=== PATIENT | female | born 1955 | race Caucasian/White ===

== ENCOUNTER 2019-10-22 07:49 | Outpatient (CLI) | payer SELFPAY ==
[2019-10-22 08:54] LABS: Alanine Aminotransferase 18 U/L (14-59); Albumin Level 3.5 g/dL (3.4-5.0); Alkaline Phosphatase 75 U/L (46-116); Anion Gap 10.9 mmol/L (7-16); Aspartate Amino Transferase 17 U/L (15-37); Bilirubin,Total 0.5 mg/dL (0.00-1.00); Blood Urea Nitrogen 7 mg/dL (7-18); Calcium 9.3 mg/dL (8.5-10.1); Carbon Dioxide 32 mmol/L (21-32); Chloride 103 mmol/L (98-108); Cholesterol 211 mg/dL (0-200); Estimated Glomerular Filt Rate > 60; Glucose 124 mg/dL (70-99); HDL Direct 29 mg/dL (40-60); LDL Cholesterol Calculated 142 mg/dL (<130); Osmolality Calculated 293 mOsm/kg (285-295); Potassium 3.9 mmol/L (3.5-5.1); Sodium 142 mmol/L (136-145); Total Protein 7.2 g/dL (6.4-8.2); Triglycerides 201 mg/dL (0-150)
== END 2019-10-22 07:50 | disposition home or self-care (01) ==
LOC: CHSLAB 07:53
PROVIDERS: PCP Internal Medicine; Visit Provider Internal Medicine
DX: E78.5 Hyperlipidemia, unspecified (principal); I10 Essential (primary) hypertension
CPT/HCPCS: 36415; 80053; 80061

== ENCOUNTER 2023-02-16 15:20 | Emergency (ER) | payer MEDICARE, SELFPAY ==
--- NOTE | ~2023-02-16 | XR_ITS ---
EXAM: XR shoulder LT min 2V, XR forearm LT 2V, XR elbow LT min 3V DATE: 02/16/2023 16:33 (accession [id number]), 02/16/2023 16:34 (accession [id number]), 02/16 16:33 (accession [id number]) HISTORY: fall 1 wk ago, pain to posterior shoulder-mid humerus . COMPARISON: None available. FINDINGS: Decreased mineralization. Soft tissue anchors over the glenoid labrum. Mildly angulated mi ldly overlapping fracture of the surgical neck of the left proximal humerus. No lytic or blastic lesi on. Moderate degenerative change at the AC joint and glenohumeral joint. Mild degenerative change at the left elbow joint and intercarpal joint. No erosion or periosteal change. Soft tissues within norm al limits. IMPRESSION: Mildly angulated, mildly overlapping fracture of the left proximal humerus. Reviewed, dictated and finalized at location K. [employer] IMPRESSION: Mildly angulated, mildly overlapping fracture of the left proximal humerus. IMPRESSION: Mildly angulated, mildly overlapping fracture of the left proximal humerus.
[2023-02-16 15:28] VITALS: BP 134/86; PULSE 106; RESP 18; TEMP 36.7; O2SAT 94
--- NOTE | 2023-02-16 15:52 | ED.UPPEXIN ---
HPI - Extremity Injury (Upper) General Chief Complaint: Extremity Injury, Upper Stated Complaint: L shoulder pain/fall Source: patient Mode of arrival: ambulatory History of Present Illness HPI narrative: Pt fell on the left side and hit her LUE a week ago. Pain is the same, a/w limited ROM, inability to move her arm. Pain at the shoulder and elbow. Bruised in the arm. Did not hit her head. Pt is not on blood thinner. Denied any altered mental status. MD complaint: injury to: left, shoulder, arm, elbow and forearm Onset (ago): day(s) Related Data Home Medications Medication Instructions Recorded Confirmed amlodipine 5 mg-benazepril 10 mg 1 cap PO DAILY 02/16/23 02/16/23 capsule cetirizine 10 mg tablet (Zyrtec) 10 mg PO DAILY 02/16/23 02/16/23 metoprolol succinate 50 mg 50 mg PO DAILY 02/16/23 02/16/23 tablet,extended release 24 hr montelukast 10 mg tablet 10 mg PO DAILY 02/16/23 02/16/23 pantoprazole 40 mg tablet,delayed 40 mg PO DAILY 02/16/23 02/16/23 release potassium chloride 10 mEq 10 meq PO DAILY 02/16/23 02/16/23 tablet,extended release triamterene 37.5 1 tablet PO DAILY 02/16/23 02/16/23 mg-hydrochlorothiazide 25 mg tablet Allergies Allergy/AdvReac Type Severity Reaction Status Date / Time acetaminophen [From Percocet] Allergy Hives Verified 02/16/23 15:30 amoxicillin [From Augmentin] Allergy Hives Verified 02/16/23 15:30 clavulanic acid Allergy Hives Verified 02/16/23 15:30 [From Augmentin] codeine Allergy Hives Verified 02/16/23 15:30 oxycodone [From Percocet] Allergy Hives Verified 02/16/23 15:30 Review of Systems Constitutional: Constitutional: Reports as per HPI and Reports no additional constitutional complaints Eyes: Eyes: Reports as per HPI and Reports no additional eye complaints ENT: Reports system reviewed and no additional complaints, except as documented and Reports as per HPI Cardiovascular: Cardiovascular: Reports as per HPI and Reports no additional cardiovascular complaints Respiratory: Respiratory: Reports as per HPI and Reports no additional respiratory complaints Gastrointestinal: Gastrointestinal: Reports as per HPI and Reports no additional gastrointestinal complaints Genitourinary: Genitourinary: Reports as per HPI Musculoskeletal: Musculoskeletal: Reports no additional musculoskeletal complaints and Reports as per HPI Integumentary/Breasts: Skin/Breast: Reports system reviewed and no additional complaints, except as docu and Reports as per HPI Neurologic: Reports system reviewed and no additional complaints, except as documented and Reports as per HPI Psychiatric: Psychiatric: Reports no additional psychiatric complaints and Reports as per HPI Endocrine: Endocrine: Reports no additional endocrine complaints and Reports as per HPI Hematologic/Lymphatic: Hematologic/Lymphatic: Reports no additional hematologic/lymphatic complaints and Reports as per HPI Allergic/Immunologic: Allergic/Immunologic: Reports no additional allergic/immunologic complaints and Reports as per HPI Exam Const: General: cooperative, healthy appearing, comfortable, no acute distress, well developed, alert, awake, average body habitus and well nourished Nutritional Appearance: average body habitus and well nourished Orientation/consciousness: oriented to person, oriented to place and oriented to time Limitations: no limitations HENMT: Head: normal to inspection Ears: hearing grossly normal bilaterally, external ears normal and TM's normal bilaterally Face/Nose/Sinus: Normal external nose present, Normal nares present, No nasal polyps present, Normal nasal mucous membranes and turbinates present, Normal septum present, No nasal discharge present, normal facial exam, sinuses nontender and face symmetric Face and sinus: normal facial exam, sinuses nontender and face symmetric Mouth: Yes Normal oral and palatal mucosa present, Yes lip normal, Yes tongue normal, Yes Normal salivary glands an
--- NOTE | 2023-02-16 16:28 | PC.NURSE ---
On 02/16/23, the student, [johnathan alaniz ], provided care and completed [facility] documentation on this patient. I have reviewed the student's documentation and agree with the findings.
[2023-02-16 17:45] VITALS: BP 146/76; PULSE 81; RESP 18; TEMP 36.6; O2SAT 98
== END 2023-02-16 17:49 | disposition home or self-care (01) ==
PROVIDERS: Emergency Provider Emergency Medicine
DX: S42.292A Other displaced fracture of upper end of left humerus, initial encounter for closed fracture (principal); Z79.899 Other long term (current) drug therapy; W19.XXXA Unspecified fall, initial encounter; Z91.81 History of falling
CPT/HCPCS: 73030; 73080; 73090; 99284; A4565

== ENCOUNTER 2023-09-30 12:59 | Outpatient (CLI) | payer MEDICARE, SELFPAY ==
--- NOTE | ~2023-09-30 | DEXA_ITS ---
? Bone Density Report? Name:? JENA JYOTHI Carmelita Patient ID:??? [id number] Age:? 68 Sex:? Female Ethnicity:? White Date of : 1955 Indication: postmenopausal; screening for osteoporosis; height loss; prior fracture; asthma or emphysema; hysterectomy; Referring Provider: ANTONIA, DAFNE Shaw Study: Bone densitometry was performed. Exam Date: September 30, 2023 Accession number: [id number] Bone Density: Region?BMD??? T-score? Z-score?? Classification AP Spine(L1-L4)? 0.706?? -3.1? -1.3? Osteoporosis Femoral Neck (Left)? 0.602?? -2.2? -0.7? Osteopenia Total Hip (Left)? 0.612?? -2.7? -1.4? Osteoporosis Femoral Neck (Right)? 0.583?? -2.4? -0.8? Osteopenia Total Hip (Right)? 0.672?? -2.2? -0.9? Osteopenia Femoral Neck Mean? 0.593?? -2.3? -0.7? Osteopenia Total Hip Mean? 0.642?? -2.5? -1.2? Osteoporosis World Health Organization criteria for BMD impression classify patients as: Normal (T-score at or above -1.0), Osteopenia (T-score between -1.0 and -2.5), or Osteoporosis (T-score at or below -2.5). 10-year Fracture Risk: FRAX not reported because: ? Some T-score for Spine Total or Hip Total or Femoral Neck at or below -2.5 Clinical Information Provided by Patient: Has had a low trauma fracture Smokes Has the following medical conditions: Asthma or Emphysema, Hysterectomy Patient maximum height was 65 Menopause Age: 40 No regular weight bearing exercise Does not regularly consume dairy products Drinks caffeinated beverages Onset of menses at age 14 Number of children 2 Missed period for more than 6 months in a row Impression: The patient has established osteoporosis, based on the Total Spine T-score and the existence of a prior fracture. The patient has risk factors, including: smoking, previous fracture. Discussion: HIGH RISK OF FRACTURE. BONE DENSITY IS UNDESIRABLY LOW AT ONE OR MORE SKELETAL SITES, CONSISTENT WITH POSTMENOPAUSAL OSTEOPOROSIS. This patient's lowest T-score, in a patient who has previously fractured, meets the World Health Organization's (WHO) criteria for severe osteoporosis. In untreated patients, the risk of osteoporotic fracture increases approximately two-fold for each 1.0 SD decrease in T-score.? Low bone density is not the only risk factor for fracture; also consider factors such as patient's age, frailty or poor health, risk of falling, risk of injury, previous osteoporotic fracture, family history of osteoporosis, cigarette smoking, low body weight, etc.? Not everyone with low bone mineral density has osteoporosis; osteomalacia and other metabolic bone disorders should also be considered. Patients who have osteoporosis should be e
--- NOTE | ~2023-09-30 | CT_ITS ---
EXAMINATION: CT lung screening DATE: 09/30/2023 13:14 INDICATION: History of nicotine dependence TECHNIQUE: Computed tomography (CT) of the chest was performed without intravenous contrast. Addition al 3D reconstructions utilizing coronal maximum intensity projection (MIP) were performed. Automated exposure control and iterative reconstruction technique were employed. The dose-length product was 64 .52 mGy-cm. COMPARISON: None FINDINGS: There are a few scattered <4 mm pulmonary nodules in both lungs. These include a few lenticular nodul es along the fissures consistent with intrafissural lymph nodes. No other larger pulmonary nodules, p neumonia, pulmonary edema or pleural effusion. Heart size is normal. Atherosclerotic coronary artery calcification. No pericardial effusion. Thoracic aorta is normal in caliber. No pathologically enlarg ed thoracic lymphadenopathy. Mild S-shaped curvature of the thoracic spine with moderate spondylosis. IMPRESSION: 1. Lung-RADS category 2: Benign appearance or behavior. Continue annual screening with noncontrast lo w-dose chest CT in 12 months. Reviewed, dictated and finalized at location B. IMPRESSION: 1. Lung-RADS category 2: Benign appearance or behavior. Continue annual screeni ng with noncontrast low-dose chest CT in 12 months.
== END 2023-09-30 13:00 | disposition home or self-care (01) ==
LOC: CHSIMG 13:01
PROVIDERS: PCP Internal Medicine; Visit Provider Internal Medicine
DX: Z12.2 Encounter for screening for malignant neoplasm of respiratory organs (principal); Z87.891 Personal history of nicotine dependence; Z78.0 Asymptomatic menopausal state; M81.0 Age-related osteoporosis without current pathological fracture; M85.89 Other specified disorders of bone density and structure, multiple sites
CPT/HCPCS: 71271; 77080

== ENCOUNTER 2024-05-08 18:34 | Emergency (ER) | payer MEDICARE, SELFPAY ==
[2024-05-08] VITALS (7 sets, daily range): BP systolic 147–154; BP diastolic 82–88; PULSE 80–85; RESP 17–21; TEMP 37.1; O2SAT 94–97
--- NOTE | ~2024-05-08 | XR_ITS ---
EXAMINATION: XR chest 1V portable Exam Date/Time: 05/08/2024 19:07 ALL AROUND PRESSER HISTORY: COPD exacerbation Comparison: None. RESULT: Lines, tubes, and devices: None. Lungs and pleura: Clear. Cardiomediastinal silhouette: Stable. Other: No acute osseous or upper abdominal finding. IMPRESSION: No acute cardiopulmonary process. Reviewed, dictated and finalized at location K. AROUND PRESSER
--- OUTSIDE RECORDS SUMMARY | 2024-05-08 18:37 | XMS_ITS | Patient Health Summary ---
Author Organization [facility] Address [address] [place] [address] Care Team Providers Care Pilot Boat Operator Name Role Phone Bhaskar Henry MD Primary Care Provider [phone] Note from [facility],non-owned Affiliates and Associated Physician Practices is amultiple site organization consisting of ambulatory clinics and hospital sitesin [place], [place], [place] and [place]. This disclosure is being madepursuant to the Care Everywhere program and may not contain all information available regarding this patient. Last updated 17.[facility] Allergies * Chicken-Derived Products(Other) * Codeine(Urticaria,Other) -Medium Criticality * Albumin(Anaphylaxis) -High Criticality * Fish(Anaphylaxis) -High Criticality * Latex(Anaphylaxis,Other) -High Criticality * Shellfish Allergy(Anaphylaxis,Other) -High Criticality * Sulfa Drugs(Nausea and/or Vomiting,Rash,Vomiting) -Medium Criticality Medications * Be aware that medications may not be up to date on this document. Alwaysverify current medications with the patient. * metoprolol succinate XL 24hr (TOPROL XL) 50 MG tablet Take 50 mg by mouth once daily * cetirizine (ZYRTEC) 10 MG tablet Take 10 mg by mouth once daily * pantoprazole EC (PROTONIX) 40 MG tablet Take 40 mg by mouth once daily * ascorbic acid (VITAMIN C) 500 MG tablet Take 500 mg by mouth once daily * simethicone (GAS-X) 80 MG tablet Take 1 tablet by mouth once daily * montelukast (SINGULAIR) 10 MG tablet Take 10 mg by mouth once daily * vitamin E (TOCOPHERYL) 400 UNIT capsule Take 400 Units by mouth once daily * albuterol HFA (PROVENTIL;VENTOLIN;PROAIR) 108 (90 Base) MCG/ACT inhaler (Started 07/30/2019) Inhale 2 puffs by mouth 2 times daily * Multiple Vitamins-Minerals (MULTIVITAMIN ADULT PO) Take 1 tablet by mouth once daily * aspirin (ASPIRIN) 325 MG tablet Take 325 mg by mouth once daily * Wbheuni-Jvsjuhdoj-Telcuqd D 500-250-200 MG-MG-UNIT TABS Take 1 tablet by mouth once daily * nystatin (MYCOSTATIN) 585463 UNIT/ML suspension(Started 08/04/2019) Swish and swallow 5 mL 3 times daily as needed with food * pravastatin (PRAVACHOL) 40 MG tablet(Started 01/29/2020) Take 1 tablet by mouth at bedtime 11 refills by 01/28/2021 * dexamethasone (DECADRON) 1 MG tablet(Started 02/22/2020) Take 2 tablets by mouth 3 times daily Active Problems Problem Noted Date Diagnosed Date Cerebrovascular accident (CVA) 01/28/2020 Social History Tobacco Use Types Packs/Day Years Used Date Smoking Tobacco: Some Days Cigarettes Smokeless Tobacco: Never Tobacco Cessation:Ready to Q uit: No; Counseling Given: Yes Alcohol Use Standard Drinks/Week Comments Never 0 (1 standard drink = 0.6 oz pur e alcohol) AUDIT-C Answer Date Recorded Q1: How often do you have a drink containing alc ohol? Never 02/22/2020 Average Number of Drinks Not on file 020 Frequency of Binge Drinking Not on file 02/05 Sex and Gender Information Value Date Recorded Sex Assigned at Not on file Gender Identity Not on file Sexual Orientation Not on file Last Filed Vital Signs Vital Sign Reading Time Taken Comments Blood Pressure 130/46 01/29/2020 11:46 AM CDT Pulse 73 01/29/2020 11:46 AM CDT Temperature 37.2 ??C (98.9 ??F) 01/29/2020 11:46 AM C DT Respiratory Rate 18 01/29/2020 11:46 AM CDT Oxygen Saturation 92% 01/29/2020 11:46 AM CDT Inhaled Oxygen Concentration - - Weight 81.6 kg (180 lb) 02/22/2020 2:47 PM 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 ENGINEER Height 165.1 cm (5' 5 ) 02/22/2020 2:47 PM QUALITY ENGINEER Body Mass Index 29.95 02/22/2020 2:47 PM QUALITY ENGINEER Procedures * CARDIAC RHYTHM STRIP ORDER(Performed 02/01/2020) * GLUCOSE - POINT OF CARE(Performed 01/29/2020) * GLUCOSE - POINT OF CARE(Performed 01/29/2020) * TROPONIN I(Performed 01/29/2020) * CBC W AUTO DIFFERENTIAL(Performed 01/29/2020) * LIPID PROFILE(Performed 01/29/2020) * TROPONIN I(Performed 01/28/2020) * MRI BRAIN WWO CONTRAST(Performed 01/28/2020) Performed for Cerebrovascular accident (CVA), unspecified mechanism (HCC) * CREATININE - POCT INTERFACED(Performed 01/28/2020) * URINE MICROSCOPIC ONLY REFLEX TO CULTURE(Performed 01/28/2020) * HEMOGLOBIN A1C(Performed 01/28/2020) * URINALYSIS REFLEX MICROSCOPIC REFLEX CULTURE(Performed 01/28/2020) * TROPONIN I(Performed 01/28/2020) * PT EVAL AND TREAT(Performed 01/28/2020) * CT ANGIO BRAIN NECK STROKE(Performed 01/28/2020) Performed for Cerebrovascular accident (CVA), unspecified mechanism (HCC) Results * CARDIAC RHYTHM STRIP ORDER (02/01/2020 7:59 PM CDT) Narrative 02/01/2020 7:59 PM CDT Ordered by an unspecified provider. Scanned Document CARDIAC SERVICES ORD ERABLES * (ABNORMAL) GLUCOSE - POINT OF CARE (01/29/2020 11:45 AM CDT) Only the most recent of2 resultswithin the time period is included. Glucose WB/POC 129(H) 70 - 106 mg/dL 01/29/2020 12:32 PM CDT [facility] Specimen Type Arterial/C apillary 01/29/2020 12:32 PM CDT [facility] Blood BLOOD SPECIMEN / Unknown 01/29/2020 11:45 AM CDT 01/29/2020 12:32 PM CDT Nishant Taylor MD LAB - POINT OF CARE ORDERABLES [facility] [address] [place] [address] * TROPONIN I (01/29/2020 4:34 AM CDT) Only the most recent of3 resultswithin the time period is included. Pathologist [facility] Troponin I <0.010 <0.038 ng/mL 01/29/2020 5:39 AM CDT [facility] Blood BLOOD SPECIMEN / Unknown Venipuncture / Unknown 01/29/2020 4:34 AM CDT 01/29/2020 4:51 AM CDT Dora Mcwilliams ICE CREAM SERVER-RESPOOLER LAB - CHEMISTRY ORDERABLES [facility] [address] [place] [address] * (ABNORMAL) CBC W AUTO DIFFERENTIAL (01/29/2020 4:33 AM CDT) [facility] WBC 9.9 4.4 - 10.7 x10E9/L 01/29/2020 5:05 AM CDT [facility] WBC Corrected 01/29/2020 5:05 AM CDT [facility] RBC 4.27 3.80 - 5.20 x10E12/L 01/29/2020 5:05 AM CDT [facility] Hemoglobin 13.7 12.0 - 15.6 gm/dL 01/29/2020 5:05 AM CDT [facility] Hematocrit 39.5 35.9 - 45.5 % 01/29/2020 5:05 AM CDT [facility] MCV 92.5 80.7 - 98.3 fl 01/29/2020 5:05 AM CDT [facility] MCH 32.1 26.7 - 34.0 pg 01/29/2020 5:05 AM CDT [facility] MCHC 34.7 30.8 - 35.9 gm/dL 01/29/2020 5:05 AM CDT [facility] Platelet Count 417(H) 153 - 416 x10E9/L 01/29/2020 5:05 AM CDT [facility] RDW-CV 12.8 12.1 - 14.9 % 01/29/2020 5:05 AM CDT [facility] MPV 8.8(L) 9.4 - 12.9 fl 01/29/2020 5:05 AM CDT [facility] Neutrophils % 58.3 44.0 - 73.0 % 01/29/2020 5:05 AM CDT [facility] Lymphocytes % 30.1 20.0 - 43.0 % 01/29/2020 5:05 AM CDT [facility] Monocytes % 7.8 5.0 - 13.0 % 01/29/2020 5:05 AM CDT [facility] Eosinophils % 2.1 0.0 - 6.0 % 01/29/2020 5:05 AM CDT [facility] Basophils % 1.2 0.0 - 2.0 % 01/29/2020 5:05 AM CDT [facility] Immature Granulocytes 0.5 0 - 1 % 01/29/2020 5:05 AM CDT [facility] Neutrophil Absolute 5.78 2.01 - 7.14 x10E9/L 01/29/2020 5:05 AM CDT [facility] Lymphocytes Absolute 2.98 1.07 - 3.94 x10E9/L 01/29/2020 5:05 AM CDT [facility] Monocytes Absolute 0.77 0.26 - 1.07 x10E9/L 01/29/2020 5:05 AM CDT [facility] Eosinophils Absolute 0.21 0 - 0.47 x10E9/L 01/29/2020 5:05 AM CDT [facility] Basophils Absolute 0.12(H) 0 - 0.08 x10E9/L 01/29/2020 5:05 AM CDT [facility] Immature Granulocytes Absolute 0.05 0.00 - 0.06 x10E9/L 01/29/2020 5:05 AM CDT [facility] nRBC Auto 0 /100 WBC 01/29/2020 5:05 AM CDT [facility] Blood BLOOD SPECIMEN / Unknown Venipuncture / Unknown 01/29/2020 4:33 AM CDT 01/29/2020 4:51 AM CDT Dora Mcwilliams APRN-RESPOOLER LAB - HEMATOLOG Y ORDERABLES [facility] [address] [place] [address] * (ABNORMAL) LIPID PROFILE (01/29/2020 4:33 AM CDT) [facility] Signature Cholesterol 201(H) <200 mg/dL 01/29/2020 5:40 AM CDT [facility] Triglycerides 232(H) <150 mg/dL 01/29/2020 5:40 AM CDT [facility] HDL Cholesterol 28(L) >40 mg/dL 0 5:40 AM CDT [facility] LDL Calculated 127 <130 mg/dL 01/29/2020 5:40 AM CDT [facility] VLDL Calculated 46(H) <=30 mg/dL 0 5:40 AM CDT [facility] Chol HDL Ratio 7.2(H) <4.5 01/29/2020 5:40 AM CDT [facility] LDL/HDL Ratio 4.5 <5.0 01/29/2020 5:40 AM CDT [facility] Blood BLOOD SPECIMEN / Unknown Venipuncture / Unknown 01/29/2020 4:33 AM CDT 01/29/2020 4:51 AM CDT Dora Poppy ICE CREAM SERVER-RESPOOLER LAB - CHEMISTRY ORDERABLES [facility] [address] [place] [id number] * MRI BRAIN WWO CONTRAST (01/28/2020 6:44 PM CDT) Anatomical Region Laterality Modality Head Magnetic Resonan ce 01/28/2020 6:58 PM CDT Impressions 01/28/2020 7:07 PM CDT No evidence of acute infarct. 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 The leading differential for this lesion is a vestibular schwannoma and less likely meningioma. *Reading Radiologist: Ar Sarmiento on 01/28/2020 at 7:07 PM Narrative 01/28/2020 7:07 PM CDT MRI Brain With and Without Contrast Indication: Stroke Technique: Multisequence, multiplanar sequences of the brain with and without contrast, ??16 mL of Dotarem was administered. Findings: There is a 1.5 x 1.5 x 2.2 cm enhancing mass at the right cerebellopontine angle which extends into the internal auditory canal. There is associated adjacent dural thickening. No additional masses are seen. No diffusion restriction is seen to indicate ischemia. ??No hemorrhage or midline shift is seen. Scattered periventricular white matter intensities are most consistent with chronic small vessel ischemic disease. The ventricular size is normal. There are no extra-axial fluid collections. Flow void is seen in the major intracranial vessels. Bilateral, right greater than left mastoid air cell effusions. Procedure Note Ar Sarmiento MD - 01/28/2020 MRI Brain With and Without Contrast Indication: Stroke Technique: Multisequence, multiplanar sequences of the brain with and without contrast, 16 mL of Dotarem was administered. Findings: There is a 1.5 x 1.5 x 2.2 cm enhancing mass at the right cerebellopontine angle which extends into the internal auditory canal. There is associated adjacent dural thickening. No additional masses are seen. No diffusion restriction is seen to indicate ischemia. No hemorrhage or midline shift is seen. Scattered periventricular white matter intensities are most consistent with chronic small vessel ischemic disease. The ventricular size is normal. There are no extra-axial fluid collections. Flow void is seen in the major intracranial vessels. Bilateral, right greater than left mastoid air cell effusions. IMPRESSION No evidence of acute infarct. 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 The leading differential for this lesion is a vestibular schwannoma and less likely meningioma. *Reading Radiologist: Ar Sarmiento on 01/28/2020 at 7:07 PM Nishant Taylor MD MR ORDERABLES * (ABNORMAL) CREATININE - POCT INTERFACED (01/28/2020 6:24 PM CDT) Creatinine POCT 0.36(L) 0.70 - 1.20 mg/dL 01/28/2020 6:36 PM CDT [facility] Blood BLOOD SPECIMEN / Unknown 01/28/2020 6:24 PM CDT 01/28/2020 6:36 PM CDT Nishant Taylor MD LAB - POINT OF CARE ORDERABLES [facility] [address] [place] [address] * URINE MICROSCOPIC ONLY REFLEX TO CULTURE (01/28/2020 2:44 PM CDT) Reflex Status Culture not indicated 01/28/2020 3:08 PM CDT [facility] RBC UA 0-2 None Seen, 0-2, 3-5 # /hpf 01/28/2020 3:08 PM CDT [facility] WBC UA 0-5 None Seen, 0-5 # /hpf 01/28/2020 3:08 PM CDT [facility] Bacteria UA None Seen None Seen 01/28/2020 3:08 PM CDT [facility] Squamous Epithelial Cells None Seen None Seen, 0-2, 3-5 /hpf 01/28/2020 3:08 PM CDT [facility] Urine URINE SPECIMEN OBTAINED BY CLEAN CATCH PROCEDURE / Unknown Collection / Unknown 01/28/2020 2:44 PM CDT 01/28/2020 3:00 PM CDT Narrative [facility] - 01/28/2020 3:08 PM CDT Dora Mcwilliams ICE CREAM SERVER-RESPOOLER LAB - URINALYSI S ORDERABLES [facility] [address] [place] [address] * (ABNORMAL) URINALYSIS REFLEX MICROSCOPIC REFLEX CULTURE (01/28/2020 2:44 PM CDT) Color UA Straw Straw, Yellow 01/28/2020 3:07 PM CDT [facility] Clarity UA Clear Clear 01/28/2020 3:07 PM CDT [facility] Glucose UA Negative Negative 01/28/2020 3:07 PM CDT [facility] Bilirubin UA Negative Negative 01/28/2020 3:07 PM CDT [facility] Ketone UA Negative Negative 01/28/2020 3:07 PM CDT [facility] Specific [place] UA 1.008 1.005 - 1.030 01/28/2020 3:07 PM CDT [facility] Blood UA 1+(A) Negative 01/28/2020 3:07 PM CDT [facility] pH UA 7.0 5.0 - 8.0 pH 01/28/2020 3:07 PM CDT [facility] Protein UA Negative Negative 01/28/2020 3:07 PM CDT [facility] Urobilinogen UA Negative Negative mg/dL 01/28/2020 3:07 PM CDT [facility] Nitrite UA Negative Negative 01/28/2020 3:07 PM CDT [facility] Leukocyte UA Negative Negative 01/28/2020 3:07 PM CDT [facility] Urine Microscopy Urine microscopy to follow 01/28/2020 3:07 PM CDT [facility] Reflex Status Culture not indicated 01/28/2020 3:07 PM CDT [facility] Urine URINE SPECIMEN OBTAINED BY CLEAN CATCH PROCEDURE / Unknown Collection / Unknown 01/28/2020 2:44 PM CDT 01/28/2020 3:00 PM CDT Narrative [facility] - 01/28/2020 3:07 PM CDT Dora Mcwilliams ICE CREAM SERVER-RESPOOLER LAB - URINALYSI S ORDERABLES [facility] [address] [place] [address] * HEMOGLOBIN A1C (01/28/2020 2:44 PM CDT) Hemoglobin A1c 5.4 4.2 - 5.6 % 01/28/2020 3:10 PM CDT [facility] Estimated Average Glucose 108 mg/dL 01/28/2020 3:10 PM CDT [facility] Blood BLOOD SPECIMEN / Unknown Venipuncture / Unknown 01/28/2020 2:44 PM CDT 01/28/2020 2:58 PM CDT Narrative [facility] - 01/28/2020 3:10 PM CDT The following cutoff levels are recommended by [place] [employer]. ?? A1c ??> 6.5% : considered as diabetes if two separate tests >6.5% or in an appropriate clinical setting. A1c ??5.7% - 6.4% : considered as prediabetes (suggest increased risk for diabetes and cardiovascular disease) Control target level: ??Should be individualized. ??< 7 ??for general (non- ) , ??< 8% less stringent goal, ??< 6.5 ??more stringent goal. Hemoglobin A1c measurements are used as an aid in the diagnosis of diabetic mellitus, as an aid to identify patients who may be at the risk for developing diabetic mellitus, and for the monitoring long-term blood glucose control in individuals with diabetes mellitus. ??This test should not replace glucose testing for patients with Type 1 diabetes, pediatric patients, or women. ??Falsely low HbA1c results may be observed in patients with clinical conditions that shorten erythrocyte life span or decrease mean erythrocyte age such as the presence of unstable hemoglobin variants, elevated hemoglobin F level ??or other causes of hemolytic anemia . ??HbA1c may not accurately reflect glycemic control when clinical conditions that affect erythrocyte survival are present. ??Severe Iron deficiency anemia may yield falsely high results. ??Hemoglobin A1c assay should not be used to diagnose or monitor diabetes in patients with malignancy, recent blood transfusion, chronic kidney or liver disease. ?? This method may yield falsely low results when hemoglobin (HbF) exceeds 5% in the specimen. Nishant Taylor MD LAB - CHEMISTRY TAHIRA PALMA [facility] Organization Address City/State/ZIP Co de Phone Number [facility] [address] [place] [address] * CT ANGIO BRAIN NECK STROKE (01/28/2020 12:59 PM CDT) Anatomical Region Laterality Modality Head Computed Tomogra phy 01/28/2020 1:40 PM CDT Impressions 01/28/2020 1:47 PM CDT NO HEMODYNAMICALLY SIGNIFICANT STENOSIS. EMPHYSEMA. CTA Brain: Moderate grade stenosis right P1 segment. Left posterior cerebral artery widely patent. Normal caliber and wide patency basilar artery and its remaining branch vessels. Normal caliber and wide patency bilateral middle and anterior cerebral arterial systems. IMPRESSION: MODERATE GRADE STENOSIS RIGHT P1 SEGMENT. *Reading Radiologist: Mary Jo Ortiz on 01/28/2020 at 1:47 PM Narrative 01/28/2020 1:[address] angiography neck with contrast CT angiography head with contrast CT 3D Reconstruction Clinical Indication: Acute onset of right-sided extremity weakness. Acute stroke, CVA. Technique: Axial CT images from the transverse aortic arch through the cranial vertex were obtained following the administration of 80 cc Isovue-370 intravenous contrast. Multiplanar reformatted, maximum intensity projection, and 3D volume rendered reconstructions of the arterial vasculature of the neck and brain was performed on an independent workstation. Findings: CTA Neck: Indirect assessment of the distal portions of the bilateral internal carotid arteries relative to the proximal portions reveals no hemodynamically significant stenosis. There is wide patency of the common carotid, internal carotid, external carotid, and vertebral arteries. There is no evidence of vessel stenosis or vessel occlusion. Advanced emphysema noted. Procedure Note Mary Jo Ortiz MD - 01/28/2020 CT angiography neck with contrast CT angiography head with contrast CT 3D Reconstruction Clinical Indication: Acute onset of right-sided extremity weakness. Acute stroke, CVA. Technique: Axial CT images from the transverse aortic arch through the cranial vertex were obtained following the administration of 80 cc Isovue-370 intravenous contrast. Multiplanar reformatted, maximum intensity projection, and 3D volume rendered reconstructions of the arterial vasculature of the neck and brain was performed on an independent workstation. Findings: CTA Neck: Indirect assessment of the distal portions of the bilateral internal carotid arteries relative to the proximal portions reveals no hemodynamically significant stenosis. There is wide patency of the common carotid, internal carotid, external carotid, and vertebral arteries. There is no evidence of vessel stenosis or vessel occlusion. Advanced emphysema noted. IMPRESSION NO HEMODYNAMICALLY SIGNIFICANT STENOSIS. EMPHYSEMA. CTA Brain: Moderate grade stenosis right P1 segment. Left posterior cerebral artery widely patent. Normal caliber and wide patency basilar artery and its remaining branch vessels. Normal caliber and wide patency bilateral middle and anterior cerebral arterial systems. IMPRESSION: MODERATE GRADE STENOSIS RIGHT P1 SEGMENT. *Reading Radiologist: Mary Jo Ortiz on 01/28/2020 at 1:47 PM Nishant Taylor MD CT ORDERABLES Care Teams Pilot Boat Operator Relationship Specialty Start Date End Date Bhaskar Henry MD [address] [place] [address] PCP - General Internal Medicine 01/28/20
--- OUTSIDE RECORDS SUMMARY | 2024-05-08 18:37 | XMS_ITS | Encounter Summary ---
Author Organization [facility] Address [address] [place] [address] Phone Care Team Providers Care Substance Abuse Counselor Name Role Phone Bhaskar Henry MD Primary Care Provider [phone] Juan R Milton MD Unavailable [phone] Reason for Visit * Reason Comments Medication Refill Encounter Details Date Type Department Care Team (Late Contact Info) Description 04/06/2023 Refill [facility] - Internal Medicine - [place] [address] [place] [address] Bhaskar Henry MD [address] [place] [address] Medication Refill Social History Tobacco Use Types Packs/Day Years Used Date Smoking Tobacco: Every Day Cigarettes 1.5 40 Passive Smoke Exposure: Current Smokeless Tobacco: Never Alcohol Use Standard Drinks/Week Comments No 0 (1 standard drink = 0.6 oz pur e alcohol) PHQ-2 Answer Date Recorded Total Score - Questions 1-9 3 10/05 Sexually Active Control Partners Comments Not Currently Comments No Sex and Gender Information Value Date Recorded Sex Assigned at Not on file Legal Sex Female 8:37 PM CDT Gender Identity Not on file Sexual Orientation Not on file documented as of this encounter Plan of Treatment Upcoming Encounters Date Type Department Care Team (Late Contact Info) Description 05/18/2024 2:45 PM HAT FINISHING MATERIALS PREPARER Office Visit [facility] - Internal Medicine [facility] [address] [place] [phone] Bhaskar Henry MD [address] [place] [address] 05/21/2024 2:45 PM HAT FINISHING MATERIALS PREPARER Office Visit [facility] - Neurology [facility] [address] [place] [phone] Juan R Milton MD [address] [place] [phone] documented as of this encounter Visit Diagnoses Not on filedocumented in this encounter Additional Health Concerns Assessment Noted Time PHQ-9 Depression Total Score: 3 10/16/19 23 3:00 PM CDT documented as of this encounter Care Teams Substance Abuse Counselor Relationship Specialty Start Date End Date Bhaskar Henry MD [address] [place] [address] PCP - General Internal Medicine 09/01/15 Juan R Milton MD [address] [place] [address] Consulting Physician Neurology 01/20/23 documented as of this encounter
--- OUTSIDE RECORDS SUMMARY | 2024-05-08 18:37 | XMS_ITS | Clinical Summary ---
Author Organization [facility] Address [address] [place] [address]. 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 Gender Identity Not on file Sexual Orientation Not on file Plan of Treatment Health Maintenance Due Date Last Done Comments Colorectal Cancer Screening Colonoscopy (10 Years) 1957 Hepatitis C 08/24/1975 DTaP, Tdap and Td Vaccines ( 1 - Tdap) 1976 Mammogram Screening 1997 Zoster Vaccines (1 of 2) 08/24/2007 Dexa Scan (General) 2022 Pneumococcal Vaccine: 65+ Ye ars (1 of 1 - PCV) 2022 COVID-19 Vaccine ( - 2023-2 5 season) 2023 Influenza Adult (#1) 2024 RSV Immunization or 60+ Years (1 - 1-dose 75+ series) 2032 Meningococcal B Vaccine Aged Out No l onger eligible based on patient's age to complete this topic Meningococcal Vaccine Aged Out No leland ashlee eligible based on patient's age to complete this topic RSV Immunizations Under 20 Months Aged Out No longer eligible based on patient's age to complete this topic
--- OUTSIDE RECORDS SUMMARY | 2024-05-08 18:37 | XMS_ITS | Encounter Summary ---
Author Organization [facility] Address [address] [place] [address] Phone Care Team Providers Care Cloth Booker Name Role Phone Bhaskar Henry MD Primary Care Provider Juan R Milton MD Unavailable [phone] Encounter Details Date Type Department Care Team (Late st Contact Info) Description 10/18/2022 Telephone [facility] Referral Management Services [address] [place], [place] [id number] Bhaskar Henry MD [address] [facility] [address] Social History Tobacco Use Types Packs/Day Years [...] on file Sexual Orientation Not on file COVID-19 Exposure Response Date Recorded In the last 10 days, have yo u been in contact with someone who was confirmed or suspected to have Coronavirus/COVID-19? No / Unsure 10/15/2022 2:46 PM CDT documented as of this encounter Miscellaneous Notes * Telephone Encounter - Viraj River Odonnell - 10/18/2022 10:08 AM CDT SITUATION: Patient requesting provider review Dermatology Referral. BACKGROUND: Referral unable to be processed. ASSESSMENT: Request for provider review due to the following reason(s): Patient refusal or unable to contact patient. RECOMMENDATION: Based on the above information the provider has the following option(s): Referral has been placed to the referred to location/provider as requested by Centralized Referral Management. [facility] [place] On[facility] - Centralized Referral Management 10/18/2022, 10:08 AM CDT documented in this encounter Plan of Treatment Upcoming Encounters Date Type Department Care Team (Late st Contact Info) Description 05/18/2024 2:[address] MAINTENANCE SUPERVIS[address] Office Visit [facility] - Internal Medicine - [place] [address] [place] [id number] Bhaskar Henry MD [address] [place] [address] 05/21/2024 2:[address] MAINTENANCE SUPERVIS[address] Office Visit [facility] - Neurology - [place] [address] [place] [address] Juan R Milton MD [address] [place] [phone] documented as of this encounter Visit Diagnoses Not on filedocumented in this encounter Additional Health Concerns Assessment Noted Time PHQ-9 Depression Total Score: 3 10/16/19 23 3:00 PM CDT documented as of this encounter Care Teams Cloth Booker Relationship Specialty Start Date End Date Bhaskar Henry MD [address] [place] [address] PCP - General Internal Medicine 09/01/15 Juan R Milton MD [address] [place] [address] Consulting Physician Neurology 01/20/23 documented as of this encounter
--- OUTSIDE RECORDS SUMMARY | 2024-05-08 18:37 | XMS_ITS | Encounter Summary ---
Author Organization [facility] Address [address] [place] [address] Phone Care Team Providers Care Postdoctoral Scholar Name Role Phone Bhaskar Henry MD Primary Care Provider Juan R Milton MD Unavailable [phone] Reason for Visit * Reason Comments Medication Refill Encounter Details Date Type Department Care Team (Late st Contact Info) Description 01/14/2023 Refill [facility] - Neurology - [place] [address] [place] [address] Juan R Milton MD [address] [place] [phone] Medication Refill Social History Tobacco Use Types [...] on file documented as of this encounter Miscellaneous Notes * Telephone Encounter - Lisbeth Trinh RN - 01/14/2023 9:13 AM CDT Medication failed the protocol, provider to review and approve the medication order if appropriate. Requested Prescriptions Pending Prescriptions Disp Refills DULoxetine (CYMBALTA) [address] Rizo [Pharmacy Med Name: DULoxetine HCl 60 MG Oral Capsule Delayed Release Particles] 30 Capsule 0 Sig: Take 1 capsule by mouth once daily SNRI (6 Month Refill Only) Protocol Failed - 01/14/2023 9:12 AM Failed - Has an encounter in the past 6 months with a depression or anxiety visit diagnosis Failed - Patient has established therapy with Serotonin-Norepinephrine Reuptake Inhibitors for at least 6 months Passed - Visit with relevant provider in past 6 months or upcoming 90 days Recent Visits Date Type Provider Dept 10/15/22 Office Visit Bhaskar Henry MD [facility] 10/01/22 Office Visit Juan R Milton MD [facility] Neurology [facility] [place] Joyner Showing recent visits within past 182 days and meeting all other requirements Future Appointments Date Type Provider Dept 01/21/23 Appointment Bhaskar Henry MD [facility] [place] 03/06/23 Appointment Juan R Milton MD [facility] Neurology [facility] [place] Joyner Showing future appointments within next 90 days and meeting all other requirements documented in this encounter Plan of Treatment Upcoming Encounters Date Type Department Care Team (Late st Contact Info) Description 05/18/2024 2:45 PM WEATHERIZATION DIRECTOR Office Visit [facility] Medical [facility] - Internal Medicine - [place] [address] [place] [phone] Bhaskar Henry MD [address] [place] [address] 05/21/2024 2:45 PM WEATHERIZATION DIRECTOR Office Visit [facility] - Neurology - [place] [address] [facility] [place] [phone] Juan R Milton MD [address] [place] [address] documented as of this encounter Visit Diagnoses Not on filedocumented in this encounter Additional Health Concerns Assessment Noted Time PHQ-9 Depression Total Score: 3 10/16/19 23 3:00 PM CDT documented as of this encounter Care Teams Postdoctoral Scholar Relationship Specialty Start Date End Date Bhaskar Henry MD [address] [place] [address] PCP - General Internal Medicine 09/01/15 Juan R Milton MD [address] [place] [address] Consulting Physician Neurology 01/20/23 documented as of this encounter
--- OUTSIDE RECORDS SUMMARY | 2024-05-08 18:37 | XMS_ITS | Referral Summary ---
Author Organization [facility] Address [address] [place] [address] Care Team Providers Care Core Assembly Supervisor Name Role Phone Bhaskar Henry MD Primary Care Provider [phone] Source Comments [facility],non-owned Affiliates and Associated Physician Practices is amultiple site organization consisting of ambulatory clinics and hospital sitesin [place], [place], [place] and [place]. This disclosure is being madepursuant to the Care Everywhere program and may not contain all information available regarding this patient. Last updated 17.[facility] Applied Minerals Allergies Active Allergy Reactions Criticality Noted Date Comments Chicken-Derived Products Other 08/31/2015 WELTS Codeine Urticaria,Other Medium 09/05/2015 Reaction: Unknown, Albumin Anaphylaxis High 01/29/2020 Fish Anaphylaxis High 01/28/2020 Latex Anaphylaxis,Other High 08/31/2015 HUGE WELTS Shellfish Allergy Anaphylaxis,Other High 08/31/2015 HUGE WELTS Sulfa Drugs Nausea and/or Vomiting,Rash,Vomiting Medium 08/31/2015 Medications * Be aware that medications may not be up to date on this document. Alwaysverify current medications with the patient. Medication Sig Dispensed Refills Start Date End Date Status metoprolol succinate XL 24hr (TOPROL XL) 50 MG tablet Take 50 mg by mouth once daily Active cetirizine (ZYRTEC) 10 MG tablet Take 10 mg by mouth once daily Active pantoprazole EC (PROTONIX) 40 MG tablet Take 40 mg by mouth once daily Active ascorbic acid (VITAMIN C) 500 MG tablet Take 500 mg by mouth once daily Active simethicone (GAS-X) 80 MG tablet Take 1 tablet by mouth once daily Active montelukast (SINGULAIR) 10 MG tablet Take 10 mg by mouth once daily Active vitamin E (TOCOPHERYL) 400 UNIT capsule Take 400 Units by mouth once daily Active albuterol HFA (PROVENTIL;VENTOLIN; PROAIR) 108 (90 Base) MCG/ACT inhaler Inhale 2 puffs by mouth 2 times daily 07/30/2019 Active Multiple Vitamins-Minerals (MULTIVITAMIN ADULT PO) Take 1 tablet by mouth once daily Active aspirin (ASPIRIN) 325 MG tablet Take 325 mg by mouth once daily Active Lpbqfwl-Aykhqxqdu-Xo tamin D 500-250-200 MG-MG-UNIT TABS Take 1 tablet by mouth once daily Active nystatin (MYCOSTATIN) 257465 UNIT/ML suspension Swish and swallow 5 mL 3 times daily as needed with food 08/04/2019 Active pravastatin (PRAVACHOL) 40 MG tablet Take 1 tablet by mouth at bedtime 30 tablet 11 01/29/2020 Active dexamethasone (DECADRON) 1 MG tablet Take 2 tablets by mouth 3 times daily 180 tablet 02/22/2020 Active Active Problems Problem Noted Date Diagnosed Date [...] 81.6 kg (180 lb) 02/22/2020 2:47 PM RESEARCH LEADER Height 165.1 cm (5' 5 ) 02/22/2020 2:47 PM RESEARCH LEADER Body Mass Index 29.95 02/22/2020 2:47 PM RESEARCH LEADER Functional Status Functional Status Response Date of Assess ment Is person deaf or have serious hearing difficult y? No 01/28/2020 Is person blind or have serious difficulty seein g? No 01/28/2020 Does person have serious dif ficulty walking/climbing stairs? No 01/28/2020 Does person have difficulty dressing/bathing? No 01/28/2020 Does person have difficulty doing errands alone? No 01/28/2020 Cognitive Status Response Date of Assessm ent Does person have difficulty concentrating/remembering/making decisions? No 01/28/2020 Plan of Treatment Not on file Procedures Procedure Name Priority Date/Time Associated Diagnosis Comments GLUCOSE - POINT OF CARE Routine 01/29/2020 8:05 AM CDT from Last 3 Months or Most Recently Relevant to Health Maintenance Results * (ABNORMAL) GLUCOSE - POINT OF CARE (01/29/2020 8:05 AM CDT) [facility] Glucose WB/POC 107(H) 70 - 106 mg/dL 01/29/2020 12:32 PM CDT [facility] Specimen Type Arterial/C apillary 01/29/2020 12:32 PM CDT [facility] Blood BLOOD SPECIMEN / Unknown 01/29/2020 8:05 AM CDT 01/29/2020 12:32 PM CDT Nishant Taylor MD LAB - POINT OF CARE ORDERABLES Performing Organization Address City/State/[facility] Co de Phone Number [facility] [address] [place] [address] from Last 3 Months or Most Recently Relevant to Health Maintenance Advance Directives * Full Code (Latest Code Status on File) Date Activated Date Inactivated Comments 01/28/2020 2:23 PM 01/29/2020 1:46 PM Care Teams Core Assembly Supervisor Relationship Specialty Start Date End Date Bhaskar Henry MD [address] [place] [address] PCP - General Internal Medicine 01/28/20
--- OUTSIDE RECORDS SUMMARY | 2024-05-08 18:37 | XMS_ITS | Clinical Summary ---
Author Organization [facility] Address [address] [place] [address] Care Team Providers Care Truck Body Repairer Name Role Phone Bhaskar Henry MD Primary Care Provider [phone] Source Comments [facility],non-owned Affiliates and Associated Physician Practices is amultiple site organization consisting of ambulatory clinics and hospital sitesin [place], [place], [place] and [place]. This disclosure is being madepursuant to the Care Everywhere program and may not contain all information available regarding this patient. Last updated 17.[facility] [employer] Allergies Active Allergy Reactions Criticality Noted Date [...] 325 mg by mouth once daily Active Raglsws-Xmufhtctz-Rc tamin D 500-250-200 MG-MG-UNIT TABS Take 1 tablet by mouth once daily Active nystatin (MYCOSTATIN) 179942 UNIT/ML suspension Swish and swallow 5 mL 3 times daily as needed with food 08/04/2019 Active pravastatin (PRAVACHOL) 40 MG tablet Take 1 tablet by mouth at bedtime 30 tablet 11 01/29/2020 Active dexamethasone (DECADRON) 1 MG tablet Take 2 tablets by mouth 3 times daily 180 tablet 02/22/2020 Active Active Problems Problem Noted Date Diagnosed Date Cerebrovascular accident (CVA) 01/28/2020 Family History Medical History Relation Name Comments Cancer - Lung Father Diabetes - Type 2 Mother Heart Failure Mother Hyperlipidemia Mother Migraine Mother CVA Sister Cataract Sister Diabetes - Type 2 Sister Renal Disease Sister Relation Name Status Comments Father Mother Sister Social History Tobacco Use Types Packs/Day Years [...] 81.6 kg (180 lb) 02/22/2020 2:47 PM MILK DELIVERER Height 165.1 cm (5' 5 ) 02/22/2020 2:47 PM MILK DELIVERER Body Mass Index 29.95 02/22/2020 2:47 PM MILK DELIVERER Plan of Treatment Health Maintenance Due Date Last Done Comments BONE DENSITY TESTING 1955 COLOGUARD (AGES 45-75) - COL ON CA SCREENING 1957 COLON MONITORING 1957 COLONOSCOPY - COLON CA SCREENING 1957 CT COLONOGRAPHY - COLON CA SCREENING 1957 Colorectal Cancer Screening 1957 FIT - COLON CA SCREENING 1957 FLEX SIG - COLON CA SCREENING 1957 MAMMOGRAM 1957 HEPATITIS C SCREENING 08/19/1975 DTAP/TDAP/TD VACCINES (1 - Tdap) 1976 PNEUMOCOCCAL VACCINE 50+ (1 of 2 - PCV) 1976 ZOSTER VACCINE (1 of 2) 08/24/2007 SCREENING FOR DIABETES 01/28/2023 0, 01/29/2020, 01/28/2020 COVID-19 VACCINE (1 - 2023-2 5 season) 2023 INFLUENZA VACCINE (#1) 2023 DEPRESSION SCREENING 04/07/2024 Respiratory Syncytial Virus (RSV) Vaccine Pt: or over 60 yrs (1 - 1-dose 75+ series) 2032 HEPATITIS B VACCINE Aged Out No longe r eligible based on patient's age to complete this topic HIB VACCINE Aged Out No longer eligi ble based on patient's age to complete this topic HPV VACCINE Aged Out No longer eligi ble based on patient's age to complete this topic MENINGOCOCCAL (Group B) VACCINE Aged Out No longer eligible b ased on patient's age to complete this topic MENINGOCOCCAL VACCINE Aged Out No [place] ashlee eligible based on patient's age to complete this topic Procedures Procedure Name Priority Date/Time Associated Diagnosis Comments GLUCOSE - POINT OF CARE Routine 01/29/2020 8:05 AM CDT from Last 3 Months or Most Recently Relevant to Health Maintenance Results * (ABNORMAL) GLUCOSE - POINT OF CARE (01/29/2020 8:05 AM CDT) Glucose WB/POC 107(H) 70 - 106 mg/dL 01/29/2020 12:32 PM CDT [facility] Specimen Type Arterial/C apillary 01/29/2020 12:32 PM CDT [facility] Blood BLOOD SPECIMEN / Unknown 01/29/2020 8:05 AM CDT 01/29/2020 12:32 PM CDT Nishant Taylor MD LAB - POINT OF CARE ORDERABLES [facility] [address] [place] [address] from Last 3 Months or Most Recently Relevant to Health Maintenance Advance Directives * Full Code (Latest Code Status on File) Date Activated Date Inactivated Comments 01/28/2020 2:23 PM 01/29/2020 1:46 PM Care Teams Truck Body Repairer Relationship Specialty Start Date End Date Bhaskar Henry MD [address] [place] [address] PCP - General Internal Medicine 01/28/20
--- OUTSIDE RECORDS SUMMARY | 2024-05-08 18:37 | XMS_ITS | Clinical Summary ---
Author Organization [facility] Address [address] [facility] [address] [place] [address] Phone Care Team Providers Care Cleaner And Trimmer Name Role Phone Bhaskar Henry MD Primary Care Provider Juan R Milton MD Unavailable [phone] Allergies Active Allergy Reactions Criticality Noted Date Comments Amoxicillin-Pot Clavulanate Rash 03/22/2021 Codeine Hives 09/05/2015 Egg-Derived Products Other (see Comments) 08/30 WELTS Gabapentin Other (see Comments) 02/10/2024 Edema Latex Anaphylaxis,Other (see Comments) 08/31/2015 HUGE WELTS Other Other (see Comments) 08/31/2015 NUMEROUS PAIN MEDICINE CAUSE STOMACH BLEEDS'' Shellfish Allergy Anaphylaxis,Other (see Comments) 08/31/2015 HUGE WELTS Statins Rash 02/10/2024 Sulfa Antibiotics Rash,Nausea,Vomiting 08/31/19 16 Tacrolimus Other (see Comments) 10/30/2023 Severe burning Medications Simethicone (GAS-X PO) Take 1 Tab by mouth daily. Active Multiple Vitamins-Minerals (MULTIVITAMIN PO) Take 1 Tab by mouth daily. Active vitamin E (TOCOPHEROL) 400 UNIT Capsule Take 1 Capsule by mouth daily. 90 Capsule 1 Active albuterol 108 (90 Base) MCG/ACT Aerosol Solution take 2 Puffs by inhalation every 6 hours as needed for Wheezing. 18 g 2 4 Active triamcinolone (KENALOG) 0.1 % Cream Apply to rash areas bid for 2 weeks 80 g 1 4 Active Cholecalciferol (Vitamin D3) 2000 UNIT Capsule Take 2,000 Units by mouth daily. Active fluticasone (FLONASE) 50 MCG/ACT Suspension 1 [place] by Nasal route in the morning and at bedtime. Use in each nostril as directed. 16 g 4 Active alendronate (FOSAMAX) 70 MG TabletIndications :Age-related osteoporosis without current pathological fracture Take 1 Tablet by mouth every 7 days. 12 Tablet 3 4 Active amLODIPine-benaze pril (LOTREL) 5-10 MG Capsule Take 1 Capsule by mouth daily. 90 Capsule 1 4 Active cetirizine (ZyrTEC) 10 MG Tablet Take 1 Tablet by mouth daily. 4 Active DULoxetine (CYMBALTA) [address] Particles Take 1 Capsule by mouth daily. 90 Capsule 4 Active eszopiclone (LUNESTA) 2 MG TabletIndications :Primary insomnia Take 1 Tablet by mouth nightly as needed for Sleep. 30 Tablet 1 4 Active metoprolol Succinate (TOPROL-XL) 50 MG TABLET SR 24 HR Take 1 Tablet by mouth daily. 90 Tablet 1 4 Active montelukast (SINGULAIR) 10 MG Tablet Take 1 Tablet by mouth daily. 90 Tablet 1 4 Active pantoprazole (PROTONIX) 40 MG Tablet Delayed Response Take 1 Tablet by mouth daily. 90 Tablet 1 4 Active aspirin EC 81 MG Tablet Delayed Response Take 81 mg by mouth daily. Active Active Problems Problem Noted Date Diagnosed Date Polyneuropathy 02/10/2024 Age-related osteoporosis wit hout current pathological fracture 10/08/2023 Centrilobular emphysema 01/21/2023 Right-sided acoustic neuroma 03/22/2021 Mixed hyperlipidemia 04/18/2020 Primary insomnia 04/18/2020 GERD without esophagitis 12/09/2010 Allergic rhinitis, unspecified 12/09/2010 Essential hypertension, benign 06/08/2010 Non-rheumatic mitral valve disease 06/08/2010 Resolved Problems Problem Noted Date Diagnosed Date Resolved Date Mild intermittent asthma without complication 04/18/19 21 01/21/2023 Encounters Date Type Department Care Team Description 02/10/2024 2:45 PM ORTHOTIST [facility] [address] [place] [address] Bhaskar Henry MD Essential hypertension, benign (Primary Dx); Primary insomnia; Mixed hyperlipidemia; Centrilobular emphysema (HCC); GERD without esophagitis; Polyneuropathy; Age-related osteoporosis without current pathological fracture; Acute non-recurrent sinusitis, unspecified location Discharge Disposition: Discharged to home or Selfcare 02/10/2024 Travel 02/09/2024 [facility] [address] [place] [address] Bhaskar Henry MD from Last 3 Months Immunizations Immunization Administration Dates Next Due Pneumococcal Vaccine - 13 Valent 01/18/2011 Pneumococcal Vaccine Adult - 23 Valent TDAP Vaccine 09/11/2018 Family History Medical History Relation Name Comments Hypertension Father Lung Cancer Father Heart Attack Mother Hypertension Mother Cancer Paternal Grandmother brain Skin Cancer Sister 1 Kidney Disease Sister 2 Diabetes Sister 3 Relation Name Status Comments Father Mother Paternal Grandmother Sister 1 Sister 2 Sister 3 Social History Tobacco Use Types Packs/Day Years Used Date Smoking Tobacco: Every Day Cigarettes 1.5 40 Passive Smoke Exposure: Current Smokeless Tobacco: Never Tobacco Cessation:Ready to Q uit: No; Counseling Given: No Alcohol Use Standard Drinks/Week Comments No 0 (1 standard drink = 0.6 oz pur e alcohol) [facility] Utilities Answer Date Recorded In the past 12 months has [employer], gas, oil, or water [employer] threatened to shut off services in your home? No 07/31/2023 Social Connection and Isolat ion Panel [NHANES] Answer Date Recorded In a typical week, how many times do you talk on the phone with family, friends, or neighbors? More than three times a week 07/31/2023 How often do you get togethe r with friends or relatives? More than three times a week 07/31/2023 How often do you attend [facility] or zoroastrian services? Never 07/31/2023 Do you belong to any clubs o r organizations such as synagogue groups, unions, fraternal or athletic groups, or school groups? No 07/31/2023 How often do you attend meet ings of the clubs or organizations you belong to? Never 07/31/2023 Are you , , di vorced, , never , or living with a partner? 07/31/2023 AUDIT-C Answer Date Recorded Q1: How often do you have a drink containing alcohol? Never 07/31/2023 Q2: How many drinks containi ng alcohol do you have on a typical day when you are drinking? Patient does not drink Q3: How often do you have si x or more drinks on one occasion? Never 07/31/2023 Overall Financial Resource Strain (CARDIA) Answe r Date Recorded How hard is it for you to pa y for the very basics like food, housing, medical care, and heating? Not hard at all 07/31/2023 PHQ-2 Answer Date Recorded Total Score - Questions 1-9 0 08/2023 [facility] Occupational Stress Questionnaire Answer Date Recorded Do you feel stress - tense, restless, nervous, or anxious, or unable to sleep at night because your mind is troubled all the time - these days? Not at all 07/31/2023 Exercise Vital Sign Answer Date Recorde d On average, how many days pe r week do you engage in moderate to strenuous exercise (like a brisk walk)? 0 days 07/31/2023 On average, how many minutes do you engage in exercise at this level? 0 min 07/31/2023 Hunger Vital Sign Answer Date Recorded Within the past 12 months, y ou worried that your food would run out before you got the money to buy more. Never true 07/31/19 24 Within the past 12 months, t he food you bought just didn't last and you didn't have money to get more. Never true 07/31/2023 PRAPARE - Transportation Answer Date Re corded In the past 12 months, has l ack of transportation kept you from medical appointments or from getting medications? No 07/07 In the past 12 months, has l ack of transportation kept you from meetings, work, or from getting things needed for daily living? No 07/31/2023 Housing Stability Vital Sign Answer David e Recorded In the last 12 months, was t here a time when you were not able to pay the mortgage or rent on time? No 07/31/2023 In the last 12 months, how many places have you lived? 2 07/31/2023 In the last 12 months, was t here a time when you did not have a steady place to sleep or slept in a fpc (including now)? No 07/31/2023 Sexually Active Control Partners Comments Not Currently Comments No Sex and Gender Information Value Date Recorded Sex Assigned at Not on file Legal Sex Female 8:37 PM CDT Gender Identity Not on file Sexual Orientation Not on file Last Filed Vital Signs Vital Sign Reading Time Taken Comments Blood Pressure 126/70 02/10/2024 2:42 PM ORTHOTIST Pulse 78 02/10/2024 2:42 PM ORTHOTIST Temperature 37.1 ??C (98.7 ??F) 02/10/2024 2:42 PM CS T Respiratory Rate 12 10/30/2023 3:46 PM CDT Oxygen Saturation 97% 02/10/2024 2:42 PM ORTHOTIST Inhaled Oxygen Concentration - - Weight 70.3 kg (155 lb) 02/10/2024 2:42 PM ORTHOTIST Height 160 cm (5' 3 ) 02/10/2024 2:42 PM ORTHOTIST Body Mass Index 27.46 02/10/2024 2:42 PM ORTHOTIST Plan of Treatment Upcoming Encounters Date Type Department Care Team (Late st Contact Info) Description 05/18/2024 2:45 PM ORTHOTIST Office Visit [facility] - [place] [address] [place] [address] Bhaskar Henry MD [address] [place] [address] 05/21/2024 2:45 PM ORTHOTIST Office Visit [facility] - Neurology [facility] [address] [place] [address] Juan R Milton MD [address] [place] [address] Health Maintenance Due Date Last Done Comments Hepatitis C Virus (HCV) Screening 1955 Cologuard 08/24/2007 Immunochemical Fecal Occult Blood 08/24/2007 Zoster Immunization (1 of 2) 08/24/2007 SARS-COV-2 Immunization ( season) 2023 03/21/2021, 07/14/2020, 06/14/2020 Mammogram 06/18/2024 06/18/2022, 05/16/2017, 09/21/2015 Lung Cancer Screening 09/29/2024 09/30/2023 , 06/18/2022 Colonoscopy 09/04/2025 09/05/2015 Colorectal Cancer Screening 09/04/2025 DEXA Bone Density 09/29/2025 09/30/2023, 09/30/2023 Pneumococcal Immunization (5 0+ years) (3 of 3 - PCV20 or PCV21) 03/29/2026 03/29/2021, 01/18/2011 Td Immunization Every 10 Yea rs (Adults With 1 Tdap) 09/11/2028 09/11/2018 09/05/2015 DTaP/Tdap/Td Immunization Discontinued 09/11/2018 Pneumococcal Immunization Combined Discontinued 03/29/2021, 01/18/2011 Respiratory Syncytial Virus (RSV) Immunization (Adult) Completed 04/29/2023 Cervical Cancer Screening (CCS) Discontinued Pap Smear Discontinued 06/25/2023 HPV/Cotest Discontinued Hepatitis B Immunization Aged Out No longer eligible based on patient's age to complete this topic Influenza Immunization Discontinued Meningococcal Immunization (ACWY) Aged Out No longer eligible based on patient's age to complete this topic Rotavirus Immunization Aged Out No lo nger eligible based on patient's age to complete this topic Procedures Procedure Name Priority Date/Time Associated Diagnosis Comments CT CHEST SCREENING WO Routine 09/30/2023 12:00 AM CDT Smoking greater than 20 pack years ALCIDES BONE DENSITOMETRY AXIAL SKELETON Routine 09/30/2023 12:00 AM CDT Asymptomatic menopausal state ALCIDES SCREENING BILATERAL DIGITAL W CAD W KIESHA Routine 06/18/2022 1:57 PM CDT Breast cancer screening by mammogram from Last 3 Months or Most Recently Relevant to Health Maintenance Results * CT CHEST SCREENING WO (09/30/2023 12:00 AM CDT) Anatomical Region Laterality Modality Chest N/A Other 09/30/2023 us Bhaskar Henry MD IMG CT ORDERABLES Final Res ult * ALCIDES BONE DENSITOMETRY AXIAL SKELETON (09/30/2023 12:00 AM CDT) Anatomical Region Laterality Modality BODY N/A Other 09/30/2023 us Bhaskar Henry MD IMG DEXA ORDERABLES Final R esult * ALCIDES SCREENING BILATERAL DIGITAL W CAD W KIESHA (06/18/2022 1:57 PM CDT) Anatomical Region Laterality Modality breast Bilateral Mammography 06/18/2022 1:25 PM CDT Narrative 06/18/2022 3:50 PM CDT - ALCIDES SCREENING BILATERAL DIGITAL W CAD W KIESHA BILATERAL DIGITAL SCREENING MAMMOGRAM 3D/2D WITH CAD WITH MEDIOLATERAL OBLIQUE CRANIOCAUDAL: 06/18/2022 The study was acquired using digital technology and interpreted from soft copy. Current study was also evaluated with ICAD version 7.2. 2D digital mammographic views, as well as 3D digital tomosynthesis were performed in the CC and MLO projections. ?? CLINICAL: Routine screening. Patient has no complaints. No personal history of cancer. No family history of breast cancer. Due to patient habitus, additional images were taken in an effort to obtain adequate breast tissue. Possible 50 pound weight increase since last mammogram. ?? COMPARISONS: Comparison is made to exams dated: ??05/16/2017, 09/21/2015, and 01/06/2014 [facility]. ?? BREAST TISSUE:The tissue of both breasts is heterogeneously dense. This may lower the sensitivity of mammography. ?? FINDINGS: No significant masses, calcifications, or other findings are seen in either breast. ?? There has been no significant interval change. IMPRESSION: BI-RAD 1 NEGATIVE There is no mammographic evidence of malignancy. A 1 year screening mammogram is recommended. ?? A letter will be sent to the patient with these results. The patient will be entered into a reminder system with a target due date of 1 year for her next screening exam. Electronically signed by: Leatha De La Fuente M.D. ? ab/penrad:06/18/2022 14:27:49 ?? Director Of Hotel(s): Katya ?? RT Mina(R)(M), [facility] letter sent: Normal Exam ?? Reading location: [facility] BI-RADS: 1 Negative Procedure Note Leatha De La Fuente MD - 06/18/2022 - ALCIDES SCREENING BILATERAL DIGITAL W CAD W KIESHA BILATERAL DIGITAL SCREENING MAMMOGRAM 3D/2D WITH CAD WITH MEDIOLATERAL OBLIQUE CRANIOCAUDAL: 06/18/2022 The study was acquired using digital technology and interpreted from soft copy. Current study was also evaluated with ICAD version 7.2. 2D digital mammographic views, as well as 3D digital tomosynthesis were performed in the CC and MLO projections. CLINICAL: Routine screening. Patient has no complaints. No personal history of cancer. No family history of breast cancer. Due to patient habitus, additional images were taken in an effort to obtain adequate breast tissue. Possible 50 pound weight increase since last mammogram. COMPARISONS: Comparison is made to exams dated: 05/16/2017, 09/21/2015, and 01/06/2014 [facility]. BREAST TISSUE:The tissue of both breasts is heterogeneously dense. This may lower the sensitivity of mammography. FINDINGS: No significant masses, calcifications, or other findings are seen in either breast. There has been no significant interval change. IMPRESSION: BI-RAD 1 NEGATIVE There is no mammographic evidence of malignancy. A 1 year screening mammogram is recommended. A letter will be sent to the patient with these results. The patient will be entered into a reminder system with a target due date of 1 year for her next screening exam. Electronically signed by: Leatha funes/penrad:06/18/2022 14:27:49 Director Of Hotel(s): RT Moreno(R)(M), [facility] letter sent: Normal Exam Reading location: [facility] BI-RADS: 1 Negative Bhaskar Henry MD IMG MAMMO ORDERABLES Final Result from Last 3 Months or Most Recently Relevant to Health Maintenance [facility] Care Teams Cleaner And Trimmer Relationship Specialty Start Date End Date Bhaskar Henry MD [address] [place] [address] PCP - General Internal Medicine 09/01/15 Juan R Milton MD [address] [place] [address] Consulting Physician Neurology 01/20/23
--- NOTE | 2024-05-08 18:49 | ED_ITS ---
HPI - URI/Sore Throat General Chief Complaint: Upper Respiratory Infection Stated Complaint: congestion, cough, fever Time Seen by Provider: 05/08/24 18:48 Source: patient Mode of arrival: ambulatory Limitations: no limitations History of Present Illness HPI Narrative: 68-year-old female, smoker with a history of hypertension, atrial fibrillation, COPD presents to the ED with a 1 week history of -- fever -- cough with mucoid /mucopurulent sputum -- shortness of breath -- right lateral chest wall pain which started yesterday which started after a coughing spell MD elicited complaint: fever and cough Pertinent past history: COPD Onset (ago): week(s) ( 1 week) Consistency: constant Severity: moderate Description of mucous: yellow Able to tolerate fluids by mouth: Yes Exacerbating factors: nothing Relieving factors: nothing Associated symptoms: fever, chills, nasal congestion, cough and shortness of breath Treatments prior to arrival: none Related Data Home Medications ?Medication ?Instructions ?Recorded ?Confirmed ?Last Taken ?Type amlodipine 5 mg-benazepril 10 mg 1 cap PO DAILY 02/16/23 07/03/23 Unknown History capsule cetirizine 10 mg tablet (Zyrtec) 10 mg PO DAILY 02/16/23 07/03/23 Unknown History metoprolol succinate 50 mg 50 mg PO DAILY 02/16/23 07/03/23 Unknown History tablet,extended release 24 hr montelukast 10 mg tablet 10 mg PO DAILY 02/16/23 07/03/23 Unknown History pantoprazole 40 mg tablet,delayed 40 mg PO DAILY 02/16/23 07/03/23 Unknown History release triamterene 37.5 1 tablet PO DAILY 02/16/23 07/03/23 Unknown History mg-hydrochlorothiazide 25 mg tablet acetaminophen 650 mg 650 mg PO Q12H 02/18/23 07/03/23 Unknown History tablet,extended release (Tylenol Arthritis Pain) aspirin 325 mg tablet 325 mg PO DAILY 02/18/23 07/03/23 Unknown History cholecalciferol (vitamin D3) 25 25 mcg PO DAILY 02/18/23 07/03/23 Unknown History mcg (1,000 unit) capsule eszopiclone 2 mg tablet (Lunesta) 2 mg PO QHS 02/18/23 07/03/23 Unknown History multivitamin 1 tablet PO DAILY 02/18/23 07/03/23 Unknown History simethicone 125 mg capsule (Gas-X 125 mg PO DAILY PRN 02/18/23 07/03/23 Unknown History Extra Strength) vitamin E (dl, acetate) 180 mg 180 mg PO DAILY 02/18/23 07/03/23 Unknown History (400 unit) capsule Allergies Allergy/AdvReac Type Severity Reaction Status Date / Time Sulfa (Sulfonamide Allergy Severe Vomiting Verified 05/08/24 19:05 Antibiotics) egg Allergy Unknown Hives Verified 05/08/24 19:05 shellfish derived Allergy Unknown Anaphylactic Verified 05/08/24 19:05 Shock amoxicillin (From Augmentin) Allergy Hives Verified 05/08/24 19:05 clavulanic acid (From Allergy Hives Verified 05/08/24 19:05 Augmentin) codeine Allergy Hives Verified 05/08/24 19:05 oxycodone (From Percocet) Allergy Hives Verified 05/08/24 19:05 Review of Systems 2 Review of Systems: All systems reviewed & are unremarkable except as noted in HPI and below Constitutional: Constitutional: Reports as per HPI and Reports no additional constitutional complaints Eyes: Eyes: Reports as per HPI and Reports no additional eye complaints ENT: Reports system reviewed and no additional complaints, except as documented, Reports as per HPI and Reports nasal congestion Cardiovascular: Cardiovascular: Reports as per HPI, Reports no additional cardiovascular complaints and Reports chest pain ( right lateral chest wall pain which hurts with 3) Respiratory: Respiratory: Reports as per HPI, Reports no additional respiratory complaints, Reports chest congestion, Reports cough and Reports dyspnea Gastrointestinal: Gastrointestinal: Reports as per HPI and Reports no additional gastrointestinal complaints Genitourinary: Genitourinary: Reports no additional female genitourinary complaints and Reports as per HPI Musculoskeletal: Musculoskeletal: Reports no additional musculoskeletal complaints, Reports as per HPI and Reports myalgias Integumentary/Breasts: Skin/Breast: Reports system reviewed and no additional complaints, except as docu and Reports as per HPI Neurologic: Reports system reviewed and no additional complaints, except as documented and Reports as per HPI Psychiatric: Psychiatric: Reports no additional psychiatric complaints and Reports as per HPI Endocrine: Endocrine: Reports no additional endocrine complaints and Reports as per HPI Hematologic/Lymphatic: Hematologic/Lymphatic: Reports no additional hematologic/lymphatic complaints and Reports as per HPI Allergic/Immunologic: Allergic/Immunologic: Reports no additional allergic/immunologic complaints and Reports as per HPI [facility] Past Medical History Medical History Lung nodules Mitral valve prolapse Atrial fibrillation Hypertension Neuropathy Vestibular schwannoma Surgical History Surgical History History of History of hysterectomy History of carpal tunnel surgery of right wrist History of elbow surgery right History of shoulder surgery left- labral tear right- rtc, bicep tendon repair Family History Family History Other Cancer Diabetes mellitus Heart disease Social History Social History Smoking packs per day: 1.25 Smoking cigarettes per day: 25.0 Smoking status: Current every day smoker Alcohol intake: never Substance use type: does not use Do You Feel Safe in your Home?: Yes Lack of Transportation: No Lack of Food: Sometimes True Current Housing: I Have Housing Concerned About Future Housing: No Difficulty Paying Gas/Electric Bills: No Difficulty Paying for Meds: No Currently Unemployed: No Education: High School Diploma/GED Difficulty w/ Childcare or Family Care: No Living arrangements: with family Occupation/Education: retired Exam 2 Narrative: oxygen saturation 96% on room air with a respiratory rate of 20. Const: General: ill appearing Orientation/consciousness: patient oriented x3 Limitations: no limitations HENMT: Head: normal to inspection Ears: external ears normal F tasia/Nose/Sinus: Normal external nose present Face and sinus: normal facial exam Mouth: Yes Normal oral and palatal mucosa present Throat: posterior oropharynx normal Eyes: Conjunctivae: conjunctivae normal Pupils: Equal, round and reactive pupils present Direct Ophthalmoscopy: no photophobia Neck: Neck: normal visual inspection, no lymphadenopathy and no meningeal signs Chest: Chest palpation & inspection: normal inspection of the chest Resp: Effort & Inspection: normal respiratory effort Auscultation: rhonchi and diminished lung sounds Other: Right lateral chest wall pain. Tenderness on palpation. Cardio: Rate: regular rate Rhythm: regular rhythm GI: GI Palp: Yes Soft to palpation Other: no tenderness/rigidity /rebound. : General: Yes no CVA tenderness Back/Spine/Pelvis: Back: no CVA tenderness Skin: General skin exam: normal color Rashes: no rashes Wounds: no wounds Neuro: General: patient oriented x3, moves all extremities, no meningeal signs and no focal motor deficits Cranial nerves: Yes Nystagmus not present S peech: normal speech Gait exam (Neuro): Normal gait present Extrem: General: normal to inspection and no clubbing, cyanosis or edema Psych: Mental Status: mental status grossly normal Affect: normal affect Attitude: cooperative Course Course Emergency Course: COPD exacerbation-- the clinical history of cough with worsening shortness of breath and mucopurulent sputum along with bilateral wheezing is suggestive of COPD exacerbation. Chest x-ray did not show any infiltrates evidence of CHF. The patient had a normal troponin and a proBNP of 429. Patient had a normal lactate. Will treat with steroids, Zithromax and bronchodilators. tested negative for influenza / RSV / COVID right chest wall pain-- cannot rule out a rib fracture. Chest x-ray did not show any acute findings. Vital Signs Vital signs: Vital Signs Temperature 37.1 C 05/08/24 18:36 Pulse Rate 83 05/08/24 18:36 Respiratory Rate 20 05/08/24 18:36 Blood Pressure 154/88 H 05/08/24 18:36 Pulse Oximetry 96 05/08/24 18:36 Oxygen Delivery Room Air 05/08/24 18:36 Temperature 37.1 C 05/08/24 18:36 Pulse Rate 82 05/08/24 19:41 Respiratory Rate 19 05/08/24 19:41 Blood Pressure 154/88 H 05/08/24 18:36 Pulse Oximetry 96 05/08/24 19:41 Oxygen Delivery Room Air 05/08/24 19:02 MDM - URI/Sore Throat MDM Narrative Medical decision making narrative: COPD exacerbation Differential Diagnosis Differential diagnosis: Likely viral infection, influenza and other ( pneumonia) Medical Records Attestation: I reviewed the patient's medical records. Lab Data Attestation: I reviewed the patient's lab results. 05/08/24 19:36 05/08/24 19:36 Labs: Lab Results 05/08/24 05/08/24 Range/Units 19:05 19:36 WBC 14.3 H (4.8-10.8) K/mm3 RBC 5.11 (4.20-5.40) M/mm3 Hgb 15.8 H (11.7-13.8) g/dL Hct 46.5 H (35.0-42.0) % MCV 91.0 (78.0-102.0) fL MCH 30.9 (27.0-31.0) pg MCHC 34.0 (32-36) g/dL RDW 12.2 (11.6-14.4) % Plt Count 720 H (150-420) K/mm3 MPV 8.2 L (9.2-11.8) fl Immature Gran % (Auto) 0.6 H (0.0-0.0) % Neut % (Auto) 63.8 (50.0-70.0) % Lymph % (Auto) 26.8 (18.0-42.0) % [place]ois % (Auto) 5.9 (2.0-11.0) % Eos % (Auto) 1.8 (1.0-6.0) % Baso % (Auto) 1.1 H (0.0-1.0) % Lymph # (Auto) 3.82 (1.10-4.50) K/mm3 [place] # (Auto) 0.84 (0.10-0.90) K/mm3 Eos # (Auto) 0.26 (0.02-0.50) K/mm3 Baso # (Auto) 0.15 H (0.00-0.10) K/mm3 Abs Immat Gran (auto) 0.09 H (0.00-0.00) K/mm3 Absolute Neuts (auto) 9.12 H (1.70-7.20) K/mm3 Absolute Nucleated RBC 0.00 (0.00-0.00) K/mm3 Nucleated RBC % 0.0 (0-0.0) % % Immature Plt Fraction 0.8 L (1.0-7.0) % Sodium 141 (136-145) mmol/L Potassium 3.1 L (3.5-5.1) mmol/L Chloride 98 (98-108) mmol/L Carbon Dioxide 31 (21-32) mmol/L Anion Gap 12 (4-12) mmol/L BUN 7 (7-18) mg/dL Creatinine 0.79 (0.55-1.02) mg/dL Estim Creat Clear Calc 56 ml/min Estimated GFR > 60 (59 - ) Glucose 123 H (70-99) mg/dL Calculated Osmolality 291 (285-295) mOsm/kg Lactic Acid 1.6 (0.4-2.0) mmol/L Calcium 9.7 (8.5-10.1) mg/dL Total Bilirubin 0.3 (0.00-1.00) mg/dL AST < 10 L (15-37) U/L ALT 18 (14-59) U/L Alkaline Phosphatase 74 (46-116) U/L Troponin I 30.6 (0.00-60.4) ng/L NT-Pro-B Natriuret Pep 429 H (0-125) pg/mL Total Protein 7.8 (6.4-8.2) g/dL Albumin 3.2 L (3.4-5.0) g/dL Influenza A (RT-PCR) Negative (Negative) Influenza B (RT-PCR) Negative (Negative) RSV (RT-PCR) Negative (Negative) SARS-CoV-2 RNA (RT-PCR) Negative (Negative) Discharge Plan Discharge Clinical Impression: COPD exacerbation, Acute chest wall pain Patient Disposition: Home, Self-Care Condition: Stable Instructions: Antibiotic Form, COPD (Chronic Obstructive Pulmonary Disease) (ED) Patient Language: Romanian Prescriptions: New azithromycin [Zithromax] 250 mg tablet 250 mg PO DAILY 4 Days Qty: 4 0RF Rx Instructions: start on day 2 of therapy prednisone 20 mg tablet 20 mg PO BID Qty: 10 0RF ipratropium-albuterol 0.5 mg-3 mg(2.5 mg base)/3 mL solution for nebulization 3 ml inhalation Q8H PRN (Reason: shortness of breath) Qty: 180 0RF No Action cetirizine [Zyrtec] 10 mg Tablet 10 mg PO DAILY metoprolol succinate 50 mg tablet extended release 24 hr 50 mg PO DAILY amlodipine-benazepril 5-10 mg capsule 1 cap PO DAILY pantoprazole 40 mg tablet,delayed release (DR/EC) 40 mg PO DAILY triamterene-hydrochlorothiazid 37.5-25 mg tablet 1 tablet PO DAILY montelukast 10 mg tablet 10 mg PO DAILY aspirin 325 mg tablet 325 mg PO DAILY eszopiclone [Lunesta] 2 mg tablet 2 mg PO QHS multivitamin Tablet 1 tablet PO DAILY simethicone [Gas-X Extra Strength] 125 mg capsule 125 mg PO DAILY PRN cholecalciferol (vitamin D3) 25 mcg (1,000 unit) capsule 25 mcg PO DAILY acetaminophen [Tylenol Arthritis Pain] 650 mg tablet extended release 650 mg PO Q12H vitamin E (dl, acetate) 180 mg (400 unit) capsule 180 mg PO DAILY Follow-up/Referrals: Carl,Bhaskar Shaw MD [Primary Care Provider] - Time of Disposition: 20:38
--- NOTE | 2024-05-08 19:05 | ECG_ITS ---
Test Date: 2024-05-08 19:20:12 Measurements Intervals [place] Rate: 77 P: 84 VA: 144 QRS: 82 QRSD: 120 T: 81 QT: 465 QTc: 526 Interpretive Statements SINUS RHYTHM WITH FREQUENT VENTRICULAR PREMATURE COMPLEXES INTRAVENTRICULAR CONDUCTION DELAY CANNOT R/O SEPTAL INFARCT, AGE INDETERMINATE BORDERLINE ST ABNORMALITY- INFERIOR LEADS BASELINE ARTIFACT- I, III, AVR, AVL, AVF, V1-V6 ABNORMAL ECG No previous ECG available for comparison Electronically Signed On 05-09-2024 08:26:21 MOBILE MECHANIC by Lam Fountain D.O.
[2024-05-08] MEDS: IPRATROPIUM 0.5 MG/ALBUTEROL SULFATE 2.5 MG AMPUL.NEB 3 ML INHALATION ×2 (19:41→20:51)
[2024-05-08] MEDS: methylPREDNISolone SOD SUCC 125 MG VIAL IM (19:42)
[2024-05-08 19:43] LABS: Basophils Absolute Auto 0.15 K/mm3 (0.00-0.10); Basophils Percent Auto 1.1 % (0.0-1.0); Eosinophils Absolute Auto 0.26 K/mm3 (0.02-0.50); Eosinophils Percent Auto 1.8 % (1.0-6.0); Hematocrit 46.5 % (35.0-42.0); Hemoglobin 15.8 g/dL (11.7-13.8); Immature Granulocyte Absolute 0.09 K/mm3 (0.00-0.00); Immature Granulocyte Percent A 0.6 % (0.0-0.0); Immature Platelet Fraction Pct 0.8 % (1.0-7.0); Lymphocytes Absolute Auto 3.82 K/mm3 (1.10-4.50); Lymphocytes Percent Auto 26.8 % (18.0-42.0); Mean Corpuscular Hemoglobin 30.9 pg (27.0-31.0); Mean Platelet Volume 8.2 fl (9.2-11.8); Monocytes Absolute Auto 0.84 K/mm3 (0.10-0.90); Monocytes Percent Auto 5.9 % (2.0-11.0); Neutrophils Absolute Auto 9.12 K/mm3 (1.70-7.20); Neutrophils Percent Auto 63.8 % (50.0-70.0); Platelet Count Result 720 K/mm3 (150-420); Red Blood Count 5.11 M/mm3 (4.20-5.40); Red Cell Distribution Width 12.2 % (11.6-14.4); White Blood Count 14.3 K/mm3 (4.8-10.8)
--- NOTE | 2024-05-08 19:58 | PC.NURSE ---
ERP aware of BP. No new orders.
[2024-05-08 20:00] LABS: Lactic Acid Reflex 1.6 mmol/L (0.4-2.0)
[2024-05-08 20:00] LABS: SARS-CoV-2 RNA PCR Negative (Negative)
[2024-05-08 20:03] LABS: Influenza A QL RT-PCR Negative (Negative); Influenza B QL RT-PCR Negative (Negative); RSV RNA, RT-PCR Negative (Negative)
[2024-05-08 20:10] LABS: Alanine Aminotransferase 18 U/L (14-59); Albumin Level 3.2 g/dL (3.4-5.0); Alkaline Phosphatase 74 U/L (46-116); Anion Gap 12 mmol/L (4-12); Aspartate Amino Transferase < 10 U/L (15-37); Bilirubin,Total 0.3 mg/dL (0.00-1.00); Blood Urea Nitrogen 7 mg/dL (7-18); Calcium 9.7 mg/dL (8.5-10.1); Carbon Dioxide 31 mmol/L (21-32); Chloride 98 mmol/L (98-108); Estimated CRCL calculation 56 ml/min; Estimated Glomerular Filt Rate > 60; Glucose 123 mg/dL (70-99); NT Pro B Type Natriuretic Pept 429 pg/mL (0-125); Osmolality Calculated 291 mOsm/kg (285-295); Potassium 3.1 mmol/L (3.5-5.1); Sodium 141 mmol/L (136-145); Total Protein 7.8 g/dL (6.4-8.2); Troponin I 30.6 ng/L (0.00-60.4)
[2024-05-08] MEDS: AZITHROMYCIN 250 MG TABLET 500 MG PO (21:09)
--- NOTE | 2024-05-08 21:20 | PC.NURSE ---
ERP aware of pt's vitals. No new orders.
== END 2024-05-08 21:32 | disposition home or self-care (01) ==
PROVIDERS: Emergency Provider Internal Medicine Critical Care Medicine; PCP Internal Medicine
DX: J44.1 Chronic obstructive pulmonary disease with (acute) exacerbation (principal); I48.91 Unspecified atrial fibrillation; I10 Essential (primary) hypertension; F17.210 Nicotine dependence, cigarettes, uncomplicated; Z20.822 Contact with and (suspected) exposure to COVID-19
CPT/HCPCS: 36415; 71045; 80053; 83605; 83880; 84484; 85025; 85055; 87637; 93005; 96372; 99284; A9270; J2919

== ENCOUNTER 2024-05-13 07:49 | Outpatient (CLI) | payer MEDICARE, SELFPAY ==
--- OUTSIDE RECORDS SUMMARY | 2024-05-13 07:57 | XMS_ITS | Encounter Summary ---
Author Organization [facility] Address [address] [place] [address] Phone Care Team Providers Care Radio News Writer Name Role Phone Bhaskar Henry MD Primary Care Provider [phone] Juan R Milton MD Unavailable [phone] Encounter Details Date Type Department Care Team (Late st Contact Info) Description 10/18/2022 Telephone [facility] Referral Management Services [address] [place], [place] [id number] Bhaskar Henry MD [address] [address] Social History Tobacco Use Types [...] requested by Centralized Referral Management. [place] [facility] OnCall - Centralized Referral Management 10/18/2022, 10:08 AM CDT documented in this encounter Plan of Treatment Upcoming Encounters Date Type Department Care Team (Late st Contact Info) Description 05/18/2024 2:45 PM CASH CONTROLLER Office Visit [facility] Medical [facility] - Internal Medicine - [place] [address] [place] [address] Bhaskar Henry MD [address] [place] [address] 05/21/2024 2:45 PM CASH CONTROLLER Office Visit [facility] - Neurology - [place] [address] [place] [phone] Juan R Milton MD [address] [place] [address] documented as of this encounter Visit Diagnoses Not on filedocumented in this encounter Additional Health Concerns Infection Onset Date Last Indicated Resolved Time Respiratory Rule-Out 05/08/2024 05/08/2024 025 7:48 AM CASH CONTROLLER Assessment Noted Time PHQ-9 Depression Total Score: 3 10/16/19 23 3:00 PM CDT documented as of this encounter Care Teams Radio News Writer Relationship Specialty Start Date End Date Bhaskar Henry MD [address] [place] [address] PCP - General Internal Medicine 09/01/15 Juan R Milton MD [address] [place] [address] Consulting Physician Neurology 01/20/23 documented as of this encounter
--- OUTSIDE RECORDS SUMMARY | 2024-05-13 07:57 | XMS_ITS | Encounter Summary ---
Author Organization [facility] Address [address] [place] [address] Phone Care Team Providers Care Cupola Worker Name Role Phone Bhaskar Henry MD Primary Care Provider Juan R Milton MD Unavailable [phone] Reason for Visit * Reason Comments Medication Refill Encounter Details Date Type Department Care Team (Late st Contact Info) Description 01/14/[address] [facility] - Neurology - [place] [address] [place] [address] Juan R Milton MD [address] [place] [phone] Medication Refill Social History Tobacco Use Types [...] Dept 10/15/22 Office Visit Bhaskar Henry MD [facility] 10/01/22 Office Visit Juan R Milton MD [facility] Neurology [facility] Hayley Joyner Showing recent visits within past 182 days and meeting all other requirements Future Appointments Date Type Provider Dept 01/21/23 Appointment Bhaskar Henry MD [facility] 03/06/23 Appointment Juan R Milton MD [facility] Neurology [facility] Hayley Joyner Showing future appointments within next 90 days and meeting all other requirements documented in this encounter Plan of Treatment Upcoming Encounters Date Type Department Care Team (Late st Contact Info) Description 05/18/2024 2:45 PM ROBOT DESIGNER Office Visit [facility] Medical [facility] - Internal Medicine - [place] [address] [place] [phone] Bhaskar Henry MD [address] [place] [address] 05/21/2024 2:45 PM ROBOT DESIGNER Office Visit [facility] - Neurology - [place] [address] [facility] [place] [phone] Juan R Milton MD [address] [place] [address] documented as of this encounter Visit Diagnoses Not on filedocumented in this encounter Additional Health Concerns Infection Onset Date Last Indicated Resolved Time Respiratory Rule-Out 05/08/2024 05/08/2024 025 7:48 AM ROBOT DESIGNER Assessment Noted Time PHQ-9 Depression Total Score: 3 10/16/19 23 3:00 PM CDT documented as of this encounter Care Teams Cupola Worker Relationship Specialty Start Date End Date Bhaskar Henry MD [address] [place] [address] PCP - General Internal Medicine 09/01/15 Juan R Milton MD [address] [facility] [place] [address] Consulting Physician Neurology 01/20/23 documented as of this encounter
--- OUTSIDE RECORDS SUMMARY | 2024-05-13 07:57 | XMS_ITS | Clinical Summary ---
Author Organization [facility] Address [facility] [place] [address] Care Team Providers Care In Flight Crew Member Name Role Phone Unavailable Primary Care Provider Unavailabl e Social History Tobacco Use Types Packs/Day Years Used Date Smoking Tobacco: Never Assessed Comments Unknown Sex and Gender Information Value Date Recorded Sex Assigned at Not on file Legal Sex Female 5:46 PM CEMENT SPRAYER HELPER Gender Identity Not on file Sexual Orientation [...]
--- OUTSIDE RECORDS SUMMARY | 2024-05-13 07:57 | XMS_ITS | Encounter Summary ---
Author Organization [facility] Address [address] [place] [address] Phone Care Team Providers Care Visual Coordinator Name Role Phone Bhaskar Henry MD Primary Care Provider [phone] Juan R Milton MD Unavailable [phone] Reason for Visit * Reason Comments Medication Refill Encounter Details Date Type Department Care Team (Late Contact Info) Description 04/06/2023 Refill [facility] - Internal Medicine - [place] [address] [place] [address] Bhaskar Henry MD [address] [place] [address] Medication Refill Social History Tobacco [...] (Late Contact Info) Description 05/18/2024 2:45 PM COLLAR SEWER Office Visit [facility] Medical Group - Internal Medicine [facility] [address] [place] [phone] Bhaskar Henry MD [address] [place] [address] 05/21/2024 2:45 PM COLLAR SEWER Office Visit [facility] - Neurology [facility] [address] [place] [phone] Juan R Milton MD [address] [place] [phone] documented as of this encounter Visit Diagnoses Not on filedocumented in this encounter Additional Health Concerns Infection Onset Date Last Indicated Resolved Time Respiratory Rule-Out 05/08/2024 05/08/2024 025 7:48 AM COLLAR SEWER Assessment Noted Time PHQ-9 Depression Total Score: 3 10/16/19 23 3:00 PM CDT documented as of this encounter Care Teams Visual Coordinator Relationship Specialty Start Date End Date Bhaskar Henry MD [address] [place] [address] PCP - General Internal Medicine 09/01/15 Juan R Milton MD [address] [place] [address] Consulting Physician Neurology 01/20/23 documented as of this encounter
--- OUTSIDE RECORDS SUMMARY | 2024-05-13 07:57 | XMS_ITS | Clinical Summary ---
Author Organization [facility] Address [address] [facility] [address] [place] [address] Phone Care Team Providers Care Concrete Pouring Supervisor Name Role Phone Bhaskar Henry MD Primary Care Provider Juan R Milton MD Unavailable Allergies Active Allergy Reactions Criticality Noted Date [...] Active fluticasone (FLONASE) 50 MCG/ACT Suspension 1 [place] by Nasal route in the morning and [...] intermittent asthma without complication 04/18/19 21 01/21/2023 Immunizations Immunization Administration Dates Next Due Pneumococcal [...] drink = 0.6 oz pur e alcohol) [facility] Utilities Answer Date Recorded In the past 12 months has e electric, gas, oil, or water company threatened to shut off services in your [...] week 07/31/2023 How often do you attend chur ch or advent services? Never 07/31/2023 Do you belong to any clubs o r organizations such as buddhism groups, unions, fraternal or athletic groups, or [...] Total Score - Questions 1-9 0 08/2023 [facility] - Occupational Stress Questionnaire Answer Date [...] place to sleep or slept in a care home (including now)? No 07/31/2023 Sexually Active Control Partners Comments Not Currently Comments No Sex and Gender Information Value Date Recorded Sex Assigned at Not on file Legal Sex Female 8:37 PM CDT Gender Identity Not on file Sexual Orientation Not on file Last Filed Vital Signs Vital Sign Reading Time Taken Comments Blood Pressure 126/70 02/10/2024 2:42 PM PARKING CONTROL OFFICER Pulse 78 02/10/2024 2:42 PM PARKING CONTROL OFFICER Temperature 37.1 C (98.7 F) 02/10/2024 2:42 PM PARKING CONTROL OFFICER Respiratory Rate 12 10/30/2023 3:46 PM CDT Oxygen Saturation 97% 02/10/2024 2:42 PM PARKING CONTROL OFFICER Inhaled Oxygen Concentration - - Weight 70.3 kg (155 lb) 02/10/2024 2:42 PM PARKING CONTROL OFFICER Height 160 cm (5' 3 ) 02/10/2024 2:42 PM PARKING CONTROL OFFICER Body Mass Index 27.46 02/10/2024 2:42 PM PARKING CONTROL OFFICER Plan of Treatment Upcoming Encounters Date Type Department Care Team (Late st Contact Info) Description 05/18/2024 2:45 PM PARKING CONTROL OFFICER Office Visit [facility] - Internal Medicine - [place] [address] [place] [id number] Bhaskar Henry MD [address] [place] [address] 05/21/2024 2:45 PM PARKING CONTROL OFFICER [facility] - Neurology - [place] [address] [place] [phone] Juan R Milton MD [address] [place] [phone] Health Maintenance Due Date Last Done Comments [...] Procedure Name Priority Date/Time Associated Diagnosis Comments COMPLETE BLOOD COUNT (CBC) WITH DIFF 05/08/2024 12:00 AM PARKING CONTROL OFFICER LACTIC ACID (LACTATE) 05/08/2024 12:00 AM PARKING CONTROL OFFICER B-TYPE NATRIURETIC PEPTIDE (BNP) 05/08/2024 12:00 AM PARKING CONTROL OFFICER TROPONIN I (TRP I) 05/08/2024 12 :00 AM PARKING CONTROL OFFICER CMP (COMPREHENSIVE METABOLIC PANEL) 05/08/2024 12:00 AM PARKING CONTROL OFFICER XR - CHEST 05/08/2024 12:00 AM PARKING CONTROL OFFICER RESPIRATORY SYNCYTIAL VIRUS BY MOLECULAR 05/08/2024 12:00 AM PARKING CONTROL OFFICER INFLUENZA TEST 05/08/2024 12:00 AM PARKING CONTROL OFFICER SARS-COV-2 BY MOLECULAR 05/08/2024 12:00 AM PARKING CONTROL OFFICER CT CHEST SCREENING WO Routine 09/30/2023 12:00 AM CDT Smoking greater than 20 pack years ALCIDES BONE DENSITOMETRY AXIAL SKELETON Routine 09/30/2023 12:00 AM CDT Asymptomatic menopausal state ALCIDES SCREENING BILATERAL DIGITAL W CAD W KIESHA Routine 06/18/2022 1:57 PM CDT Breast cancer screening by mammogram from Last 3 Months or Most Recently Relevant to Health Maintenance Results * RESPIRATORY SYNCYTIAL VIRUS BY MOLECULAR (05/08/2024 12:00 AM PARKING CONTROL OFFICER) 05/08/2024 us Provider Scan MICROBIOLOGY - GENERAL ORDERABLE S Final Result Performing Organization Address [facility] de Phone Number SCAN * INFLUENZA TEST (05/08/2024 12:00 AM PARKING CONTROL OFFICER) 05/08/2024 us Provider Scan MICROBIOLOGY - GENERAL ORDERABLE S Final Result Performing Organization Address [facility] de Phone Number SCAN * XR - CHEST (05/08/2024 12:00 AM PARKING CONTROL OFFICER) 05/08/2024 us Provider Scan IMG DIAGNOSTIC ORDERABLES Final Result Performing Organization Address [facility] de Phone Number SCAN * SARS-COV-2 BY MOLECULAR (05/08/2024 12:00 AM PARKING CONTROL OFFICER) 05/08/2024 us Provider Scan MICROBIOLOGY - GENERAL ORDERABLE S Final Result Performing Organization Address [facility] de Phone Number SCAN * TROPONIN I (TRP I) (05/08/2024 12:00 AM PARKING CONTROL OFFICER) 05/08/2024 us Provider Scan CHEMISTRY ORDERABLES Final Resul t Performing Organization Address City/[facility] de Phone Number SCAN * LACTIC ACID (LACTATE) (05/08/2024 12:00 AM PARKING CONTROL OFFICER) 05/08/2024 us Provider Scan CHEMISTRY ORDERABLES Final Resul t Performing Organization Address [facility] de Phone Number SCAN * CMP (COMPREHENSIVE METABOLIC PANEL) (05/08/2024 12:00 AM PARKING CONTROL OFFICER) 05/08/2024 us Provider Scan CHEMISTRY ORDERABLES Final Resul t Performing Organization Address [facility] de Phone Number SCAN * COMPLETE BLOOD COUNT (CBC) WITH DIFF (05/08/2024 12:00 AM PARKING CONTROL OFFICER) 05/08/2024 us Provider Scan HEMATOLOGY ORDERABLES Final Resu lt Performing Organization Address [facility] de Phone Number SCAN * B-TYPE NATRIURETIC PEPTIDE (BNP) (05/08/2024 12:00 AM PARKING CONTROL OFFICER) 05/08/2024 Provider Scan CHEMISTRY ORDERABLES Final Resul t Performing Organization Address [facility] de Phone Number SCAN * CT CHEST SCREENING WO (09/30/2023 12:00 AM CDT) Anatomical Region Laterality Modality Chest N/A Other 09/30/2023 Result [facility] Bhaskar Henry MD IMG CT ORDERABLES Final Res ult * LACIDES BONE DENSITOMETRY AXIAL SKELETON (09/30/2023 12:00 AM CDT) Anatomical Region Laterality Modality BODY N/A Other 09/30/2023 Result [facility] Bhaskar Henry MD IMG DEXA ORDERABLES Final [...] to exams dated: 05/16/2017, 09/21/2015, and 01/06/2014 [facility]. BREAST TISSUE:The tissue of both breasts is [...] next screening exam. Electronically signed by: Leatha funes/fabiola:06/18/2022 14:27:49 Rental Sales Associate(s): RT Moreno(Damon)(M), [facility] letter sent: Normal Exam Reading location: [facility] BI-RADS: 1 Negative Procedure Note Leatha De [...] to exams dated: 05/16/2017, 09/21/2015, and 01/06/2014 [facility]. BREAST TISSUE:The tissue of both breasts is [...] signed by: Leatha De La Fuente M.D. ab/penrad:06/18/2022 14:27:49 Rental Sales Associate(s): RT Moreno(R)(M), [facility] letter sent: Normal Exam Reading location: [facility] BI-RADS: 1 Negative Bhaskar Henry MD IMG MAMMO ORDERABLES Final Result from Last 3 Months or Most Recently Relevant to Health Maintenance [facility] Care Teams Concrete Pouring Supervisor Relationship Specialty Start Date End Date Bhaskar Henry MD [address] [facility] [place] [address] PCP - General Internal Medicine 09/01/15 Juan R Milton MD [address] [place] [address] Consulting Physician Neurology 01/20/23
--- OUTSIDE RECORDS SUMMARY | 2024-05-13 07:58 | XMS_ITS | Patient Health Summary ---
Author Organization [facility] Address [address] [place] [address] Care Team Providers Care Roll Reclaimer Name Role Phone Bhaskar Henry MD Primary Care Provider [phone] Note from [facility],non-owned Affiliates and Associated Physician Practices is amultiple site organization consisting of ambulatory clinics and hospital sitesin [place], [place], [place] and [place]. This disclosure is being madepursuant to the Care Everywhere program and may not contain all information available regarding this patient. Last updated 17.[facility] Allergies * Chicken-Derived Products(Other) * Codeine(Urticaria,Other) -Medium [...] 325 mg by mouth once daily * Xwntamq-Svummbbvf-Rlkwkrc D 500-250-200 MG-MG-UNIT TABS Take 1 tablet by mouth once daily * nystatin (MYCOSTATIN) 824977 UNIT/ML suspension(Started 08/04/2019) Swish and swallow 5 [...] 73 01/29/2020 11:46 AM CDT Temperature 37.2 C (98.9 F) 01/29/2020 11:46 AM CDT Respiratory Rate 18 01/29/2020 11:46 AM CDT Oxygen Saturation 92% 01/29/2020 11:46 AM CDT Inhaled Oxygen Concentration - - Weight 81.6 kg (180 lb) 02/22/2020 2:47 PM TAIL WORKER Height 165.1 cm (5' 5 ) 02/22/2020 2:47 PM TAIL WORKER Body Mass Index 29.95 02/22/2020 2:47 PM TAIL WORKER Procedures * CARDIAC RHYTHM STRIP ORDER(Performed 02/01/2020) [...] - 106 mg/dL 01/29/2020 12:32 PM CDT [facility] Specimen Type Arterial/C apillary 01/29/2020 12:32 PM CDT [facility] Blood BLOOD SPECIMEN / Unknown 01/29/2020 11:45 AM CDT 01/29/2020 12:32 PM CDT Nishant Taylor MD LAB - POINT OF CARE ORDERABLES [facility] [address] [place] [address] * TROPONIN I (01/29/2020 4:34 AM CDT) Only the most recent of3 resultswithin the time period is included. Pathologist [facility] Troponin I <0.010 <0.038 ng/mL 01/29/2020 5:39 AM CDT [facility] Blood BLOOD SPECIMEN / Unknown Venipuncture / Unknown 01/29/2020 4:34 AM CDT 01/29/2020 4:51 AM CDT Dora Mcwilliams CRAYON SORTING MACHINE FEEDER-REIMBURSEMENT MANAGER LAB - CHEMISTRY ORDERABLES [facility] [address] [place] [address] * (ABNORMAL) CBC W AUTO DIFFERENTIAL (01/29/2020 4:33 AM CDT) [facility] WBC 9.9 4.4 - 10.7 x10E9/L 01/29/2020 5:05 AM CDT [facility] WBC Corrected 01/29/2020 5:05 AM CDT [facility] RBC 4.27 3.80 - 5.20 x10E12/L 01/29/2020 5:05 AM CDT [facility] Hemoglobin 13.7 12.0 - 15.6 gm/dL 01/29/2020 5:05 AM CDT [facility] Hematocrit 39.5 35.9 - 45.5 % 01/29/2020 5:05 AM CDT [facility] MCV 92.5 80.7 - 98.3 fl 01/29/2020 5:05 AM CDT [facility] MCH 32.1 26.7 - 34.0 pg 01/29/2020 5:05 AM CDT [facility] MCHC 34.7 30.8 - 35.9 gm/dL 01/29/2020 5:05 AM CDT [facility] Platelet Count 417(H) 153 - 416 x10E9/L 01/29/2020 5:05 AM CDT [facility] RDW-CV 12.8 12.1 - 14.9 % 01/29/2020 5:05 AM CDT [facility] MPV 8.8(L) 9.4 - 12.9 fl 01/29/2020 5:05 AM CDT [facility] Neutrophils % 58.3 44.0 - 73.0 % 01/29/2020 5:05 AM CDT [facility] Lymphocytes % 30.1 20.0 - 43.0 % 01/29/2020 5:05 AM CDT [facility] Monocytes % 7.8 5.0 - 13.0 % 01/29/2020 5:05 AM CDT [facility] Eosinophils % 2.1 0.0 - 6.0 % 01/29/2020 5:05 AM CDT [facility] Basophils % 1.2 0.0 - 2.0 % 01/29/2020 5:05 AM CDT [facility] Immature Granulocytes 0.5 0 - 1 % 01/29/2020 5:05 AM CDT [facility] Neutrophil Absolute 5.78 2.01 - 7.14 x10E9/L 01/29/2020 5:05 AM CDT [facility] Lymphocytes Absolute 2.98 1.07 - 3.94 x10E9/L 01/29/2020 5:05 AM CDT [facility] Monocytes Absolute 0.77 0.26 - 1.07 x10E9/L 01/29/2020 5:05 AM CDT [facility] Eosinophils Absolute 0.21 0 - 0.47 x10E9/L 01/29/2020 5:05 AM CDT [facility] Basophils Absolute 0.12(H) 0 - 0.08 x10E9/L 01/29/2020 5:05 AM CDT [facility] Immature Granulocytes Absolute 0.05 0.00 - 0.06 x10E9/L 01/29/2020 5:05 AM CDT [facility] nRBC Auto 0 /100 WBC 01/29/2020 5:05 AM T [facility] Blood BLOOD SPECIMEN / Unknown Venipuncture / Unknown 01/29/2020 4:33 AM CDT 01/29/2020 4:51 AM CDT Dora Mcwilliams CRAYON SORTING MACHINE FEEDER-REIMBURSEMENT MANAGER LAB - HEMATOLOG Y ORDERABLES [facility] [address] [place] [address] * (ABNORMAL) LIPID PROFILE (01/29/2020 4:33 AM CDT) [facility] Cholesterol 201(H) <200 mg/dL 01/29/2020 5:40 AM CDT [facility] Triglycerides 232(H) <150 mg/dL 01/29/2020 5:40 AM CDT [facility] HDL Cholesterol 28(L) >40 mg/dL 0 5:40 AM CDT [facility] LDL Calculated 127 <130 mg/dL 01/29/2020 5:40 AM CDT [facility] VLDL Calculated 46(H) <=30 mg/dL 0 5:40 AM CDT [facility] Chol HDL Ratio 7.2(H) <4.5 01/29/2020 5:40 AM CDT [facility] LDL/HDL Ratio 4.5 <5.0 01/29/2020 5:40 AM CDT [facility] Blood BLOOD SPECIMEN / Unknown Venipuncture / Unknown 01/29/2020 4:33 AM CDT 01/29/2020 4:51 AM CDT Dora Mcwilliams CRAYON SORTING MACHINE FEEDER-REIMBURSEMENT MANAGER LAB - CHEMISTRY ORDERABLES [facility] [address] [place] [id number] * MRI BRAIN WWO CONTRAST (01/28/2020 6:44 [...] - POCT INTERFACED (01/28/2020 6:24 PM CDT) Pathologist [facility] Creatinine POCT 0.36(L) 0.70 - 1.20 mg/dL 01/28/2020 6:36 PM CDT [facility] Blood BLOOD SPECIMEN / Unknown 01/28/2020 6:24 PM CDT 01/28/2020 6:36 PM CDT Nishant Taylor MD LAB - POINT OF CARE ORDERABLES [facility] [address] [place] [address] * URINE MICROSCOPIC ONLY REFLEX TO CULTURE (01/28/2020 2:44 PM CDT) Reflex Status Culture not indicated 01/28/2020 3:08 PM CDT [facility] RBC UA 0-2 None Seen, 0-2, 3-5 # /hpf 01/28/2020 3:08 PM CDT [facility] WBC UA 0-5 None Seen, 0-5 # /hpf 01/28/2020 3:08 PM CDT [facility] Bacteria UA None Seen None Seen 01/28/2020 3:08 PM CDT [facility] Squamous Epithelial Cells None Seen None Seen, 0-2, 3-5 /hpf 01/28/2020 3:08 PM CDT [facility] Urine URINE SPECIMEN OBTAINED BY CLEAN CATCH PROCEDURE / Unknown Collection / Unknown 01/28/2020 2:44 PM CDT 01/28/2020 3:00 PM CDT Narrative [facility] - 01/28/2020 3:08 PM CDT Dora Mcwilliams CRAYON SORTING MACHINE FEEDER-REIMBURSEMENT MANAGER LAB - URINALYSI S ORDERABLES [facility] [address] [place] [address] * (ABNORMAL) URINALYSIS REFLEX MICROSCOPIC REFLEX CULTURE (01/28/2020 2:44 PM CDT) Color UA Straw Straw, Yellow 01/28/2020 3:07 PM CDT [facility] Clarity UA Clear Clear 01/28/2020 3:07 PM CDT [facility] Glucose UA Negative Negative 01/28/2020 3:07 PM CDT [facility] Bilirubin UA Negative Negative 01/28/2020 3:07 PM CDT [facility] Ketone UA Negative Negative 01/28/2020 3:07 PM CDT [facility] Specific [place] UA 1.008 1.005 - 1.030 01/28/2020 3:07 PM CDT [facility] Blood UA 1+(A) Negative 01/28/2020 3:07 PM CDT [facility] pH UA 7.0 5.0 - 8.0 pH 01/28/2020 3:07 PM CDT [facility] Protein UA Negative Negative 01/28/2020 3:07 PM CDT [facility] Urobilinogen UA Negative Negative mg/dL 01/28/2020 3:07 PM CDT [facility] Nitrite UA Negative Negative 01/28/2020 3:07 PM CDT [facility] Leukocyte UA Negative Negative 01/28/2020 3:07 PM CDT [facility] Urine Microscopy Urine microscopy to follow 01/28/2020 3:07 PM CDT [facility] Reflex Status Culture not indicated 01/28/2020 3:07 PM CDT [facility] Urine URINE SPECIMEN OBTAINED BY CLEAN CATCH PROCEDURE / Unknown Collection / Unknown 01/28/2020 2:44 PM CDT 01/28/2020 3:00 PM CDT Narrative [facility] - 01/28/2020 3:07 PM CDT Dora Mcwilliams APRN-REIMBURSEMENT MANAGER LAB - URINALYSI S ORDERABLES [facility] [address] [place] [address] * HEMOGLOBIN A1C (01/28/2020 2:44 PM CDT) Hemoglobin A1c 5.4 4.2 - 5.6 % 01/28/2020 3:10 PM CDT [facility] Estimated Average Glucose 108 mg/dL 01/28/2020 3:10 PM CDT [facility] Blood BLOOD SPECIMEN / Unknown Venipuncture / Unknown 01/28/2020 2:44 PM CDT 01/28/2020 2:58 PM CDT Narrative [facility] - 01/28/2020 3:10 PM CDT The following cutoff levels are recommended by [place] [employer]. A1c > 6.5% : considered as diabetes if two separate tests >6.5% or in an appropriate clinical setting. A1c 5.7% - 6.4% : considered as prediabetes (suggest increased risk for diabetes and cardiovascular disease) Control target level: Should be individualized. < 7 for general (non-) , < 8% less stringent goal, < 6.5 more stringent goal. Hemoglobin A1c measurements are used as an aid in the diagnosis of diabetic mellitus, as an aid to identify patients who may be at the risk for developing diabetic mellitus, and for the monitoring long-term blood glucose control in individuals with diabetes mellitus. This test should not replace glucose testing for patients with Type 1 diabetes, pediatric patients, or women. Falsely low HbA1c results may be observed in patients with clinical conditions that shorten erythrocyte life span or decrease mean erythrocyte age such as the presence of unstable hemoglobin variants, elevated hemoglobin F level or other causes of hemolytic anemia . HbA1c may not accurately reflect glycemic control when clinical conditions that affect erythrocyte survival are present. Severe Iron deficiency anemia may yield falsely high results. Hemoglobin A1c assay should not be used to diagnose or monitor diabetes in patients with malignancy, recent blood transfusion, chronic kidney or liver disease. This method may yield falsely low results when hemoglobin (HbF) exceeds 5% in the specimen. Nishant Taylor MD LAB - CHEMISTRY [facility] Organization Address City/State/ZIP Co de Phone Number [facility] [address] [place] [address] * CT ANGIO BRAIN NECK [...] Nishant Taylor MD CT ORDERABLES Care Teams Roll Reclaimer Relationship Specialty Start Date End Date Bhaskar Henry MD [address] [place] [address] PCP - General Internal Medicine 01/28/20
--- OUTSIDE RECORDS SUMMARY | 2024-05-13 07:58 | XMS_ITS | Clinical Summary ---
Author Organization [facility] Address [address] [place] [address] Care Team Providers Care Home Care Manager Rn Name Role Phone Bhaskar Henry MD Primary Care Provider [phone] Source Comments [facility],non-owned Affiliates and Associated Physician Practices is amultiple site organization consisting of ambulatory clinics and hospital sitesin [place], [place], [place] and [place]. This disclosure is being madepursuant to the Care Everywhere program and may not contain all information available regarding this patient. Last updated 17.[facility] Allergies Active Allergy Reactions Criticality Noted Date [...] 325 mg by mouth once daily Active Xaztqbr-Nldwuktbo-Mu tamin D 500-250-200 MG-MG-UNIT TABS Take 1 tablet by mouth once daily Active nystatin (MYCOSTATIN) 281889 UNIT/ML suspension Swish and swallow 5 mL [...] 81.6 kg (180 lb) 02/22/2020 2:47 PM LOOM SETTER Height 165.1 cm (5' 5 ) 02/22/2020 2:47 PM LOOM SETTER Body Mass Index 29.95 02/22/2020 2:47 PM LOOM SETTER Plan of Treatment Health Maintenance Due Date [...] MD LAB - POINT OF CARE ORDERABLES [facility] [address] [place] [address] from Last 3 Months or Most Recently Relevant to Health Maintenance Advance Directives * Full Code (Latest Code Status on File) Date Activated Date Inactivated Comments 01/28/2020 2:23 PM 01/29/2020 1:46 PM Care Teams Home Care Manager Rn Relationship Specialty Start Date End Date Bhaskar Henry MD [address] [place] [address] PCP - General Internal Medicine 01/28/20
--- OUTSIDE RECORDS SUMMARY | 2024-05-13 07:58 | XMS_ITS | Referral Summary ---
Author Organization [facility] Address [address] [place] [address] Care Team Providers Care Control Chemist Name Role Phone Bhaskar Henry MD Primary Care Provider [phone] Source Comments [facility],non-owned Affiliates and Associated Physician Practices is amultiple site organization consisting of ambulatory clinics and hospital sitesin [place], [place], [place] and [place]. This disclosure is being madepursuant to the Care Everywhere program and may not contain all information available regarding this patient. Last updated 17.[facility] [employer] Allergies Active Allergy Reactions Criticality Noted Date [...] 325 mg by mouth once daily Active Nflapkm-Yxzmemvww-Kc tamin D 500-250-200 MG-MG-UNIT TABS Take 1 tablet by mouth once daily Active nystatin (MYCOSTATIN) 741540 UNIT/ML suspension Swish and swallow 5 mL [...] 81.6 kg (180 lb) 02/22/2020 2:47 PM EXERCISE PHYSIOLOGIST Height 165.1 cm (5' 5 ) 02/22/2020 2:47 PM EXERCISE PHYSIOLOGIST Body Mass Index 29.95 02/22/2020 2:47 PM EXERCISE PHYSIOLOGIST Functional Status Functional Status Response Date of [...] POINT OF CARE (01/29/2020 8:05 AM CDT) Pathologist [facility] Glucose WB/POC 107(H) 70 - 106 mg/dL 01/29/2020 12:32 PM CDT [facility] Specimen Type Arterial/C apillary 01/29/2020 12:32 PM CDT [facility] Blood BLOOD SPECIMEN / Unknown 01/29/2020 8:05 AM CDT 01/29/2020 12:32 PM CDT Nishant Taylor MD LAB - POINT OF CARE ORDERABLES [facility] [address] [place] [address] from Last 3 Months or Most Recently Relevant to Health Maintenance Advance Directives * Full Code (Latest Code Status on File) Date Activated Date Inactivated Comments 01/28/2020 2:23 PM 01/29/2020 1:46 PM Care Teams Control Chemist Relationship Specialty Start Date End Date Bhaskar Henry MD [address] [place] [address] PCP - General Internal Medicine 01/28/20
[2024-05-13 08:08] LABS: Basophils Absolute Auto 0.06 K/mm3 (0.00-0.10); Basophils Percent Auto 0.5 % (0.0-1.0); Eosinophils Absolute Auto 0.02 K/mm3 (0.02-0.50); Eosinophils Percent Auto 0.2 % (1.0-6.0); Hematocrit 44.9 % (35.0-42.0); Hemoglobin 15.6 g/dL (11.7-13.8); Immature Granulocyte Absolute 0.16 K/mm3 (0.00-0.00); Immature Granulocyte Percent A 1.4 % (0.0-0.0); Immature Platelet Fraction Pct 0.9 % (1.0-7.0); Lymphocytes Absolute Auto 2.43 K/mm3 (1.10-4.50); Lymphocytes Percent Auto 21.8 % (18.0-42.0); Mean Corpuscular HGB Conc 34.7 g/dL (32-36); Mean Corpuscular Hemoglobin 31.1 pg (27.0-31.0); Mean Corpuscular Volume 89.6 fL (78.0-102.0); Mean Platelet Volume 8.3 fl (9.2-11.8); Monocytes Absolute Auto 1.24 K/mm3 (0.10-0.90); Monocytes Percent Auto 11.1 % (2.0-11.0); Neutrophils Absolute Auto 7.24 K/mm3 (1.70-7.20); Platelet Count Result 666 K/mm3 (150-420); Red Blood Count 5.01 M/mm3 (4.20-5.40); Red Cell Distribution Width 12.4 % (11.6-14.4); White Blood Count 11.2 K/mm3 (4.8-10.8)
[2024-05-13 08:21] LABS: Hemoglobin A1C 6.7 % (<5.7)
[2024-05-13 09:48] LABS: Alanine Aminotransferase 20 U/L (14-59); Albumin Level 3.2 g/dL (3.4-5.0); Alkaline Phosphatase 74 U/L (46-116); Anion Gap 10 mmol/L (4-12); Aspartate Amino Transferase 10 U/L (15-37); Bilirubin,Total 0.3 mg/dL (0.00-1.00); Blood Urea Nitrogen 7 mg/dL (7-18); Calcium 9.3 mg/dL (8.5-10.1); Carbon Dioxide 31 mmol/L (21-32); Chloride 100 mmol/L (98-108); Cholesterol 263 mg/dL (0-200); Estimated Glomerular Filt Rate > 60; Free T4 Free Thyroxine 0.99 ng/dL (0.76-1.46); Glucose 120 mg/dL (70-99); HDL Direct 46 mg/dL (40-60); LDL Cholesterol Calculated 153 mg/dL (<130); Osmolality Calculated 291 mOsm/kg (285-295); Potassium 3.4 mmol/L (3.5-5.1); Sodium 141 mmol/L (136-145); Thyroid Stimulating Hormone 1.65 uIU/mL (0.36-3.74); Total Protein 7.6 g/dL (6.4-8.2); Triglycerides 319 mg/dL (0-150)
== END 2024-05-13 07:50 | disposition home or self-care (01) ==
LOC: CHSLAB 07:54
PROVIDERS: PCP Internal Medicine; Visit Provider Internal Medicine
DX: R73.9 Hyperglycemia, unspecified (principal); F51.01 Primary insomnia; R63.4 Abnormal weight loss; E78.2 Mixed hyperlipidemia
CPT/HCPCS: 36415; 80053; 80061; 83036; 84439; 84443; 85025; 85055

== ENCOUNTER 2024-08-28 09:59 | Outpatient (CLI) | payer MEDICARE, SELFPAY ==
--- NOTE | ~2024-08-28 | MR_ITS ---
EXAMINATION: MR brain IAC wo/w con DATE: 08/28/2024 11:10 INDICATION: Vestibular schwannoma TECHNIQUE: Magnetic resonance imaging (MRI) of the brain and brainstem was performed without and with 15 mL Multihance intravenous contrast. Sequences included sagittal and axial T1-weighted FSE, axial diffusion-weighted FS EPI, axial T2*-weighted GRE, axial T2-weighted FLAIR Propeller, axial T2-weight ed Propeller, small htuob-kq-afni coronal FIESTA, small woqle-ub-teis coronal T1-weighted FSE, and sm all hiqdt-wd-agtc axial T1-weighted SPGR. Postcontrast sequences included axial T1-weighted FSE, smal l xdkfm-iw-gsue coronal T1-weighted FSE, and small yppud-xb-vtcc axial T1-weighted SPGR. Apparent dif fusion coefficient (ADC) maps were created. COMPARISON: None. FINDINGS: There are no areas of restricted diffusion to suggest acute infarction. No intracranial hemorrhage. 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 This exerts mass effect upon the right 7th and 8th cranial nerves which extend to the right internal auditory canal along the anteroinferior ma rgin of the mass. No other intracranial masses or other abnormal enhancing lesions identified. The le ft 7th and 8th cranial nerve complex is normal. The mass effaces the CSF signal from the right color finisher al auditory canal. No evidence of mastoid or middle ear fluid. There are scattered areas of nonspe cific increased T2-weighted signal intensity in the cerebral white matter, predominantly involving th e deep and periventricular white matter. There are no intraparenchymal signal abnormalities seen on t he other pulse sequences. The ventricles are symmetric and normal in size. There are no abnormal extr a-axial fluid collections. Flow voids are seen in the cerebral arteries on the T2-weighted sequences consistent with their expected patency. Bilateral dudley bullosa. Mild mucosal thickening the bilater al ethmoid sinuses. Visualized orbits and soft tissues are unremarkable. IMPRESSION: 1. 2.1 x 2.0 x 1.5 cm enhancing mass arising from the right internal auditory canal and bulging into the cistern at the cerebral pontine angle consistent reported history of schwannoma. No evident schwa nnoma to the contralateral left internal auditory canal or other abnormal masses or enhancing lesions . 2. Moderate scattered periventricular predominant nonspecific white matter T2 hyperintensity consiste nt with chronic small vessel ischemic disease. Reviewed, dictated and finalized at location A. IMPRESSION: 1. 2.1 x 2.0 x 1.5 cm enhancing mass arising from the right internal auditory c anal and bulging into the cistern at the cerebral pontine angle consistent repo rted history of schwannoma. No evident schwannoma to the contralateral left int ernal auditory canal or other abnormal masses or enhancing lesions. 2. Moderate scattered periventricular predominant nonspecific white matter T2 h yperintensity consistent with chronic small vessel ischemic disease.
--- OUTSIDE RECORDS SUMMARY | 2024-08-28 10:07 | XMS_ITS | Encounter Summary ---
Author Organization [facility] Address [address] [place] [address] Phone Care Team Providers Care Firer Diesel Locomotive Name Role Phone Bhaskar Henry MD Primary Care Provider Juan R Milton MD Unavailable [phone] Encounter Details Date Type Department Care Team (Late st Contact Info) Description 10/18/2022 Telephone [facility] Referral Management [facility] [address] [place], [place] [id number] Bhaskar Henry MD [address] [facility] [facility] [place] [address] Social History Tobacco Use Types [...] requested by Centralized Referral Management. [place] [facility] OnCall - Centralized Referral Management 10/18/2022, 10:08 AM CDT documented in this encounter Plan of Treatment Upcoming Encounters Date Type Department Care Team (Late st Contact Info) Description 08/31/2024 2:15 PM CDT Office Visit [facility] Medical [facility] - Internal Medicine - [place] [address] [place] [address] Bhaskar Henry MD [address] [facility] [place] [address] 11/18/2024 2:30 PM CDT Office Visit [facility] - Neurology - [place] [address] [place] [address] Juan R Milton MD [address] [place] [address] documented as of this encounter Visit Diagnoses Not on filedocumented in this encounter Additional Health Concerns Infection Onset Date Last Indicated Resolved Time Respiratory Rule-Out 05/08/2024 05/08/2024 025 7:48 AM SHOP COOPER Assessment Noted Time PHQ-9 Depression Total Score: 3 10/16/19 23 3:00 PM CDT documented as of this encounter Care Teams Firer Diesel Locomotive Relationship Specialty Start Date End Date Bhaskar Henry MD [address] [place] [address] PCP - General Internal Medicine 09/01/15 Juan R Milton MD [address] [place] [address] Consulting Physician Neurology 01/20/23 documented as of this encounter
--- OUTSIDE RECORDS SUMMARY | 2024-08-28 10:07 | XMS_ITS | Encounter Summary ---
Author Organization [facility] Address [address] [place] [address] Phone Care Team Providers Care Window Covering Sales Consultant Name Role Phone Bhaskar Henry MD Primary Care Provider Juan R Milton MD Unavailable [phone] Reason for Visit * Reason Comments Medication Refill Encounter Details Date Type Department Care Team (Late st Contact Info) Description 01/14/2023 Refill [facility] - Neurology - [place] [address] [place] [address] Juan R Milton MD [address] [place] [phone] Medication Refill Social History Tobacco Use Types [...] Dept 10/15/22 Office Visit Bhaskar Henry MD [facility] 10/01/22 Office Visit Juan R Milton MD [facility] Neurology [facility] [place] Joyner Showing recent visits within past 182 days and meeting all other requirements Future Appointments Date Type Provider Dept 01/21/23 Appointment Bhaskar Henry MD [facility] 03/06/23 Appointment Juan R Milton MD [facility] Neurology [place] [facility] [place] [facility] Showing future appointments within next 90 days and meeting all other requirements documented in this encounter Plan of Treatment Upcoming Encounters Date Type Department Care Team (Late st Contact Info) Description 08/31/2024 2:15 PM CDT Office Visit [facility] - Internal Medicine - [place] [address] [place] [phone] Bhaskar Henry MD [address] [place] [address] 11/18/2024 2:30 PM CDT Office Visit [facility] - Neurology - [place] [address] [place] [phone] Juan R Milton MD [address] [place] [address] documented as of this encounter Visit Diagnoses Not on filedocumented in this encounter Additional Health Concerns Infection Onset Date Last Indicated Resolved Time Respiratory Rule-Out 05/08/2024 05/08/2024 025 7:48 AM LABEL SEWER Assessment Noted Time PHQ-9 Depression Total Score: 3 10/16/19 23 3:00 PM CDT documented as of this encounter Care Teams Window Covering Sales Consultant Relationship Specialty Start Date End Date Bhaskar Henry MD [address] [place] [address] PCP - General Internal Medicine 09/01/15 Juan R Milton MD [address] [place] [address] Consulting Physician Neurology 01/20/23 documented as of this encounter
--- OUTSIDE RECORDS SUMMARY | 2024-08-28 10:07 | XMS_ITS | Encounter Summary ---
Author Organization [facility] Address [address] [place] [address] Phone Care Team Providers Care Non Acoustic Operator Name Role Phone Bhaskar Henry MD Primary Care Provider [phone] Juan R Milton MD Unavailable [phone] Reason for Visit * Reason Comments Medication Refill Encounter Details Date Type Department Care Team (Late Contact Info) Description 04/06/2023 [facility]ill [facility] Medicine - [place] [address] [place] [address] Bhaskar Henry MD [address] [place] [address] Medication Refill Social History Tobacco [...] Department Care Team (Late Contact Info) Description 08/31/2024 2:15 PM CDT Office Visit [facility] - Internal Medicine [facility] [address] [place] [address] Bhaskar Henry MD [address] [place] [address] 11/18/2024 2:30 PM CDT Office Visit [facility] - Neurology [facility] [address] [place] [address] Juan R Milton MD [address] [place] [address] documented as of this encounter Visit Diagnoses Not on filedocumented in this encounter Additional Health Concerns Infection Onset Date Last Indicated Resolved Time Respiratory Rule-Out 05/08/2024 05/08/2024 025 7:48 AM SHANK SANDER Assessment Noted Time PHQ-9 Depression Total Score: 3 10/16/19 23 3:00 PM CDT documented as of this encounter Care Teams Non Acoustic Operator Relationship Specialty Start Date End Date Bhaskar Henry MD [address] [place] [address] PCP - General Internal Medicine 09/01/15 Juan R Milton MD [address] [place] [address] Consulting Physician Neurology 01/20/23 documented as of this encounter
--- OUTSIDE RECORDS SUMMARY | 2024-08-28 10:07 | XMS_ITS | Clinical Summary ---
Author Organization [facility] Address [address] [place] [address] Care Team Providers Care Bacon Slicer Name Role Phone Bhaskar Henry MD Primary Care Provider [phone] Source Comments [facility],non-owned Affiliates and Associated Physician Practices is amultiple site organization consisting of ambulatory clinics and hospital sitesin [place], [place], [place] and [place]. This disclosure is being madepursuant to the Care Everywhere program and may not contain all information available regarding this patient. Last updated 17.[facility] [email or web address] Allergies Active Allergy Reactions Criticality Noted Date [...] document. Alwaysverify current medications with the patient. metoprolol succinate XL 24hr (TOPROL XL) 50 [...] by mouth once daily Active albuterol HFA (PROVENTIL;VENT DARYL;PROAIR) 108 (90 Base) MCG/ACT inhaler Inhale 2 puffs by mouth 2 times daily 07/30/2019 Active Multiple Vitamins-Minera ls (MULTIVITAMIN ADULT PO) Take 1 tablet by mouth once daily Active aspirin (ASPIRIN) 325 MG tablet Take 325 mg by mouth once daily Active Calcium-Magnesi um-Vitamin D 500-250-200 MG-MG-UNIT TABS Take 1 tablet by mouth once daily Active nystatin (MYCOSTATIN) 599496 UNIT/ML suspension Swish and swallow 5 mL [...] of Binge Drinking Not on file 02/05 Comments Unknown Sex and Gender Information Value Date Recorded Sex Assigned at Not on file Legal Sex Female 11:02 AM CDT Gender Identity Not on file Sexual [...] 81.6 kg (180 lb) 02/22/2020 2:47 PM REVIEW APPRAISER Height 165.1 cm (5' 5) 02/22/2020 2:47 PM REVIEW APPRAISER Body Mass Index 29.95 02/22/2020 2:47 PM REVIEW APPRAISER Plan of Treatment Health Maintenance Due Date [...] Tdap) 1976 PNEUMOCOCCAL VACCINE 50+ (1 of 1 - PCV) 08/24/2007 ZOSTER VACCINE (1 of 2) 08/24/2007 SCREENING FOR DIABETES 01/28/2023 0, 01/29/2020, 01/28/2020 COVID-19 VACCINE (1 - 2023-2 5 season) 2023 DEPRESSION SCREENING 04/07/2024 INFLUENZA VACCINE (Season Ended) 2024 Respiratory Syncytial Virus (RSV) Vaccine Pt: or [...] complete this topic MENINGOCOCCAL (Group B) VACCINE SHARED DECISION-MAKING Aged Out No longer eligible based on patient's age to complete this topic MENINGOCOCCAL GROUPS A/C/Y/W VACCINE Aged Out No longer eligible b [...] - 106 mg/dL 01/29/2020 12:32 PM CDT [facility] Specimen Type Arterial/C apillary 01/29/2020 12:32 PM CDT [facility] Blood BLOOD SPECIMEN / Unknown 01/29/2020 8:05 AM CDT 01/29/2020 12:32 PM CDT Nishant Taylor MD LAB - POINT OF CARE ORDERABLE S Final Result [facility] [address] [place] [address] from Last 3 Months or Most Recently Relevant to Health Maintenance Insurance Advance Directives * Full Code (Latest Code Status on File) Date Activated Date Inactivated Comments 01/28/2020 2:23 PM 01/29/2020 1:46 PM Care Teams Bacon Slicer Relationship Specialty Start Date End Date Bhaskar Henry MD [address] [place] [address] PCP - General Internal Medicine 01/28/20
--- OUTSIDE RECORDS SUMMARY | 2024-08-28 10:07 | XMS_ITS | Clinical Summary ---
Author Organization [facility] Address [address] [facility] [address] [place] [address] Phone Care Team Providers Care Track Walker Name Role Phone Bhaskar Henry MD Primary Care Provider [phone] Juan R Milton MD Unavailable [phone] Allergies Active Allergy Reactions Criticality Noted Date [...] 1 Tab by mouth daily. Active Multiple Vitamins-Mineral s (MULTIVITAMIN PO) Take 1 Tab by mouth daily. Active vitamin E (TOCOPHEROL) 400 UNIT Capsule Take 1 Capsule by mouth daily. 90 Capsule 08/24/19 21 Active triamcinolone (KENALOG) 0.1 % Cream Apply to rash areas bid for 2 weeks 80 g 1 04/29/19 24 Active Cholecalciferol (Vitamin D3) 2000 UNIT Capsule Take 2,000 Units by mouth daily. Active fluticasone (FLONASE) 50 MCG/ACT Suspension 1 Cogswell by Nasal route in the morning and at bedtime. Use in each nostril as directed. 16 g 10/30/19 24 Active cetirizine (ZyrTEC) 10 MG Tablet Take 1 Tablet by mouth daily. 02/10/20 24 Active aspirin EC 81 MG Tablet Delayed Response Take 81 mg by mouth daily. Active albuterol 108 (90 Base) MCG/ACT Aerosol Solution take 2 Puffs by inhalation every 6 hours as needed for Wheezing. 18 g 2 05/18/19 25 Active alendronate (FOSAMAX) 70 MG TabletIndication s:Age-related osteoporosis without current pathological fracture Take 1 Tablet by mouth every 7 days. 12 Tablet 3 05/18/19 25 Active amLODIPine-benaz epril (LOTREL) 5-10 MG Capsule Take 1 Capsule by mouth daily. 90 Capsule 1 05/18/19 25 Active DULoxetine (CYMBALTA) [address] Particles Take 1 Capsule by mouth daily. 90 Capsule 05/18/19 25 Active eszopiclone (LUNESTA) 2 MG TabletIndication s:Primary insomnia Take 1 Tablet by mouth nightly as needed for Sleep. 30 Tablet 1 05/18/19 25 Active metoprolol Succinate (TOPROL-XL) 50 MG TABLET SR 24 HR Take 1 Tablet by mouth daily. 90 Tablet 1 05/18/19 25 Active montelukast (SINGULAIR) 10 MG Tablet Take 1 Tablet by mouth daily. 90 Tablet 1 05/18/19 25 Active pantoprazole (PROTONIX) 40 MG Tablet Delayed Response Take 1 Tablet by mouth daily. 90 Tablet 1 05/18/19 25 Active predniSONE (DELTASONE) 10 MG Tablet Take 3 Tablets by mouth daily. 21 Tablet 05/18/19 25 Active ezetimibe (ZETIA) 10 MG Tablet Take 1 tablet by mouth once daily 90 Tablet 08/13/19 25 Active ezetimibe (ZETIA) 10 MG Tablet Take 1 Tablet by mouth daily. 30 Tablet 3 05/18/19 25 025 Discontinued Active Problems Problem Noted Date Diagnosed Date [...] Encounters Date Type Department Care Team Description 08/12/2024 Refill [facility] - Internal Medicine - [place] [address] [place] [address] Bhaskar Henry MD Medication Refill 08/11/2024 Telephone [facility] - Neurology [facility] [address] [place] [address] Juan R Milton MD from Last 3 Months Immunizations Immunization [...] Cessation:Ready to Q uit: No; Counseling Given: Not Answered Alcohol Use Standard Drinks/Week Comments No 0 (1 standard drink = 0.6 oz pur e alcohol) [facility] Utilities Answer Date Recorded In the past 12 months has [employer] electric, gas, oil, or water company threatened [...] often do you attend chur ch or jewish services? Never 07/31/2023 Do you belong to any clubs o r organizations such as yazdanism groups, unions, fraternal or athletic groups, or [...] Recorded Total Score - Questions 1-9 0 05/08 [facility] - Occupational Stress Questionnaire Answer [...] Sign Reading Time Taken Comments Blood Pressure 120/76 05/21/2024 2:51 PM GIS ANALYST Pulse 91 05/21/2024 2:51 PM GIS ANALYST Temperature 36.7 C (98.1 F) 05/21/2024 2:51 PM GIS ANALYST Respiratory Rate 18 05/21/2024 2:51 PM GIS ANALYST Oxygen Saturation 89% 05/18/2024 2:50 PM GIS ANALYST Inhaled Oxygen Concentration - - Weight 74.4 kg (164 lb 1.6 oz) 05/21/2024 2:51 P M GIS ANALYST Height 160 cm (5' 3) 05/21/2024 2:51 PM GIS ANALYST Body Mass Index 29.07 05/21/2024 2:51 PM GIS ANALYST Plan of Treatment Upcoming Encounters Date Type Department Care Team (Late st Contact Info) Description 08/31/2024 2:15 PM CDT Office Visit [facility] - Internal Medicine - [place] [address] [place] [phone] Bhaskar Henry MD [address] [place] [address] 11/18/2024 2:30 PM CDT Office [facility] - Neurology [facility] [address] [place] [address] Juan R Milton MD [address] [place] [address] Health Maintenance Due Date Last Done Comments Hepatitis C Virus (HCV) Screening 1955 Cologuard 08/24/2007 Immunochemical Fecal Occult Blood 08/24/2007 Zoster Immunization (1 of 2) 08/24/2007 Mammogram 06/19/2023 06/18/2022, 05/16/2017, 09/21/2015 SARS-COV-2 Immunization ( season) 2023 03/21/2021, 07/14/2020, 06/14/2020 Lung Cancer Screening 09/29/2024 09/30/2023 , 06/18/2022 [...] on patient's age to complete this topic Human Papillomavirus (HPV) Immunization Aged Out No longer eligible based [...] exams dated: 05/16/2017, 09/21/2015, and 01/06/2014 [facility]. BREAST TISSUE:The tissue of both breasts is [...] exam. Electronically signed by: Leatha funes/penrad:06/18/2022 14:27:49 Upper Leather Cutter(s): RT Moreno(R)(M), [facility] letter sent: Normal Exam Reading location: [facility] BI-RADS: 1 Negative Procedure Note Leatha De [...] to exams dated: 05/16/2017, 09/21/2015, and 01/06/2014 [facility]. BREAST TISSUE:The tissue of both breasts is [...] exam. Electronically signed by: Leatha funes/penrad:06/18/2022 14:27:49 Upper Leather Cutter(s): Katya Enriquez, RT(R)(M), [facility] letter sent: Normal Exam Reading location: [facility] BI-RADS: 1 Negative Bhaskar Henry MD IMG MAMMO ORDERABLES Final Result from Last 3 Months or Most Recently Relevant to Health Maintenance Insurance [facility] Care Teams Track Walker Relationship Specialty Start Date End Date Bhaskar Henry MD [address] [place] [address] PCP - General Internal Medicine 09/01/15 Juan R Milton MD [address] [place] [address] Consulting Physician Neurology 01/20/23
== END 2024-08-28 10:00 | disposition home or self-care (01) ==
LOC: CHSIMG 10:04
PROVIDERS: PCP Internal Medicine; Visit Provider Psychiatry & Neurology Neurology
DX: D33.3 Benign neoplasm of cranial nerves (principal); H90.5 Unspecified sensorineural hearing loss
CPT/HCPCS: 70553; A9577

== ENCOUNTER 2024-12-21 00:14 | Day surgery (SDC) | payer MEDICARE, SELFPAY ==
[2024-12-10 09:00] VITALS: BMI 31.1
--- OUTSIDE RECORDS SUMMARY | 2024-12-21 00:16 | XMS_ITS | Clinical Summary ---
Author Organization [facility] Address [facility] [place] [address] Care Team Providers Care Adjuster Electrical Contacts Name Role Phone Unavailable Primary Care Provider Unavailabl e Social History Tobacco Use Types Packs/Day Years Used Date Smoking Tobacco: Never Assessed Comments Unknown Sex and Gender Information Value Date Recorded Sex Assigned at Not on file Legal Sex Female 5:46 PM HEALTH AND SAFETY TRAINER Gender Identity Not on file Sexual Orientation Not on file Plan of Treatment Health Maintenance Due Date Last Done Comments Colorectal Cancer Screening Colonoscopy (10 Years) 1955 Hepatitis C 08/24/1975 DTaP, Tdap and Td Vaccines ( 1 - Tdap) 1976 Mammogram Screening 1997 Pneumococcal Vaccine: 50+ Ye ars (1 of 1 - PCV) 08/24/2007 Zoster Vaccines (1 of 2) 08/24/2007 Dexa Scan (General) 2022 COVID-19 Vaccine ( - 2023-2 5 season) 2024 RSV Immunization or 60+ Years (1 [...]
--- OUTSIDE RECORDS SUMMARY | 2024-12-21 00:16 | XMS_ITS | Encounter Summary ---
Author Organization [facility] Address [address] [place] [address] Phone Care Team Providers Care Patcher Wood Welder Name Role Phone Bhaskar Henry MD Primary Care Provider [phone] Juan R Milton MD Unavailable [phone] Reason for Visit * Reason Comments Medication Refill Encounter Details Date Type Department Care Team (Late st Contact Info) Description 01/14/2023 Refill [facility] - Neurology [facility] [address] [place] [address] Juan R Milton MD [address] [place] [address] Medication Refill Social History Tobacco Use Types [...] Refills DULoxetine (CYMBALTA) [address] Particles [Pharmacy Med Name: DULoxetine HCl 60 MG [...] 10/15/22 Office Visit Bhaskar Henry MD [facility] 10/01/22 Office Visit Juan R Milton MD [facility] Neurology [facility] Showing recent visits within past 182 days and meeting all other requirements Future Appointments Date Type Provider Dept 01/21/23 Appointment Bhaskar Henry MD [facility] 03/06/23 Appointment Juan R Milton MD [facility] Neurology [facility] Showing future appointments within next 90 days and meeting all other requirements documented in this encounter Plan of Treatment Upcoming Encounters Date Type Department Care Team (Late st Contact Info) Description 01/13/2025 2:15 PM CDT Office Visit [facility] - Neurology - [place] [address] [place] [place] [address] Juan R Milton MD [address] [facility] [place] [address] documented as of this encounter Visit Diagnoses Not on filedocumented in this encounter Additional Health Concerns Infection Onset Date Last Indicated Resolved Time Respiratory Rule-Out 05/08/2024 05/08/2024 025 7:48 AM 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
--- OUTSIDE RECORDS SUMMARY | 2024-12-21 00:16 | XMS_ITS | Clinical Summary ---
Author Organization [facility] Address [address] [place] [address] Care Team Providers Care Chief Gauger Name Role Phone Bhaskar Henry MD Primary Care Provider [phone] Source Comments [facility],non-owned Affiliates and Associated Physician Practices is amultiple site organization consisting of ambulatory clinics and hospital sitesin [place], [place], [place] and [place]. This disclosure is being madepursuant to the Care Everywhere program and may not contain all information available regarding this patient. Last updated 17.[facility] Catarizm Allergies Active Allergy Reactions Criticality Noted Date [...] by mouth once daily Active nystatin (MYCOSTATIN) 065576 UNIT/ML suspension Swish and swallow 5 mL [...] 81.6 kg (180 lb) 02/22/2020 2:47 PM BACKGROUND CHECK COORDINATOR Height 165.1 cm (5' 5) 02/22/2020 2:47 PM BACKGROUND CHECK COORDINATOR Body Mass Index 29.95 02/22/2020 2:47 PM BACKGROUND CHECK COORDINATOR Plan of Treatment Health Maintenance Due Date [...] SCREENING FOR DIABETES 01/28/2023 0, 01/29/2020, 01/28/2020 DEPRESSION SCREENING 04/07/2024 COVID-19 VACCINE (1 - 2023-2 5 season) 2024 INFLUENZA VACCINE (#1) 2024 Respiratory Syncytial Virus (RSV) Vaccine Pt: [...] 106 mg/dL 01/29/2020 12:32 PM CDT [facility] Specimen Type Arterial/C apillary 01/29/2020 12:32 PM CDT [facility] Blood BLOOD SPECIMEN / Unknown 01/29/2020 8:05 AM CDT 01/29/2020 12:32 PM CDT Nishant Taylor MD LAB - POINT OF CARE ORDERABLE S Final Result [facility] [address] [place] [address] from Last 3 Months or Most Recently Relevant to Health Maintenance Insurance Advance Directives * Full Code (Latest Code Status on File) Date Activated Date Inactivated Comments 01/28/2020 2:23 PM 01/29/2020 1:46 PM Care Teams Chief Gauger Relationship Specialty Start Date End Date Bhaskar Henry MD [address] [place] [address] PCP - General Internal Medicine 01/28/20
--- OUTSIDE RECORDS SUMMARY | 2024-12-21 00:16 | XMS_ITS | Clinical Summary ---
Author Organization [facility] Address [address] [facility] [address] [place] [address] Phone Care Team Providers Care Compressor Stations Superintendent Name Role Phone Juan R Milton MD Unavailable [phone] Allergies Active Allergy Reactions Criticality Noted Date [...] 1 Capsule by mouth daily. 90 Capsule Active Cholecalciferol (Vitamin D3) 2000 UNIT Capsule Take 2,000 Units by mouth daily. Active fluticasone (FLONASE) 50 MCG/ACT Suspension 1 Canadian by Nasal route in the morning and at bedtime. Use in each nostril as directed. 16 g 4 Active cetirizine (ZyrTEC) 10 MG Tablet Take 1 Tablet by mouth daily. 4 Active aspirin EC 81 MG Tablet Delayed Response Take 81 mg by mouth daily. Active albuterol 108 (90 Base) MCG/ACT Aerosol Solution take 2 Puffs by inhalation every 6 hours as needed for Wheezing. 18 g 2 5 Active montelukast (SINGULAIR) 10 MG Tablet Take 1 Tablet by mouth daily. 90 Tablet 1 5 Active alendronate (FOSAMAX) 70 MG TabletIndications :Age-related osteoporosis without current pathological fracture Take 1 Tablet by mouth every 7 days. 12 Tablet 3 5 Active amLODIPine-benaze pril (LOTREL) 5-10 MG Capsule Take 1 Capsule by mouth daily. 90 Capsule 1 5 Active DULoxetine (CYMBALTA) [address] Particles Take 1 Capsule by mouth daily. 90 Capsule 5 Active eszopiclone (LUNESTA) 2 MG TabletIndications :Primary insomnia Take 1 Tablet by mouth nightly as needed for Sleep. 30 Tablet 1 5 Active ezetimibe (ZETIA) 10 MG Tablet Take 1 Tablet by mouth daily. 90 Tablet 5 Active metoprolol Succinate (TOPROL-XL) 50 MG TABLET SR 24 HR Take 1 Tablet by mouth daily. 90 Tablet 1 5 Active pantoprazole (PROTONIX) 40 MG Tablet Delayed Response Take 1 Tablet by mouth daily. 90 Tablet 1 5 Active triamcinolone (KENALOG) 0.1 % Cream Apply to rash areas bid for 2 weeks 80 g 1 5 Active Active Problems Problem Noted Date Diagnosed Date Polyneuropathy 02/10/2024 Age-related osteoporosis wit hout current pathological fracture 10/08/2023 Centrilobular emphysema 01/21/2023 Right-sided acoustic neuroma 03/22/2021 Mixed hyperlipidemia 04/18/2020 Primary insomnia 04/18/2020 GERD without esophagitis 12/09/2010 Allergic rhinitis, unspecified 12/09/2010 Essential hypertension, benign 06/08/2010 Non-rheumatic mitral valve disease 06/08/2010 Resolved Problems Problem Noted Date Diagnosed Date Resolved Date Acute non-recurrent sinusitis 08/31/2024 08/31/2024 Mild intermittent asthma without complication 04/18/19 21 01/21/2023 Encounters Date Type Department Care Team Description 12/15/2024 Telephone [facility] [address] [place] [address] Bhaskar Henry MD Results 12/14/2024 Documentation Only [facility] [address] [place] [address] Bhaskar Henry MD 12/08/2024 Telephone [facility] [address] [place] [address] Bhaskar Henry MD Appointment 11/09/2024 [facility]ill [facility] [address] [place] [address] Bhaskar Henry MD Medication Refill 10/01/2024 Documentation Only [facility] Internal Medicine [facility] [address] [place] [address] Bhaskar Henry MD from Last 3 Months [...] drink = 0.6 oz pur e alcohol) [facility] Utilities Answer Date Recorded In the past 12 months has [facility] [employer], [employer], or [employer] threatened to shut off services in your home? No 07/31/2023 Social Connection and Isolation Panel Answer Date Recorded In a typical week, how many times do you talk on the phone with family, friends, or neighbors? More than three times a week 07/31/2023 How often do you get togethe r with friends or relatives? More than three times a week 07/31/2023 How often do you attend chur ch or latter-day services? Never 07/31/2023 Do you belong to any clubs o r organizations such as alevism groups, unions, fraternal or athletic groups, or [...] Recorded Total Score - Questions 1-9 0 08/06 [facility] - Occupational Stress Questionnaire Answer Date Recorded [...] place to sleep or slept in a skilled nursing (including now)? No 07/31/2023 Sexually Active Control Partners Comments Not Currently Comments No Sex and Gender Information Value Date Recorded Sex Assigned at Not on file Legal Sex Female 8:37 PM CDT Gender Identity Not on file Sexual Orientation Not on file Last Filed Vital Signs Vital Sign Reading Time Taken Comments Blood Pressure 136/74 08/31/2024 2:10 PM CDT Pulse 92 08/31/2024 2:10 PM CDT Temperature 36.3 C (97.4 F) 08/31/2024 2:10 PM CDT Respiratory Rate 18 05/21/2024 2:51 PM ELECTRONIC WARFARE OPERATOR Oxygen Saturation 94% 08/31/2024 2:10 PM CDT Inhaled Oxygen Concentration - - Weight 79.8 kg (176 lb) 08/31/2024 2:10 PM CDT Height 160 cm (5' 3) 08/31/2024 2:10 PM CDT Body Mass Index 31.18 08/31/2024 2:10 PM CDT Plan of Treatment Upcoming Encounters Date Type Department Care Team (Late st Contact Info) Description 01/13/2025 2:15 PM CDT Office Visit [facility] - [facility]rology [facility] [address] [place] [address] Juan R Milton MD [address] [place] [address] Health Maintenance Due Date Last Done Comments Hepatitis C Virus (HCV) Screening 1955 Cologuard 2002 Immunochemical Fecal Occult Blood 2002 Zoster Immunization (1 of 2) 08/24/2007 Mammogram 06/19/2023 06/18/2022, 05/16/2017, 09/21/2015 Lung Cancer Screening 09/29/2024 09/30/2023 , 06/18/2022 SARS-COV-2 Immunization ( season) 2024 03/21/2021, 07/14/2020, 06/14/2020 Colonoscopy 09/04/2025 09/05/2015 Colorectal Cancer Screening 09/04/2025 DEXA Bone Density 09/29/2025 09/30/2023, 09/30/2023 Pneumococcal Immunization (5 0+ years) (3 of 3 - PCV20 or PCV21) 03/29/2026 03/29/2021, 01/18/2011 Td Immunization Every 10 Yea rs (Adults With 1 Tdap) 09/11/2028 09/11/2018 DTaP/Tdap/Td Immunization Discontinued 09/11/2018 Pneumococcal Immunization Combined Discontinued 03/29/2021, 01/18/2011 Respiratory Syncytial Virus (RSV) Immunization (Adult) Completed 04/29/2023 Hepatitis B Immunization Aged Out No longer [...] exams dated: 05/16/2017, 09/21/2015, and 01/06/2014 [facility]. BREAST TISSUE:The tissue of both breasts is [...] exam. Electronically signed by: Leatha funes/penrad:06/18/2022 14:27:49 Client Executive(s): BARBARA Mayer)(M), [facility] letter sent: Normal Exam Reading location: [facility] BI-RADS: 1 Negative Procedure Note Leatha De La Fuente MD - 06/18/2022 - ALCIDES SCREENING BILATERAL DIGITAL W CAD W KIESHA BILATERAL DIGITAL SCREENING MAMMOGRAM 3D/2D WITH CAD WITH MEDIOLATERAL OBLIQUE CRANIOCAUDAL: 06/18/2022 The study was acquired using digital technology and interpreted from soft copy. Current study was also evaluated with [employer] version 7.2. 2D digital mammographic views, as [...] to exams dated: 05/16/2017, 09/21/2015, and 01/06/2014 [facility]. BREAST TISSUE:The tissue of both breasts [...] exam. Electronically signed by: Leatha funes/penrad:06/18/2022 14:27:49 Client Executive(s): AYDEN MayerR)(M), [facility] letter sent: Normal Exam Reading location: [facility] BI-RADS: 1 Negative us Bhaskar Henry MD IMG MAMMO ORDERABLES Final Result from Last 3 Months or Most Recently Relevant to Health Maintenance Insurance MEDICARE C [facility] Care Teams Compressor Stations Superintendent Relationship Specialty Start Date End Date Juan R Milton MD [address] [place] [address] Consulting Physician Neurology 01/20/23
--- OUTSIDE RECORDS SUMMARY | 2024-12-21 00:16 | XMS_ITS | Encounter Summary ---
Author Organization [facility] Address [address] [place] [address] Phone Care Team Providers Care Inventory Worker Name Role Phone Bhaskar Henry MD Primary Care Provider [phone] Juan R Milton MD Unavailable [phone] Reason for Visit * Reason Comments Medication Refill Encounter Details Date Type Department Care Team (Late Contact Info) Description 04/06/2023 Refill [facility] - Internal Medicine - [place] [address] [place] [address] Bhaskar Henry MD [address] [place] [address] Medication Refill Social History Tobacco Use Types [...] Department Care Team (Late Contact Info) Description 01/13/2025 2:15 PM CDT [facility] [address] [place] [address] Juan R Milton MD [address] [place] [address] documented as of this encounter Visit Diagnoses Not on filedocumented in this encounter Additional Health Concerns Infection Onset Date Last Indicated Resolved Time Respiratory Rule-Out 05/08/2024 05/08/2024 025 7:48 AM SOLAR ENERGY SPECIALIST Assessment Noted Time PHQ-9 Depression Total Score: 3 10/16/19 23 3:00 PM CDT documented as of this encounter Care Teams Inventory Worker Relationship Specialty Start Date End Date Bhaskar Henry MD PCP - General Internal Medicine 09/01/15 12/08/24 Juan R Milton MD [address] [place] [address] Consulting Physician Neurology 01/20/23 documented as of this encounter
--- OUTSIDE RECORDS SUMMARY | 2024-12-21 00:16 | XMS_ITS | Patient Health Record ---
Author Organization [facility] Address [address] [place], [place] [id number] Care Team Providers Care Cement And Concrete Plant Worker Name Role Phone SILVIA CASTANEDA Unavailable [phone] HenryJovani jones Unavailable Unavailable Reason For Referral No Information Medications Medication SIG (Take, Route, Frequency, Duration) Notes Start Date End Date Status meloxicam 7.5 MG Oral Tablet [Mobic] ORAL meloxicam 7.5 MG Oral Tablet [Mobic]Original Medicationmeloxicam 7.5 MG Oral Tablet [Mobic] *Reorder from [employer] for eRx and Interaction Alerts* 08/26/2014 Active Medrol Dosepak ORAL Medrol DosepakOr iginal MedicationMedrol Dosepak *Reorder from [employer] for eRx and Interaction Alerts* 09/16/2014 Active Plan Of Treatment No Information Insurance Providers Payer Name Payer Address Payer Phone Subscriber Number Group Number Insured Name Patient Relationship to Insured Coverage Start Date Coverage End Date [facility] (Maryjane [facility]) [address] [place], [place] [id number] JYOTHI BELLA Self - patient is the insured
--- OUTSIDE RECORDS SUMMARY | 2024-12-21 00:16 | XMS_ITS | Encounter Summary ---
Author Organization [facility] Address [address] [place] [place] [address] Phone Care Team Providers Care Construction Executive Name Role Phone Juan R Milton MD Unavailable [phone] Encounter Details Date Type Department Care Team (Late st Contact Info) Description 12/14/2024 Documentation Only [facility] - [facility] Care - [place] [address] [place] [address] Bhaskar Henry MD [address] [place] [address] Social History Tobacco Use Types Packs/Day Years Used Date Smoking Tobacco: Every Day Cigarettes 1.5 40 Passive Smoke Exposure: Current Smokeless Tobacco: Never Alcohol Use Standard Drinks/Week Comments No 0 (1 standard drink = 0.6 oz pur e alcohol) [facility] Utilities Answer Date Recorded In the past 12 months has [employer], gas, oil, or water company threatened to [...] week 07/31/2023 How often do you attend [facility] or roman catholic services? Never 07/31/2023 Do you belong to any clubs o r organizations such as amish groups, unions, fraternal or athletic groups, or [...] Total Score - Questions 1-9 0 08/06 [facility] - Occupational Stress Questionnaire Answer Date [...] place to sleep or slept in a mcfp (including now)? No 07/31/2023 Sexually Active Control [...] Description 01/13/2025 2:15 PM CDT [facility] [address] [place] [address] Juan R Milton MD [address] [place] [address] documented as of this encounter Visit Diagnoses Not on filedocumented in this encounter Additional Health Concerns Assessment Noted Time PHQ-9 Depression Total Score: 0 09/01/19 25 2:10 PM CDT documented as of this encounter Care Teams Construction Executive Relationship Specialty Start Date End Date Juan R Milton MD [address] [place] [address] Consulting Physician Neurology 01/20/23 documented as of this encounter
--- OUTSIDE RECORDS SUMMARY | 2024-12-21 00:17 | XMS_ITS | Encounter Summary ---
Author Organization [facility] Address [address] [place] [address] Phone Care Team Providers Care Superintendent Institution Name Role Phone Bhaskar Henry MD Primary Care Provider Juan R Milton MD Unavailable Encounter Details Date Type Department Care Team (Late st Contact Info) Description 10/18/2022 Telephone [facility] [address], [place] [address] Bhaskar Henry MD [address] [place] [address] Social History Tobacco Use Types Packs/Day Years [...] encounter Miscellaneous Notes * Telephone Encounter - KamarRiver alcaraz Belle - 10/18/2022 10:08 AM CDT SITUATION: Patient [...] requested by Centralized Referral Management. [place] [facility] OnCall - Centralized Referral Management 10/18/2022, 10:08 AM CDT documented in this encounter Plan of Treatment Upcoming Encounters Date Type Department Care Team (Late st Contact Info) Description 01/13/2025 2:15 PM CDT Office Visit [facility] - Neurology [facility] [address] [place] [address] Juan R Milton MD [address] [place] [address] documented as of this encounter Visit Diagnoses Not on filedocumented in this encounter Additional Health Concerns Infection Onset Date Last Indicated Resolved Time Respiratory Rule-Out 05/08/2024 05/08/2024 025 7:48 AM PEDIATRIC HOSPITALIST Assessment Noted Time PHQ-9 Depression Total Score: 3 10/16/19 23 3:00 PM CDT documented as of this encounter Care Teams Superintendent Institution Relationship Specialty Start Date End Date Bhaskar Henry MD PCP - General Internal Medicine 09/01/15 12/08/24 Juan R Milton MD [address] [place] [address] Consulting Physician Neurology 01/20/23 documented as of this encounter
[2024-12-21 11:44] VITALS: BP 150/77; PULSE 103; RESP 16; TEMP 36.8; O2SAT 94; BMI 32.4
[2024-12-21] MEDS: LACTATED RINGERS 1,000 ML 150 ML IV CONT (11:54)
--- NOTE | 2024-12-21 12:33 | WPDANESEPPF ---
Anes - Initial Pre Proc Eval Procedure: Operation Date: 12/21/24 13:00 Proposed Procedures p Screening Colonoscopy - Wyatt Ruiz DO Date/Time: 12/21/24 12:33 Surgeon: Wyatt Ruiz DO Pre Op Diagnosis: Prior history of colon polyps Patient Data Age: 69 Gender: F Height: 1.6 m Weight: 83.1 kg Last Vital Signs Temp 98.2 F 12/21/24 11:44 Pulse 103 H 12/21/24 11:44 Resp 16 12/21/24 11:44 BP 150/77 H 12/21/24 11:44 Pulse Ox 94 12/21/24 11:44 O2 Del Method Room Air 12/21/24 11:44 Allergies Allergy/AdvReac Type Severity Reaction Status Date / Time Sulfa (Sulfonamide Allergy Severe Vomiting Verified 12/21/24 11:40 Antibiotics) egg Allergy Unknown Hives Verified 12/21/24 11:40 shellfish derived Allergy Unknown Anaphylactic Verified 12/21/24 11:40 Shock amoxicillin (From Augmentin) Allergy Hives Verified 12/21/24 11:40 clavulanic acid (From Allergy Hives Verified 12/21/24 11:40 Augmentin) codeine Allergy Hives Verified 12/21/24 11:40 latex Allergy rash Verified 12/21/24 11:40 oxycodone (From Percocet) Allergy Hives Verified 12/21/24 11:40 Home Medications ?Medication ?Instructions ?Recorded ?Confirmed ?Type acetaminophen 650 mg 650 mg PO Q12H 02/18/23 12/10/24 History tablet,extended release (Tylenol Arthritis Pain) aspirin 325 mg tablet 325 mg PO DAILY 02/18/23 12/21/24 History cholecalciferol (vitamin D3) 25 25 mcg PO DAILY 02/18/23 12/21/24 History mcg (1,000 unit) capsule eszopiclone 2 mg tablet (Lunesta) 2 mg PO QHS PRN sleep 02/18/23 12/21/24 History multivitamin 1 tablet PO DAILY 02/18/23 12/21/24 History vitamin E (dl, acetate) 180 mg 180 mg PO DAILY 02/18/23 12/21/24 History (400 unit) capsule albuterol sulfate 90 mcg/actuation 1 puff inhalation Q4H PRN 09/30/24 12/21/24 History aerosol inhaler (Ventolin HFA) shortness of breath or wheezing alendronate 70 mg tablet (Fosamax) 70 mg PO WEEKLY 09/30/24 12/21/24 History triamcinolone acetonide 0.5 % 1 applic topical DAILY 09/30/24 12/21/24 History topical cream amlodipine 5 mg-benazepril 10 mg 1 cap PO DAILY #30 caps 12/03/24 12/21/24 Rx capsule benzonatate 200 mg capsule 200 mg PO TID PRN cough #30 caps 12/03/24 12/21/24 Rx cetirizine 10 mg tablet (Zyrtec) 10 mg PO DAILY #30 tabs 12/03/24 12/21/24 Rx ezetimibe 10 mg tablet 10 mg PO DAILY #30 tabs 12/03/24 12/21/24 Rx metoprolol succinate 50 mg 50 mg PO DAILY #30 tabs 12/03/24 12/21/24 Rx tablet,extended release 24 hr montelukast 10 mg tablet 10 mg PO DAILY #30 tabs 12/03/24 12/21/24 Rx pantoprazole 40 mg tablet,delayed 40 mg PO DAILY #30 tabs 12/03/24 12/21/24 Rx release duloxetine 20 mg capsule,delayed 10 mg PO DAILY 12/10/24 12/21/24 History release Patient hx anesthesia problems: post op nausea/vomiting Family hx anesthesia problems: none Results Review: All pre-operative results and documents have been reviewed as part of the pre-operative evaluation. [facility] Past Medical History Medical History Lung nodules Mitral valve prolapse Atrial fibrillation Hypertension Neuropathy Vestibular schwannoma Dr[facility] Waldemar Pang [facility] Surgical History Surgical History History of History of hysterectomy History of carpal tunnel surgery of right wrist History of elbow surgery right History of shoulder surgery left- labral tear right- rtc, bicep tendon repair Family History Family History Other Cancer Diabetes mellitus Heart disease Social History Social History Smoking packs per day: 2 Smoking cigarettes per day: 40.0 Years smoked: 50 Smoking pack-years: 100.00 Smoking status: Current every day smoker Tobacco type: cigarettes Alcohol intake: never Substance use: never Substance use type: does not use Do You Feel Safe in your Home?: Yes Lack of Transportation: No Lack of Food: Sometimes True Current Housing: I Have Housing Concerned About Future Housing: No Difficulty Paying Gas/Electric Bills: No Difficulty Paying for Meds: No Currently Unemployed: No Education: High School Diploma/GED Difficulty w/ Childcare or Family Care: No Living arrangements: with family Occupation/Education: retired Gender identity (if verbalized by the patient): Female Sexual Orientation (if Verbalized by the Patient): Straight or Heterosexual Spiritual care concerns: No Agree to blood products: Yes Anes - Eval Final PreProcedure Day of Procedure 12/21/24 12:33 Patient weight: obese Lungs: normal air movement Airway: Mallampati scale class II and special considerations (Edentulous on upper aspect. ) Neurological: alert and oriented Last oral intake: >/= 8 hours ASA classification: III Emergent: no Anesthetic plan: proceed Anesthesia type and monitoring: general GIVS Results Review: All pre-operative results and documents have been reviewed as part of the pre-operative evaluation. Chr afib, HTN, smoker 2 ppd. Informed Consent: The patient's anesthetic plan and its attendant risks and benefits were discussed with the patient/family/POA. Questions were solicited and answers provided to the satisfaction of the patient/family/POA.
--- NOTE | 2024-12-21 13:16 | PM.IMHP ---
H&P: HPI History of Present Illness Date/Time: 12/21/24 13:16 Chief Complaint: positive Cologuard test Narrative: this is a 69-year-old woman who presents for colonoscopy. Her last colonoscopy was 7 or 8 years ago and polyps were found at that time. She had a recent Cologuard test which was positive. She denies family history of colon cancer. She denies hematochezia or melena. Review of Systems Review of Systems: All systems reviewed & are unremarkable except as noted in HPI and below Constitutional: Constitutional: Denies chills, Denies fever(s), Denies headache(s) and Denies weight loss Eyes: Eyes: Denies change in vision ENT: Denies dizziness, Denies headache(s), Denies neck mass and Denies throat swelling Cardiovascular: Cardiovascular: Denies chest pain, Denies lightheadedness and Denies dyspnea Respiratory: Respiratory: Denies cough, Denies dyspnea and Denies wheezing Gastrointestinal: Gastrointestinal: Denies abdominal pain, Denies change in bowel habits, Denies nausea and Denies vomiting Genitourinary: Genitourinary: Denies hematuria and Denies dysuria Musculoskeletal: Musculoskeletal: Reports as per HPI Integumentary/Breasts: Skin/Breast: Reports as per HPI Neurologic: Denies dizziness and Denies headache(s) Allergic/Immunologic: Allergic/Immunologic: Denies throat swelling and Denies wheezing [facility] Past Medical History Medical History Lung nodules Mitral valve prolapse Atrial fibrillation Hypertension Neuropathy Vestibular schwannoma Dr. Waldemar Pang [facility] [place] [facility] Surgical History Surgical History History of History of hysterectomy History of carpal tunnel surgery of right wrist History of elbow surgery right History of shoulder surgery left- labral tear right- rtc, bicep tendon repair Family History Family History Other Cancer Diabetes mellitus Heart disease Social History Social History Smoking packs per day: 2 Smoking cigarettes per day: 40.0 Years smoked: 50 Smoking pack-years: 100.00 Smoking status: Current every day smoker Tobacco type: cigarettes Alcohol intake: never Substance use: never Substance use type: does not use Do You Feel Safe in your Home?: Yes Lack of Transportation: No Lack of Food: Sometimes True Current Housing: I Have Housing Concerned About Future Housing: No Difficulty Paying Gas/Electric Bills: No Difficulty Paying for Meds: No Currently Unemployed: No Education: High School Diploma/GED Difficulty w/ Childcare or Family Care: No Living arrangements: with family Occupation/Education: retired Gender identity (if verbalized by the patient): Female Sexual Orientation (if Verbalized by the Patient): Straight or Heterosexual Spiritual care concerns: No Agree to blood products: Yes Meds Home Medications and Allergies Home Medications ?Medication ?Instructions ?Recorded ?Confirmed ?Type acetaminophen 650 mg 650 mg PO Q12H 02/18/23 12/10/24 History tablet,extended release (Tylenol Arthritis Pain) aspirin 325 mg tablet 325 mg PO DAILY 02/18/23 12/21/24 History cholecalciferol (vitamin D3) 25 25 mcg PO DAILY 02/18/23 12/21/24 History mcg (1,000 unit) capsule eszopiclone 2 mg tablet (Lunesta) 2 mg PO QHS PRN sleep 02/18/23 12/21/24 History multivitamin 1 tablet PO DAILY 02/18/23 12/21/24 History vitamin E (dl, acetate) 180 mg 180 mg PO DAILY 02/18/23 12/21/24 History (400 unit) capsule albuterol sulfate 90 mcg/actuation 1 puff inhalation Q4H PRN 09/30/24 12/21/24 History aerosol inhaler (Ventolin HFA) shortness of breath or wheezing alendronate 70 mg tablet (Fosamax) 70 mg PO WEEKLY 09/30/24 12/21/24 History triamcinolone acetonide 0.5 % 1 applic topical DAILY 09/30/24 12/21/24 History topical cream amlodipine 5 mg-benazepril 10 mg 1 cap PO DAILY #30 caps 12/03/24 12/21/24 Rx capsule benzonatate 200 mg capsule 200 mg PO TID PRN cough #30 caps 12/03/24 12/21/24 Rx cetirizine 10 mg tablet (Zyrtec) 10 mg PO DAILY #30 tabs 12/03/24 12/21/24 Rx ezetimibe 10 mg tablet 10 mg PO DAILY #30 tabs 12/03/24 12/21/24 Rx metoprolol succinate 50 mg 50 mg PO DAILY #30 tabs 12/03/24 12/21/24 Rx tablet,extended release 24 hr montelukast 10 mg tablet 10 mg PO DAILY #30 tabs 12/03/24 12/21/24 Rx pantoprazole 40 mg tablet,delayed 40 mg PO DAILY #30 tabs 12/03/24 12/21/24 Rx release duloxetine 20 mg capsule,delayed 10 mg PO DAILY 12/10/24 12/21/24 History release Allergies Allergy/AdvReac Type Severity Reaction Status Date / Time Sulfa (Sulfonamide Allergy Severe Vomiting Verified 12/21/24 11:40 Antibiotics) egg Allergy Unknown Hives Verified 12/21/24 11:40 shellfish derived Allergy Unknown Anaphylactic Verified 12/21/24 11:40 Shock amoxicillin (From Augmentin) Allergy Hives Verified 12/21/24 11:40 clavulanic acid (From Allergy Hives Verified 12/21/24 11:40 Augmentin) codeine Allergy Hives Verified 12/21/24 11:40 latex Allergy rash Verified 12/21/24 11:40 oxycodone (From Percocet) Allergy Hives Verified 12/21/24 11:40 Vital Signs Vital Signs - 24 hr 12/21/24 11:44 Temperature 98.2 F Pulse Rate 103 H Respiratory Rate 16 Blood Pressure 150/77 H Pulse Oximetry 94 Oxygen Delivery Room Air Exam Const: General: no acute distress and alert Orientation/consciousness: patient oriented x3 HENMT: Head: normocephalic and atraumatic Ears: hearing grossly normal bilaterally Face/Nose/Sinus: Normal nares present Mouth: Yes Normal oral and palatal mucosa present Eyes: Periorbital: periorbital findings normal Sclera: sclerae normal EOM: EOMs intact bilaterally Neck: Neck: normal visual inspection, no lymphadenopathy and trachea midline Chest: Chest palpation & inspection: normal inspection of the chest Resp: Effort & Inspection: normal respiratory effort Auscultation: clear to auscultation bilaterally Cardio: Jugular venous distension: no JVD Rate: regular rate Rhythm: regular rhythm Heart sounds: S1 normal heart sound present and S2 normal heart sound present Peripheral pulses: Peripheral pulses 2+ throughout GI: Inspection: normal to inspection GI Palp: Yes Soft to palpation, No Tenderness to palpation present (GI), No Guarding due to palpation present (GI) and No Rebound tenderness present Percussion: Yes normal to percussion Auscultation: normal bowel sounds : General: Yes no CVA tenderness Back/Spine/Pelvis: Back: no CVA tenderness Neuro: General: patient oriented x3, no focal motor deficits and CN's II-XI intact bilaterally Cognition (Neuro): normal cognition Speech: normal speech Motor exam (neuro): 5/5 motor strength present throughout Extrem: General: capillary refill normal and no clubbing, cyanosis or edema Assessment and Plan Assessment and plan (1) Hx of colonic polyps: Code(s): Z86.0100 - Personal history of colon polyps, unspecified Status: Acute Assessment and Plan: I have recommended colonoscopy. I have discussed the procedure, risks, benefits, and alternatives. Questions were answered. Patient is agreeable to proceed.
--- NOTE | 2024-12-21 13:50 | S_PTH ---
PATIENT: Juana Banuelos LOC: [facility] U#:[id number] AGE/SX: 69/F ROOM: RE12/21/[address]: Wyatt Ruiz DO : 1955 BED: DIS: 12/21/2024 SPEC #: [id number] RECD: 12/21/24 14:23 STATUS: LUCA RE #: [id number] ESTELA: 12/21/24 13:[address]: Wyatt Ruiz DEPT: [facility] Surgical RECD BY: Marissa Carrington MLT, ([facility]) ENTERED: 12/21/24 14:25 SP TYPE: Surgical OTHR DR: Leo Mills DO Tissues: A - Colon Polypectomy B - Colon Polypectomy C - Colon Polypectomy Procedures: Hematoxylin and Eosin Stain Gross and Microscopic Level 4
[2024-12-21 13:52] VITALS: BP 134/86; PULSE 89; RESP 19; O2SAT 97
[2024-12-21 14:02] VITALS: BP 153/88; PULSE 85; RESP 19; O2SAT 97
[2024-12-21 14:12] VITALS: BP 159/90; PULSE 80; RESP 19; O2SAT 97
== END 2024-12-21 14:20 | disposition home or self-care (01) ==
PROVIDERS: PCP Family Medicine; Visit Provider Surgery
PROC: 0DJD8ZZ Inspection of Lower Intestinal Tract, Via Natural or Artificial Opening Endoscopic (ICD-10-PCS; CPT 45378; principal; 2024-12-21 13:00)
DX: D12.2 Benign neoplasm of ascending colon (principal); D12.3 Benign neoplasm of transverse colon; D12.5 Benign neoplasm of sigmoid colon; K57.30 Diverticulosis of large intestine without perforation or abscess without bleeding; I48.91 Unspecified atrial fibrillation; I10 Essential (primary) hypertension; G62.9 Polyneuropathy, unspecified; F17.210 Nicotine dependence, cigarettes, uncomplicated; E66.9 Obesity, unspecified; Z68.32 Body mass index [BMI] 32.0-32.9, adult; Z79.82 Long term (current) use of aspirin; Z79.51 Long term (current) use of inhaled steroids; Z79.83 Long term (current) use of bisphosphonates; Z98.890 Other specified postprocedural states; Z86.79 Personal history of other diseases of the circulatory system; Z80.9 Family history of malignant neoplasm, unspecified; Z82.49 Family history of ischemic heart disease and other diseases of the circulatory system
CPT/HCPCS: 45385; 88305; J2003; J2704; J7120

== ENCOUNTER 2024-12-21 15:23 | Outpatient (CLI) | payer MEDICARE, SELFPAY ==
[2024-12-21 15:43] LABS: Hematocrit 46.8 % (35.0-42.0); Hemoglobin 16.1 g/dL (11.7-13.8); Immature Granulocyte Percent A 0.6 % (0.0-0.0); Lymphocytes Absolute Auto 3.69 K/mm3 (1.10-4.50); Mean Corpuscular HGB Conc 34.4 g/dL (32-36); Mean Corpuscular Hemoglobin 32.1 pg (27.0-31.0); Mean Corpuscular Volume 93.2 fL (78.0-102.0); Nucleated Red Blood Cells Absolute Auto 0.00 K/mm3 (0.00-0.00); Nucleated Red Blood Cells Perc 0.0 % (0-0.0); Platelet Count Result 432 K/mm3 (150-420); Red Blood Count 5.02 M/mm3 (4.20-5.40); White Blood Count 12.5 K/mm3 (4.8-10.8)
[2024-12-21 15:55] LABS: Hemoglobin A1C 8.5 % (<5.7)
[2024-12-21 16:02] LABS: Alanine Aminotransferase 25 U/L (6-35); Albumin Level 3.9 g/dL (3.5-5.1); Alkaline Phosphatase 67 U/L (38-126); Anion Gap 12 mmol/L (4-12); Aspartate Amino Transferase 34 U/L (14-36); Bilirubin,Total 0.7 mg/dL (0.2-1.3); Blood Urea Nitrogen 5 mg/dL (7-17); Calcium 9.9 mg/dL (8.4-10.2); Carbon Dioxide 27 mmol/L (22-30); Chloride 98 mmol/L (98-107); Cholesterol 240 mg/dL (0-200); Estimated Glomerular Filt Rate > 60; Glucose 275 mg/dL (65-110); HDL Direct 35 mg/dL; Osmolality Calculated 291 mOsm/kg (285-295); Sodium 137 mmol/L (137-145); Total Protein 8.2 g/dL (6.3-8.2); Triglycerides 421 mg/dL (<150)
[2024-12-21 16:17] LABS: Potassium 4.1 mmol/L (3.4-5.0)
[2024-12-21 16:34] LABS: Thyroid Stimulating Hormone Reflex 1.040 uIU/mL (0.465-4.68)
--- OUTSIDE RECORDS SUMMARY | 2024-12-21 16:40 | XMS_ITS | Encounter Summary ---
Author Organization [facility] Address [address] [place] [place] [address] Phone Care Team Providers Care Market Research Manager Name Role Phone Juan R Milton MD Unavailable [phone] Encounter Details Date Type Department Care Team (Late st Contact Info) Description 12/14/2024 Documentation Only [facility] - Primary Care - [place] [address] [place] [address] Bhaskar Henry MD [address] [place] [address] Social History Tobacco Use Types Packs/Day Years Used Date Smoking Tobacco: Every Day Cigarettes 1.5 40 Passive Smoke Exposure: Current Smokeless Tobacco: Never Alcohol Use Standard Drinks/Week Comments No 0 (1 standard drink = 0.6 oz pur e alcohol) [facility] Utilities Answer Date Recorded In the past 12 months has [id number], gas, oil, or water company threatened to [...] week 07/31/2023 How often do you attend [facility] or episcopal services? Never 07/31/2023 Do you belong to any clubs o r organizations such as yarsanism groups, unions, fraternal or athletic groups, or [...] Total Score - Questions 1-9 0 08/06 [facility] - Occupational Stress Questionnaire Answer [...] place to sleep or slept in a senior care (including now)? No 07/31/2023 Sexually Active Control [...] Description 01/13/2025 2:15 PM CDT [facility] [address] [place] [address] Juan R Milton MD [address] [place] [address] documented as of this encounter Visit Diagnoses Not on filedocumented in this encounter Additional Health Concerns Assessment Noted Time PHQ-9 Depression Total Score: 0 09/01/19 25 2:10 PM CDT documented as of this encounter Care Teams Market Research Manager Relationship Specialty Start Date End Date Juan R Milton MD [address] [place] [address] Consulting Physician Neurology 01/20/23 documented as of this encounter
--- OUTSIDE RECORDS SUMMARY | 2024-12-21 16:40 | XMS_ITS | Encounter Summary ---
Author Organization [facility] Address [address] [place] [address] Phone Care Team Providers Care Dental Associate Name Role Phone Bhaskar Henry MD Primary Care Provider [phone] Juan R Milton MD Unavailable [phone] Reason for Visit * Reason Comments Medication Refill Encounter Details Date Type Department Care Team (Late Contact Info) Description 04/06/2023 Refill [facility] - Internal Medicine - [place] [address] [place] [address] Bhaskar Henry MD [address] [place] [address] Medication Refill Social History Tobacco [...] Description 01/13/2025 2:15 PM CDT [facility] [address] [place] [address] Juan R Milton MD [address] [place] [address] documented as of this encounter Visit Diagnoses Not on filedocumented in this encounter Additional Health Concerns Infection Onset Date Last Indicated Resolved Time Respiratory Rule-Out 05/08/2024 05/08/2024 025 7:48 AM GRIDDLE COOK Assessment Noted Time PHQ-9 Depression Total Score: 3 10/16/19 23 3:00 PM CDT documented as of this encounter Care Teams Dental Associate Relationship Specialty Start Date End Date Bhaskar Henry MD PCP - General Internal Medicine 09/01/15 12/08/24 Juan R Milton MD [address] [place] [address] Consulting Physician Neurology 01/20/23 documented as of this encounter
--- OUTSIDE RECORDS SUMMARY | 2024-12-21 16:40 | XMS_ITS | Clinical Summary ---
Author Organization [facility] Address [address] [place] [address] Care Team Providers Care Extern Name Role Phone Bhaskar Henry MD Primary Care Provider [phone] Source Comments [facility],non-owned Affiliates and Associated Physician Practices is amultiple site organization consisting of ambulatory clinics and hospital sitesin [place], [place], [place] and [place]. This disclosure is being madepursuant to the Care Everywhere program and may not contain all information available regarding this patient. Last updated 17.[facility] [employer] Allergies Active Allergy Reactions Criticality Noted Date [...] by mouth once daily Active nystatin (MYCOSTATIN) 818573 UNIT/ML suspension Swish and swallow 5 mL [...] 81.6 kg (180 lb) 02/22/2020 2:47 PM COMPUTER FORENSICS ANALYST Height 165.1 cm (5' 5) 02/22/2020 2:47 PM COMPUTER FORENSICS ANALYST Body Mass Index 29.95 02/22/2020 2:47 PM COMPUTER FORENSICS ANALYST Plan of Treatment Health Maintenance Due Date [...] - 106 mg/dL 01/29/2020 12:32 PM CDT [facility] Specimen Type Arterial/C apillary 01/29/2020 12:32 PM CDT [facility] Blood BLOOD SPECIMEN / Unknown 01/29/2020 8:05 AM CDT 01/29/2020 12:32 PM CDT Nishant Taylor MD LAB - POINT OF CARE ORDERABLE S Final Result [facility] [address] [place] [address] from Last 3 Months or Most Recently Relevant to Health Maintenance Insurance Advance Directives * Full Code (Latest Code Status on File) Date Activated Date Inactivated Comments 01/28/2020 2:23 PM 01/29/2020 1:46 PM Care Teams Extern Relationship Specialty Start Date End Date Bhaskar Henry MD [address] [place] [address] PCP - General Internal Medicine 01/28/20
--- OUTSIDE RECORDS SUMMARY | 2024-12-21 16:40 | XMS_ITS | Clinical Summary ---
Author Organization [facility] Address [facility] [place] [address] Care Team Providers Care Analytical Tech Name Role Phone Unavailable Primary Care Provider Unavailabl e Social History Tobacco Use Types Packs/Day Years Used Date Smoking Tobacco: Never Assessed Comments Unknown Sex and Gender Information Value Date Recorded Sex Assigned at Not on file Legal Sex Female 5:46 PM QUALITY CONTROL TECHNICIAN Gender Identity Not on file Sexual Orientation [...]
--- OUTSIDE RECORDS SUMMARY | 2024-12-21 16:40 | XMS_ITS | Encounter Summary ---
Author Organization [facility] Address [address] [place] [address] Phone Care Team Providers Care Mining Teacher Name Role Phone Bhaskar Henry MD Primary Care Provider [phone] Juan R Milton MD Unavailable [phone] Reason for Visit * Reason Comments Medication Refill Encounter Details Date Type Department Care Team (Late st Contact Info) Description 01/14/2023 Refill [facility] - Neurology [facility] [address] [place] [address] Juan R Milton MD [address] [place] [address] Medication Refill Social History Tobacco [...] Dept 10/15/22 Office Visit Bhaskar Henry MD [facility] 10/01/22 Office Visit Juan R Milton MD [facility] Neurology [facility] Showing recent visits within past 182 days and meeting all other requirements Future Appointments Date Type Provider Dept 01/21/23 Appointment Bhaskar Henry MD [facility] 03/06/23 Appointment Juan R Milton MD [facility] Neurology [place] [facility] Showing future appointments within next 90 days and meeting all other requirements documented in this encounter Plan of Treatment Upcoming Encounters Date Type Department Care Team (Late st Contact Info) Description 01/13/2025 2:15 PM CDT Office Visit [facility] - Neurology - [place] [address] [place] [address] Juan R Milton MD [address] [facility] [place] [address] documented as of this encounter Visit Diagnoses Not on filedocumented in this encounter Additional Health Concerns Infection Onset Date Last Indicated Resolved Time Respiratory Rule-Out 05/08/2024 05/08/2024 025 7:48 AM EVENT PROMOTIONS COORDINATOR Assessment Noted Time PHQ-9 Depression Total Score: 3 10/16/19 23 3:00 PM CDT documented as of this encounter Care Teams Mining Teacher Relationship Specialty Start Date End Date Bhaskar Henry MD PCP - General Internal Medicine 09/01/15 12/08/24 Juan R Milton MD [address] [place] [address] Consulting Physician Neurology 01/20/23 documented as of this encounter
--- OUTSIDE RECORDS SUMMARY | 2024-12-21 16:40 | XMS_ITS | Clinical Summary ---
Author Organization [facility] Address [address] [facility] [address] [place] [address] Phone Care Team Providers Care Human Relations Manager Name Role Phone Juan R Milton MD Unavailable [phone] Allergies Active Allergy Reactions Criticality Noted Date [...] Active fluticasone (FLONASE) 50 MCG/ACT Suspension 1 [place] by Nasal route in the morning and [...] Type Department Care Team Description 12/15/2024 Telephone [facility] [place] [address] [place] [address] Bhaskar Henry MD Results 12/14/2024 Documentation Only [facility] [place] [address] [place] [address] Bhaskar Henry MD 12/08/2024 Telephone [facility] [address] [place] [address] Bhaskar Henry MD Appointment 11/09/2024 [facility] [address] [place] [address] Bhaskar Henry MD Medication Refill 10/01/2024 Documentation Only [facility] Internal Medicine [facility] [address] [place] [address] Bhaskar Henry MD from Last 3 Months [...] 0.6 oz pur e alcohol) [facility] Utilities Answer Date Recorded In the past 12 months has [facility] [employer], [employer], or [employer] threatened to shut off services in your [...] often do you attend chur ch or hoahaoism services? Never 07/31/2023 Do you belong to any clubs o r organizations such as protestant groups, unions, fraternal or athletic groups, or [...] Total Score - Questions 1-9 0 08/06 [facility] - Occupational Stress Questionnaire Answer Date [...] place to sleep or slept in a long-term (including now)? No 07/31/2023 Sexually Active Control [...] CDT Respiratory Rate 18 05/21/2024 2:51 PM COMMISSION BROKER Oxygen Saturation 94% 08/31/2024 2:10 PM CDT Inhaled Oxygen Concentration - - Weight 79.8 kg (176 lb) 08/31/2024 2:10 PM CDT Height 160 cm (5' 3) 08/31/2024 2:10 PM CDT Body Mass Index 31.18 08/31/2024 2:10 PM CDT Plan of Treatment Upcoming Encounters Date Type Department Care Team (Late st Contact Info) Description 01/13/2025 2:15 PM CDT Office Visit [facility] - Neurology [facility] [address] [place] [address] Juan R Milton MD [address] [place] [address] Health Maintenance Due Date Last Done Comments Hepatitis C Virus (HCV) Screening 1955 Cologuard 2002 10/10/2024 Immunochemical Fecal Occult Blood 2002 Zoster Immunization [...] Procedure Name Priority Date/Time Associated Diagnosis Comments COLOGUARD 10/10/2024 12:[address] CHEST SCREENING WO Routine 09/30/2023 12:00 AM CDT Smoking greater than 20 pack years ALCIDES BONE DENSITOMETRY AXIAL SKELETON Routine 09/30/2023 12:00 AM CDT Asymptomatic menopausal state ALCIDES SCREENING BILATERAL DIGITAL W CAD W KIESHA Routine 06/18/2022 1:57 PM CDT Breast cancer screening by mammogram from Last 3 Months or Most Recently Relevant to Health Maintenance Results * COLOGUARD (10/10/2024 12:00 AM CDT) 10/10/2024 us Provider Scan BODY FLUIDS & STOOLS ORDERABLES Final Result SCAN * CT CHEST SCREENING WO (09/30/2023 12:00 AM CDT) Anatomical Region Laterality Modality Chest N/A Other 09/30/2023 Bhaskar Henry MD IMG CT ORDERABLES Final [...] to exams dated: 05/16/2017, 09/21/2015, and 01/06/2014 [facility]. BREAST TISSUE:The tissue of both breasts [...] exam. Electronically signed by: Leatha funes/[email or web address]:06/18/2022 14:27:49 Engineering Manager Electronics(s): RT Moreno(R)(M), [facility] letter sent: Normal Exam Reading location: [facility] BI-RADS: 1 Negative Procedure Note Leatha [...] to exams dated: 05/16/2017, 09/21/2015, and 01/06/2014 [facility]. BREAST TISSUE:The tissue of both breasts [...] exam. Electronically signed by: Leatha funes/fabiola:06/18/2022 14:27:49 Engineering Manager Electronics(s): RT Moreno(R)(M), [facility] letter sent: Normal Exam Reading location: [facility] BI-RADS: 1 Negative us Bhaskar Henry MD IMG MAMMO ORDERABLES Final Result from Last 3 Months or Most Recently Relevant to Health Maintenance Insurance [facility] Care Teams Human Relations Manager Relationship Specialty Start Date End Date Juan R Milton MD [address] [place] [id number] Consulting Physician Neurology 01/20/23
--- OUTSIDE RECORDS SUMMARY | 2024-12-21 16:41 | XMS_ITS | Encounter Summary ---
Author Organization [facility] Address [address] [place] [address] Phone Care Team Providers Care Stack Clerk Name Role Phone Bhaskar Henry MD Primary Care Provider Juan R Milton MD Unavailable [phone] Encounter Details Date Type Department Care Team (Late st Contact Info) Description 10/18/2022 Telephone [facility] [address] [place], [place] [address] Bhaskar Henry MD [address] [place] [address] Social History Tobacco Use Types Packs/Day Years [...] requested by Centralized Referral Management. [place] [facility] OnCall - Centralized Referral Management 10/18/2022, 10:08 AM CDT documented in this encounter Plan of Treatment Upcoming Encounters Date Type Department Care Team (Late st Contact Info) Description 01/13/2025 2:15 PM CDT Office Visit [facility] [address] [place] [address] Juan R Milton MD [address] [place] [address] documented as of this encounter Visit Diagnoses Not on filedocumented in this encounter Additional Health Concerns Infection Onset Date Last Indicated Resolved Time Respiratory Rule-Out 05/08/2024 05/08/2024 025 7:48 AM RECYCLING COLLECTIONS DRIVER Assessment Noted Time PHQ-9 Depression Total Score: 3 10/16/19 23 3:00 PM CDT documented as of this encounter Care Teams Stack Clerk Relationship Specialty Start Date End Date Bhaskar Henry MD PCP - General Internal Medicine 09/01/15 12/08/24 Juan R Milton MD [address] [place] [address] Consulting Physician Neurology 01/20/23 documented as of this encounter
== END 2024-12-21 15:24 | disposition home or self-care (01) ==
LOC: CHSLAB 15:24
PROVIDERS: PCP Family Medicine; Visit Provider Family Medicine
DX: I10 Essential (primary) hypertension (principal); E03.9 Hypothyroidism, unspecified; E11.9 Type 2 diabetes mellitus without complications
CPT/HCPCS: 36415; 80053; 80061; 83036; 84443; 85025

== ENCOUNTER 2025-01-06 15:51 | Outpatient (CLI) | payer MEDICARE, SELFPAY ==
--- NOTE | ~2025-01-06 | MR_ITS ---
EXAMINATION: MR shoulder RT wo con DATE: 01/06/2025 16:38 INDICATION: Right shoulder pain and limited range of motion TECHNIQUE: Magnetic resonance imaging (MRI) of the right shoulder was performed without intravenous contrast. Sequences included axial PD-weighted FS FSE, coronal oblique PD-weighted FS FSE, coronal oblique T2-weighted FS FSE, sagittal PD-weighted FS FSE, and sagittal T1-weighted SE. COMPARISON: None. FINDINGS: Coracoacromial arch: Postoperative change of prior acromioplasty and distal clavicle resection. Rotator cuff: Mild supraspinatus and infraspinatus tendinopathy without tear. The subscapularis and teres minor tendons are normal. Normal rotator cuff muscle bulk and signal. Biceps tendon, glenoid labrum and glenohumeral cartilage: Postoperative change of prior bicipital tenodesis intertubercular groove. Glenoid labrum is normal. Mild glenohumeral osteoarthritis with partial- thickness cartilage loss without degenerative subchondral changes along the lesser degree along the glenoid. Fluid: Physiologic amount of fluid in the glenohumeral joint. No loose osteochondral bodies. No abnormal increased fluid in the subacromial/subdeltoid bursa to suggest bursitis. Bones: Normal marrow signal with no edema, fracture or pathologic marrow replacing process. IMPRESSION: 1. Postoperative change of prior acromioplasty, distal clavicle resection and bicipital tenodesis. 2. Mild supraspinatus and infraspinatus tendinopathy without discrete tear. 3. Mild glenohumeral osteoarthritis. Reviewed, dictated and finalized at location A. IMPRESSION: 1. Postoperative change of prior acromioplasty, distal clavicle resection and b icipital tenodesis. 2. Mild supraspinatus and infraspinatus tendinopathy without discrete tear. 3. Mild glenohumeral osteoarthritis.
--- OUTSIDE RECORDS SUMMARY | 2025-01-06 15:54 | XMS_ITS | Encounter Summary ---
Author Organization [facility] Address [address] [place] [address] Phone Care Team Providers Care Income Tax Consultant Name Role Phone Bhaskar Henry MD Primary Care Provider [phone] Juan R Milton MD Unavailable [phone] Reason for Visit * Reason Comments Medication Refill Encounter Details Date Type Department Care Team (Late st Contact Info) Description 01/14/[address] [facility] - Neurology [facility] [address] [place] [address] Juan R Milton MD [address] [place] [address] Medication Refill Social History Tobacco [...] Dept 10/15/22 Office Visit Bhaskar Henry MD [facility] 10/01/22 Office Visit Juan R Milton MD [facility] Neurology [facility] Showing recent visits within past 182 days and meeting all other requirements Future Appointments Date Type Provider Dept 01/21/23 Appointment Bhaskar Henry MD [facility] 03/06/23 Appointment Juan R Milton MD [facility] Neurology [facility] Showing future appointments within next 90 days and meeting all other requirements documented in this encounter Plan of Treatment Upcoming Encounters Date Type Department Care Team (Late st Contact Info) Description 01/13/2025 2:15 PM CDT Office Visit [facility] - Neurology - [place] [address] [facility] [place] [address] Juan R Milton MD [address] [place] [address] documented as of this encounter Visit Diagnoses Not on filedocumented in this encounter Additional Health Concerns Infection Onset Date Last Indicated Resolved Time Respiratory Rule-Out 05/08/2024 05/08/2024 025 7:48 AM PARALEGAL INSTRUCTOR Assessment Noted Time PHQ-9 Depression Total Score: 3 10/16/19 23 3:00 PM CDT documented as of this encounter Care Teams Income Tax Consultant Relationship Specialty Start Date End Date Bhaskar Henry MD PCP - General Internal Medicine 09/01/15 12/08/24 Juan R Milton MD [address] [place] [address] Consulting Physician Neurology 01/20/23 documented as of this encounter
--- OUTSIDE RECORDS SUMMARY | 2025-01-06 15:54 | XMS_ITS | Encounter Summary ---
Author Organization [facility] Address [address] [place] [address] Phone Care Team Providers Care Church Business Administrator Name Role Phone Bhaskar Henry MD Primary Care Provider [phone] Juan R Milton MD Unavailable [phone] Reason for Visit * Reason Comments Medication Refill Encounter Details Date Type Department Care Team (Late Contact Info) Description 04/06/2023 Refill [facility] - Internal Medicine - [place] [address] [place] [address] Bhaskar Henry MD [address] [place] [address] Medication Refill Social History Tobacco [...] Description 01/13/2025 2:15 PM CDT [facility] [address] [place] [address] Juan R Milton MD [address] [place] [address] documented as of this encounter Visit Diagnoses Not on filedocumented in this encounter Additional Health Concerns Infection Onset Date Last Indicated Resolved Time Respiratory Rule-Out 05/08/2024 05/08/2024 025 7:48 AM SAUSAGE TIER Assessment Noted Time PHQ-9 Depression Total Score: 3 10/16/19 23 3:00 PM CDT documented as of this encounter Care Teams Church Business Administrator Relationship Specialty Start Date End Date Bhaskar Henry MD PCP - General Internal Medicine 09/01/15 12/08/24 Juan R Milton MD [address] [place] [address] Consulting Physician Neurology 01/20/23 documented as of this encounter
--- OUTSIDE RECORDS SUMMARY | 2025-01-06 15:54 | XMS_ITS | Clinical Summary ---
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
--- OUTSIDE RECORDS SUMMARY | 2025-01-06 15:54 | XMS_ITS | Patient Health Record ---
Author Organization [facility] Address [address] [place], [place] [address] Care Team Providers Care Health Services Rn Name Role Phone SILVIA CASTANEDA Unavailable [phone] HenryVern jonesJovani Unavailable Unavailable Reason For Referral No Information Medications Medication SIG (Take, Route, Frequency, Duration) Notes Start Date End Date Status meloxicam 7.5 MG Oral Tablet [Mobic] ORAL meloxicam 7.5 MG Oral Tablet [Mobic]Original Medicationmeloxicam 7.5 MG Oral Tablet [Mobic] *Reorder from [employer] for eRx and Interaction Alerts* 08/26/2014 Active Medrol Dosepak ORAL Medrol DosepakOr iginal MedicationMedrol Dosepak *Reorder from [employer] for eRx and Interaction Alerts* 09/16/2014 Active Plan Of Treatment No Information Insurance Providers Payer Name Payer Address Payer Phone Subscriber Number Group Number Insured Name Patient Relationship to Insured Coverage Start Date Coverage End Date [facility] ([facility]) [address] [place], [place] [id number] JYOTHI BELLA Self - patient is the insured
--- OUTSIDE RECORDS SUMMARY | 2025-01-06 15:54 | XMS_ITS | Encounter Summary ---
Author Organization [facility] Address [address] [place] [address] Phone Care Team Providers Care Special Education Administrator Name Role Phone Bhaskar Henry MD Primary Care Provider [phone] Juan R Milton MD Unavailable [phone] Encounter Details Date Type Department Care Team (Late st Contact Info) Description 10/18/2022 Telephone [facility] [address] [place], [place] [address] Bhaskar Henry MD [address] [place] [address] Social History Tobacco Use Types Packs/Day Years [...] requested by Centralized Referral Management. [facility] [place] OnCall - Centralized Referral Management 10/18/2022, 10:08 AM CDT documented in this encounter Plan of Treatment Upcoming Encounters Date Type Department Care Team (Late st Contact Info) Description 01/13/2025 2:15 PM CDT Office Visit [facility] - Neurology [facility] [address] [place] [address] Juan R Milton MD [address] [place] [address] documented as of this encounter Visit Diagnoses Not on filedocumented in this encounter Additional Health Concerns Infection Onset Date Last Indicated Resolved Time Respiratory Rule-Out 05/08/2024 05/08/2024 025 7:48 AM HOME AID Assessment Noted Time PHQ-9 Depression Total Score: 3 10/16/19 23 3:00 PM CDT documented as of this encounter Care Teams Special Education Administrator Relationship Specialty Start Date End Date Bhaskar Henry MD PCP - General Internal Medicine 09/01/15 12/08/24 Juan R Milton MD [address] [place] [address] Consulting Physician Neurology 01/20/23 documented as of this encounter
--- OUTSIDE RECORDS SUMMARY | 2025-01-06 15:54 | XMS_ITS | Clinical Summary ---
Author Organization [facility] Address [address] [facility] [place] [address] Care Team Providers Care Environmental Law Professor Name Role Phone Bhaskar Henry MD Primary Care Provider [phone] Source Comments [facility],non-owned Affiliates and Associated Physician Practices is amultiple site organization consisting of ambulatory clinics and hospital sitesin [place], [place], [place]. This disclosure is being madepursuant to the Care Everywhere program and may not contain all information available regarding this patient. Last updated 17.[facility] Sensors Allergies Active Allergy Reactions Criticality Noted Date [...] by mouth once daily Active nystatin (MYCOSTATIN) 363137 UNIT/ML suspension Swish and swallow 5 mL [...] 81.6 kg (180 lb) 02/22/2020 2:47 PM HAND BUNCH MAKER Height 165.1 cm (5' 5) 02/22/2020 2:47 PM HAND BUNCH MAKER Body Mass Index 29.95 02/22/2020 2:47 PM HAND BUNCH MAKER Plan of Treatment Health Maintenance Due Date [...] Type Arterial/C apillary 01/29/2020 12:32 PM CDT [facility] Blood BLOOD SPECIMEN / Unknown 01/29/2020 8:05 AM CDT 01/29/2020 12:32 PM CDT us Nishant Taylor MD LAB - POINT OF CARE ORDERABLE S Final Result [facility] [address] [place] [address] from Last 3 Months or Most Recently Relevant to Health Maintenance [place] [address] [place] [address] [employer] [facility] MANAGED MEDICARE ADV SELF PAY NO INSURANCE Member Subscriber Plan / Payer (Ef fective for All Dates) Name:Juana Banuelos Member ID:Not on file Relation to Subscriber:Not on file Name:JUANA BANUELOS Subscriber ID:Not on file (Home) Address: [address] [place] [address] Payer ID:Not on file Group ID:Not on file Type:Self Pay Address: [place], [place] ANTHEM Advance Directives * Full Code (Latest Code Status on File) Date Activated Date Inactivated Comments 01/28/2020 2:23 PM 01/29/2020 1:46 PM Care Teams Environmental Law Professor Relationship Specialty Start Date End Date Bhaskar Henry MD [address] [place] [address] PCP - General Internal Medicine 01/28/20
--- OUTSIDE RECORDS SUMMARY | 2025-01-06 15:54 | XMS_ITS | Clinical Summary ---
Author Organization [facility] Address [address] [address] [place] [address] Phone Care Team Providers Care Pressure Tester Name Role Phone Juan R Milton MD Unavailable [phone] Allergies Active Allergy Reactions Criticality Noted Date [...] Active fluticasone (FLONASE) 50 MCG/ACT Suspension 1 Lengby by Nasal route in the morning and [...] Type Department Care Team Description 12/15/2024 Telephone [facility] [address] [place] [address] Bhaskar Henry MD Results 12/14/2024 Documentation Only [facility] [address] [place] [address] Bhaskar Henry MD 12/08/2024 Telephone [facility] Call Center [address] [place] [address] Bhaskar Henry MD Appointment 11/09/2024 Refill [facility] Internal Medicine - [place] [address] [place] [address] Bhaskar Henry MD Medication Refill from Last 3 Months Immunizations Immunization Administration [...] 0.6 oz pur e alcohol) [facility] Utilities Answer Date Recorded In the [...] often do you attend chur ch or yazidism services? Never 07/31/2023 Do you belong to any clubs o r organizations such as buddhist groups, unions, fraternal or athletic groups, or [...] Total Score - Questions 1-9 0 08/06 [facility] of Occupat ional Health - Occupational Stress [...] place to sleep or slept in a mcc (including now)? No 07/31/2023 Sexually Active Control [...] CDT Respiratory Rate 18 05/21/2024 2:51 PM PATIENT SCHEDULING COORDINATOR Oxygen Saturation 94% 08/31/2024 2:10 PM CDT Inhaled Oxygen Concentration - - Weight 79.8 kg (176 lb) 08/31/2024 2:10 PM CDT Height 160 cm (5' 3) 08/31/2024 2:10 PM CDT Body Mass Index 31.18 08/31/2024 2:10 PM CDT Plan of Treatment Upcoming Encounters Date Type Department Care Team (Late st Contact Info) Description 01/13/2025 2:15 PM CDT Office Visit [facility] - Neurology [facility] [address] [place] [address] Juan R Milton MD [address] [place] [address] Health Maintenance Due Date Last Done Comments Hepatitis C Virus (HCV) Screening 1955 Immunochemical Fecal Occult Blood 2002 Zoster Immunization (1 of 2) 08/24/2007 Mammogram 06/19/2023 06/18/2022, 05/16/2017, 09/21/2015 Medicare Initial AWV G0438 08/06/2023 Lung Cancer Screening 09/29/2024 09/30/2023 , 06/18/2022 SARS-COV-2 Immunization ( season) 2024 03/21/2021, 07/14/2020, 06/14/2020 Colonoscopy 09/04/2025 09/05/2015 DEXA Bone Density 09/29/2025 09/30/2023, 09/30/2023 Pneumococcal Immunization (5 0+ years) (3 of 3 - PCV20 or PCV21) 03/29/2026 03/29/2021, 01/18/2011 Cologuard 10/11/2027 10/10/2024 Colorectal Cancer Screening 10/11/2027 Td Immunization Every 10 Yea rs (Adults [...] Region Laterality Modality BODY N/A Other 09/30/2023 Bhaskar Henry MD IMG DEXA ORDERABLES Final [...] to exams dated: 05/16/2017, 09/21/2015, and 01/06/2014 [facility]. BREAST TISSUE:The tissue of both [...] next screening exam. Electronically signed by: Leatha funes/penheber:06/18/2022 14:27:49 Veterans' Coordinator(s): RT Moreno(R)(M), [facility] letter sent: Normal Exam Reading location: [facility] BI-RADS: 1 Negative Procedure Note [...] to exams dated: 05/16/2017, 09/21/2015, and 01/06/2014 [facility]. BREAST TISSUE:The tissue of both [...] Leatha De La Fuente M.D. ab/penrad:06/18/2022 14:27:49 Veterans' Coordinator(s): RT Moreno(R)(M), [facility] letter sent: Normal Exam Reading location: [facility] BI-RADS: 1 Negative Bhaskar Henry MD IMG MAMMO ORDERABLES Final Result from Last 3 Months or Most Recently Relevant to Health Maintenance Insurance [facility] Care Teams Pressure Tester Relationship Specialty Start Date End Date Juan R Milton MD [address] [place] [address] Consulting Physician Neurology 01/20/23
== END 2025-01-06 15:52 | disposition home or self-care (01) ==
LOC: CHSIMG 15:52
PROVIDERS: PCP Family Medicine; Visit Provider Family Medicine
DX: S46.211A Strain of muscle, fascia and tendon of other parts of biceps, right arm, initial encounter (principal); Z98.890 Other specified postprocedural states; M19.011 Primary osteoarthritis, right shoulder
CPT/HCPCS: 73221

== ENCOUNTER 2025-01-20 11:17 | Outpatient (CLI) | payer MEDICARE, SELFPAY ==
--- NOTE | ~2025-01-20 | MM_ITS ---
EXAMINATION: MM screening ying BI w karolina HISTORY: Screening TECHNIQUE: Craniocaudal and mediolateral oblique 3-D tomosynthesis images were obtained and synthetic 2-D images were generated. CAD analysis was submitted and interpreted. COMPARISON: No prior mammogram is available for comparison at this institution. BREAST PARENCHYMAL COMPOSITION: The breasts are heterogeneously dense, which may obscure small masses. FINDINGS: There is no evidence of suspicious mass, calcification, or architectural distortion to suggest malignancy. IMPRESSION: 1. No mammographic evidence of malignancy. Recommend routine screening mammography in one year. BI-RADS Category 2: Benign finding(s) Reviewed, dictated and finalized at location Q. IMPRESSION: 1. No mammographic evidence of malignancy. Recommend routine screening mammogra phy in one year. BI-RADS Category 2: Benign finding(s)
[2025-01-20 11:44] LABS: Hematocrit 44.6 % (35.0-42.0); Hemoglobin 16.2 g/dL (11.7-13.8); Immature Granulocyte Percent A 0.7 % (0.0-0.0); Lymphocytes Absolute Auto 2.73 K/mm3 (1.10-4.50); Mean Corpuscular HGB Conc 36.3 g/dL (32-36); Mean Corpuscular Hemoglobin 32.2 pg (27.0-31.0); Mean Corpuscular Volume 88.7 fL (78.0-102.0); Nucleated Red Blood Cells Absolute Auto 0.00 K/mm3 (0.00-0.00); Nucleated Red Blood Cells Perc 0.0 % (0-0.0); Platelet Count Result 464 K/mm3 (150-420); Red Blood Count 5.03 M/mm3 (4.20-5.40); White Blood Count 10.1 K/mm3 (4.8-10.8)
--- OUTSIDE RECORDS SUMMARY | 2025-01-20 13:21 | XMS_ITS | Patient Health Record ---
Author Organization [facility] Address [address] [place], [place] [address] Care Team Providers Care Food Processing Chemist Name Role Phone SILVIA CASTANEDA Unavailable [phone] HenryJovani jones Unavailable Unavailable Reason For Referral No Information Medications Medication SIG (Take, Route, Frequency, Duration) Notes Start Date End Date Status meloxicam 7.5 MG Oral Tablet [Mobic] ORAL meloxicam 7.5 MG Oral Tablet [Mobic]Original Medicationmeloxicam 7.5 MG Oral Tablet [Mobic] *Reorder from [employer] for eRx and Interaction Alerts* 08/26/2014 Active Medrol Dosepak ORAL Medrol DosepakOr iginal MedicationMedrol Dosepak *Reorder from [employer] for eRx and Interaction Alerts* 09/16/2014 Active Plan Of Treatment No Information Insurance Providers Payer Name Payer Address Payer Phone Subscriber Number Group Number Insured Name Patient Relationship to Insured Coverage Start Date Coverage End Date [facility] (Maryjane [facility]) [address] [place], [place] [id number] JYOTHI BELLA Self - patient is the insured
--- OUTSIDE RECORDS SUMMARY | 2025-01-20 13:21 | XMS_ITS | Encounter Summary ---
Author Organization [facility] Address [address] [place] [address] Phone Care Team Providers Care Steam Setter Name Role Phone Bhaskar Henry MD Primary Care Provider Juan R Milton MD Unavailable [phone] Provider, None Primary Care Provider Unavailabl e Reason for Visit * Reason Comments Medication Refill Encounter Details Date Type Department Care Team (Late Contact Info) Description 04/06/2023 Refill [facility] - [place] [address] [place] [address] Bhaskar Henry MD [address] [place] [address] Medication Refill Social History Tobacco [...] Care Team (Late st Contact Info) Description 04/28/2025 2:15 PM COIN PURSE ASSEMBLER [facility] - Neurology - [place] [address] [place] [address] Juan R Milton MD [address] [place] [address] documented as of this encounter Visit Diagnoses Not on filedocumented in this encounter Additional Health Concerns Infection Onset Date Last Indicated Resolved Time Respiratory Rule-Out 05/08/2024 05/08/2024 025 7:48 AM COIN PURSE ASSEMBLER Assessment Noted Time PHQ-9 Depression Total Score: 3 10/16/19 23 3:00 PM CDT documented as of this encounter Care Teams Steam Setter Relationship Specialty Start Date End Date Bhaskar Henry MD PCP - General Internal Medicine 09/01/15 12/08/24 Provider, None [place] PCP - General 01/12/25 Juan R Milton MD [address] [place] [address] Consulting Physician Neurology 01/20/23 documented as of this encounter
--- OUTSIDE RECORDS SUMMARY | 2025-01-20 13:21 | XMS_ITS | Encounter Summary ---
Author Organization [facility] Address [address] [place] [address] Phone Care Team Providers Care Instrument And Control Service Person Name Role Phone Bhaskar Henry MD Primary Care Provider Juan R Milton MD Unavailable [phone] Provider, None Primary Care Provider Unavailabl e Reason for Visit * Reason Comments Medication Refill Encounter Details Date Type Department Care Team (Late st Contact Info) Description 01/14/2023 Refill [facility] - Neurology [facility] [address] [place] [address] Juan R Milton MD [address] [place] [address] Medication Refill Social History Tobacco [...] Dept 10/15/22 Office Visit Bhaskar Henry MD [facility] 10/01/22 Office Visit Juan R Milton MD [facility] Neurology [facility] [place] Showing recent visits within past 182 days and meeting all other requirements Future Appointments Date Type Provider Dept 01/21/23 Appointment Bhaskar Henry MD [facility] 03/06/23 Appointment Juan R Milton MD [facility] Neurology [facility] [place] Showing future appointments within next 90 days and meeting all other requirements documented in this encounter Plan of Treatment Upcoming Encounters Date Type Department Care Team (Late st Contact Info) Description 04/28/2025 2:15 PM MANAGER MONEY Office Visit [facility] - Neurology - [place] [address] [facility] [place] [address] Juan R Milton MD [address] [facility] [place] [address] documented as of this encounter Visit Diagnoses Not on filedocumented in this encounter Additional Health Concerns Infection Onset Date Last Indicated Resolved Time Respiratory Rule-Out 05/08/2024 05/08/2024 02/03/2 025 7:48 AM MANAGER MONEY Assessment Noted Time PHQ-9 Depression Total Score: 3 10/16/19 23 3:00 PM CDT documented as of this encounter Care Teams Instrument And Control Service Person Relationship Specialty Start Date End Date Bhaskar Henry MD PCP - General Internal Medicine 09/01/15 12/08/24 Provider, None [place] PCP - General 01/12/25 Juan R Milton MD [address] [place] [address] Consulting Physician Neurology 01/20/23 documented as of this encounter
--- OUTSIDE RECORDS SUMMARY | 2025-01-20 13:21 | XMS_ITS | Clinical Summary ---
Author Organization [facility] Address [address] [facility] [address] [place] [address] Phone Care Team Providers Care Corporate Buyer Name Role Phone Juan R Milton MD Unavailable [phone] Provider, None Primary Care Provider Unavailabl e Allergies Active Allergy Reactions Criticality Noted Date [...] by mouth daily. 90 Capsule 1 Active Cholecalciferol (Vitamin D3) 2000 UNIT Capsule Take 2,000 Units by mouth daily. Active fluticasone (FLONASE) 50 MCG/ACT Suspension 1 [place] by Nasal route in the morning and [...] Type Department Care Team Description 12/15/2024 Telephone [facility] [address] [place] [address] Bhaskar Henry MD Results 12/14/2024 Documentation Only [facility] [address] [place] [address] Bhaskar Henry MD 12/08/2024 Telephone [facility] Call Center [address] [place] [address] Bhaskar Henry MD Appointment 11/09/2024 Refill [facility] Internal Medicine [facility] [address] [place] [address] Bhaskar Henry MD Medication Refill from Last [...] drink = 0.6 oz pur e alcohol) [facility] Utilities Answer Date Recorded In the [...] often do you attend chur ch or judaism services? Never 07/31/2023 Do you belong to any clubs o r organizations such as advent groups, unions, fraternal or athletic groups, or [...] Total Score - Questions 1-9 0 08/06 [facility] - Occupational [...] place to sleep or slept in a custodial (including now)? No 07/31/2023 Sexually Active Control [...] CDT Respiratory Rate 18 05/21/2024 2:51 PM SLEEVE SEWER Oxygen Saturation 94% 08/31/2024 2:10 PM CDT Inhaled Oxygen Concentration - - Weight 79.8 kg (176 lb) 08/31/2024 2:10 PM CDT Height 160 cm (5' 3) 08/31/2024 2:10 PM CDT Body Mass Index 31.18 08/31/2024 2:10 PM CDT Plan of Treatment Upcoming Encounters Date Type Department Care Team (Late st Contact Info) Description 04/28/2025 2:15 PM SLEEVE SEWER Office Visit [facility] - Neurology [facility] [address] [place] [address] Juan R Milton MD [address] [place] [address] Health Maintenance Due Date Last Done Comments Hepatitis C Virus (HCV) Screening 1955 Immunochemical Fecal Occult Blood 2002 Zoster Immunization (1 of 2) 08/24/2007 Mammogram 06/19/2023 06/18/2022, 05/16/2017, 09/21/2015 Medicare Initial AWV G0438 08/06/2023 Lung Cancer Screening 09/29/2024 09/30/2023 , 06/18/2022 SARS-COV-2 Immunization ( season) 2024 03/21/2021, 07/14/2020, 06/14/2020 DEXA Bone Density 09/29/2025 09/30/2023, 09/30/2023 Pneumococcal Immunization (5 0+ years) (3 of 3 - PCV20 or PCV21) 03/29/2026 03/29/2021, 01/18/2011 Cologuard 10/11/2027 10/10/2024 Td Immunization Every 10 Yea rs (Adults With 1 Tdap) 09/11/2028 09/11/2018 Colonoscopy 12/21/2034 12/21/2024, 09/05/2015 Colorectal Cancer Screening 12/21/2034 DTaP/Tdap/Td Immunization Discontinued 09/11/2018 Pneumococcal Immunization Combined [...] to exams dated: 05/16/2017, 09/21/2015, and 01/06/[address] [facility]. BREAST TISSUE:The tissue of both [...] exam. Electronically signed by: Leatha funes/[email or web address]:06/18/2022 14:27:49 Residential Plumber(s): RT Moreno(R)(M), [facility] letter sent: Normal Exam Reading location: [facility] BI-RADS: 1 Negative Procedure Note Leatha [...] to exams dated: 05/16/2017, 09/21/2015, and 01/06/[address] [facility]. BREAST TISSUE:The tissue of both [...] exam. Electronically signed by: Leatha funes/[email or web address]:06/18/2022 14:27:49 Residential Plumber(s): RT Moreno(R)(M), [facility] letter sent: Normal Exam Reading location: [facility] BI-RADS: 1 Negative us Bhaskar Henry MD IMG MAMMO ORDERABLES Final Result from Last 3 Months or Most Recently Relevant to Health Maintenance Insurance [facility]IC[facility] [place] [id number] Care Teams Corporate Buyer Relationship Specialty Start Date End Date Provider, None [place] PCP - General 01/12/25 Juan R Milton MD [address] [place] [address] Consulting Physician Neurology 01/20/23
--- OUTSIDE RECORDS SUMMARY | 2025-01-20 13:21 | XMS_ITS | Encounter Summary ---
Author Organization [facility] Address [address] [place] [address] Phone Care Team Providers Care Apparel Sales Associate Name Role Phone Bhaskar Henry MD Primary Care Provider Juan R Milton MD Unavailable [phone] Provider, None Primary Care Provider Unavailabl e Encounter Details Date Type Department Care Team (Late st Contact Info) Description 10/18/2022 Telephone [facility] [address] [place], [place] [address] Bhaskar Henry MD [address] [place] [address] Social History Tobacco Use Types Packs/Day Years [...] encounter Miscellaneous Notes * Telephone Encounter - VirajRiver Belle - 10/18/2022 10:08 AM CDT SITUATION: [...] requested by Centralized Referral Management. River Cali [facility] OnCall - Centralized Referral Management 10/18/2022, 10:08 AM CDT documented in this encounter Plan of Treatment Upcoming Encounters Date Type Department Care Team (Late st Contact Info) Description 04/28/2025 2:15 PM TANK CLEANER Office Visit [facility] - [facility]rology [facility] [address] [place] [address] Juan R Milton MD [address] [place] [address] documented as of this encounter Visit Diagnoses Not on filedocumented in this encounter Additional Health Concerns Infection Onset Date Last Indicated Resolved Time Respiratory Rule-Out 05/08/2024 05/08/2024 025 7:48 AM TANK CLEANER Assessment Noted Time PHQ-9 Depression Total Score: 3 10/16/19 23 3:00 PM CDT documented as of this encounter Care Teams Apparel Sales Associate Relationship Specialty Start Date End Date Bhaskar Henry MD PCP - General Internal Medicine 09/01/15 12/08/24 Provider, None [place] PCP - General 01/12/25 Juan R Milton MD [address] [place] [address] Consulting Physician Neurology 01/20/23 documented as of this encounter
--- OUTSIDE RECORDS SUMMARY | 2025-01-20 13:21 | XMS_ITS | Clinical Summary ---
Author Organization [facility] Address [facility] [place] [address] Care Team Providers Care Green Building Engineer Name Role Phone Unavailable Primary Care Provider Unavailabl e Social History Tobacco Use Types Packs/Day Years Used Date Smoking Tobacco: Never Assessed Comments Unknown Sex and Gender Information Value Date Recorded Sex Assigned at Not on file Legal Sex Female 5:46 PM HOTEL GUEST SERVICE AGENT Gender Identity Not on file Sexual Orientation [...] Vaccine ( - 2023-2 5 season) 2024 Influenza Adult (#1) 2025 RSV Immunization or 60+ Years (1 - [...]
--- OUTSIDE RECORDS SUMMARY | 2025-01-20 13:21 | XMS_ITS | Clinical Summary ---
Author Organization [facility] Address [address] [place] [address] Care Team Providers Care Bit Tapper Name Role Phone Bhaskar Henry MD Primary Care Provider [phone] Source Comments [facility],non-owned Affiliates and Associated Physician Practices is amultiple site organization consisting of ambulatory clinics and hospital sitesin [place], [place], [place] and [place]. This disclosure is being madepursuant to the Care Everywhere program and may not contain all information available regarding this patient. Last updated 17.[facility] katena Allergies Active Allergy Reactions Criticality Noted Date [...] by mouth once daily Active nystatin (MYCOSTATIN) 313078 UNIT/ML suspension Swish and swallow 5 mL [...] 81.6 kg (180 lb) 02/22/2020 2:47 PM MACHINE SIGN WRITER Height 165.1 cm (5' 5) 02/22/2020 2:47 PM MACHINE SIGN WRITER Body Mass Index 29.95 02/22/2020 2:47 PM MACHINE SIGN WRITER Plan of Treatment Health Maintenance Due Date [...] Type Arterial/C apillary 01/29/2020 12:32 PM CDT [facility] Blood BLOOD SPECIMEN / Unknown 01/29/2020 8:05 AM CDT 01/29/2020 12:32 PM CDT us Nishant Taylor MD LAB - POINT OF CARE ORDERABLE S Final Result [facility] [address] [place] [address] from Last 3 Months or Most Recently Relevant to Health Maintenance [place] [address] [email or web address] [facility] MANAGED MEDICARE ADV SELF PAY NO INSURANCE Member Subscriber Plan / Payer (Ef fective for All Dates) Name:Juana Banuelos Member ID:Not on file Relation to Subscriber:Not on file Name:JUANA BANUELOS Subscriber ID:Not on file (Home) Address: [address] [place] [address] Payer ID:Not on file Group ID:Not on file Type:Self Pay Address: [place], [place] Advance Directives * Full Code (Latest Code Status on File) Date Activated Date Inactivated Comments 01/28/2020 2:23 PM 01/29/2020 1:46 PM Care Teams Bit Tapper Relationship Specialty Start Date End Date Bhaskar Henry MD [address] [place] [address] PCP - General Internal Medicine 01/28/20
== END 2025-01-20 11:18 | disposition home or self-care (01) ==
LOC: CHSLAB 11:18
PROVIDERS: PCP Nurse Practitioner Family; Visit Provider Nurse Practitioner Family
DX: Z12.31 Encounter for screening mammogram for malignant neoplasm of breast (principal); D72.829 Elevated white blood cell count, unspecified
CPT/HCPCS: 36415; 77063; 77067; 85025

== ENCOUNTER 2025-02-02 11:05 | Outpatient (CLI) | payer MEDICARE, SELFPAY ==
--- NOTE | ~2025-02-02 | CT_ITS ---
EXAMINATION:CT lung screening DATE: 02/02/2025 11:56 INDICATION: Personal history of nicotine dependence. TECHNIQUE: Computed tomography (CT) of the chest was performed without intravenous contrast. Automated exposure control and iterative reconstruction technique were employed. The dose-length product (DLP) was 121.91 mGy-cm. COMPARISON: Chest CT 09/30/2023, CT abdomen and pelvis 12/25/2014 FINDINGS: There is moderate emphysema. There are a few scattered 2-3 mm nodules in the lungs. No pleural effusion. The heart size is normal. There are coronary artery calcifications. No pericardial effusion. There are 6.0 cm and 4.7 cm hypodense masses in left hepatic lobe. There is severe cervical and thoracic spondylosis. IMPRESSION: 1. Lung-RADS category 2S: Benign appearance or behavior. Continue annual screening with noncontrast low-dose chest CT in 12 months. 2. New liver masses suspicious for metastatic disease. Abdomen MRI without and with contrast is recommended. Reviewed, dictated and finalized at location E. IMPRESSION: 1. Lung-RADS category 2S: Benign appearance or behavior. Continue annual screen ing with noncontrast low-dose chest CT in 12 months. 2. New liver masses suspicious for metastatic disease. Abdomen MRI without and with contrast is recommended.
--- OUTSIDE RECORDS SUMMARY | 2025-02-02 12:42 | XMS_ITS | Clinical Summary ---
Author Organization [facility] Address [address] [place] [address] Care Team Providers Care Flake Miller Helper Name Role Phone Bhaskar Henry MD Primary Care Provider [phone] Source Comments [facility],non-owned Affiliates and Associated Physician Practices is amultiple site organization consisting of ambulatory clinics and hospital sitesin [place], [place], [place] and [place]. This disclosure is being madepursuant to the Care Everywhere program and may not contain all information available regarding this patient. Last updated 17.[facility] [employer] Allergies Active Allergy Reactions Criticality Noted Date [...] by mouth once daily Active nystatin (MYCOSTATIN) 539874 UNIT/ML suspension Swish and swallow 5 mL [...] 81.6 kg (180 lb) 02/22/2020 2:47 PM EXTENSION FORESTER Height 165.1 cm (5' 5) 02/22/2020 2:47 PM EXTENSION FORESTER Body Mass Index 29.95 02/22/2020 2:47 PM EXTENSION FORESTER Plan of Treatment Health Maintenance Due Date [...] Type Arterial/C apillary 01/29/2020 12:32 PM CDT [facility] Blood BLOOD SPECIMEN / Unknown 01/29/2020 8:05 AM CDT 01/29/2020 12:32 PM CDT us Nishant Taylor MD LAB - POINT OF CARE ORDERABLE S Final Result [facility] [address] [place] [address] from Last 3 Months or Most Recently Relevant to Health Maintenance [place] [place] [address] [employer] [facility] MANAGED MEDICARE ADV SELF PAY NO INSURANCE Member Subscriber Plan / Payer (Ef fective for All Dates) Name:Juana Banuelos Member ID:Not on file Relation to Subscriber:Not on file Name:JUANA BANUELOS Subscriber ID:Not on file (Home) Address: [address] [place] [address] Payer ID:Not on file Group ID:Not on file Type:Self Pay Address: [place], [place] Advance Directives * Full Code (Latest Code Status on File) Date Activated Date Inactivated Comments 01/28/2020 2:23 PM 01/29/2020 1:46 PM Care Teams Flake Miller Helper Relationship Specialty Start Date End Date Bhaskar Henry MD [address] [place] [address] PCP - General Internal Medicine 01/28/20
--- OUTSIDE RECORDS SUMMARY | 2025-02-02 12:42 | XMS_ITS | Encounter Summary ---
Author Organization [facility] Address [address] [place] [address] Phone Care Team Providers Care Dowel Inserting Machine Operator Name Role Phone Bhaskar Henry MD Primary Care Provider [phone] Juan R Milton MD Unavailable Provider, None Primary Care Provider Unavailabl e Reason for Visit * Reason Comments Medication Refill Encounter Details Date Type Department Care Team (Late Contact Info) Description 04/06/2023 Refill [facility] - [place] [address] [place] [address] Bhaskar Henry MD [address] [place] [address] Medication Refill Social History Tobacco [...] st Contact Info) Description 04/28/2025 2:15 PM FILTRATION SUPERVISOR [facility] - [place] [address] [place] [address] Juan R Milton MD [address] [place] [address] documented as of this encounter Visit Diagnoses Not on filedocumented in this encounter Additional Health Concerns Infection Onset Date Last Indicated Resolved Time Respiratory Rule-Out 05/08/2024 05/08/2024 025 7:48 AM FILTRATION SUPERVISOR Assessment Noted Time PHQ-9 Depression Total Score: 3 10/16/19 23 3:00 PM CDT documented as of this encounter Care Teams Dowel Inserting Machine Operator Relationship Specialty Start Date End Date Bhaskar Henry MD PCP - General Internal Medicine 09/01/15 12/08/24 Provider, None [place] PCP - General 01/12/25 Juan R Milton MD [address] [place] [address] Consulting Physician Neurology 01/20/23 documented as of this encounter
--- OUTSIDE RECORDS SUMMARY | 2025-02-02 12:42 | XMS_ITS | Patient Health Record ---
Author Organization [facility] Address [address] [place], [place] [address] Care Team Providers Care Food Beverage Attendant Name Role Phone SILVIA CASTANEDA Unavailable [phone] HenryJovani jones Unavailable Unavailable Reason For Referral No Information Medications Medication SIG (Take, Route, Frequency, Duration) Notes Start Date End Date Status meloxicam 7.5 MG Oral Tablet [Mobic] ORAL meloxicam 7.5 MG Oral Tablet [Mobic]Original Medicationmeloxicam 7.5 MG Oral Tablet [Mobic] *Reorder from [facility]X [facility]ORY for eRx and Interaction Alerts* 08/26/2014 Active Medrol Dosepak ORAL Medrol DosepakOr iginal MedicationMedrol Dosepak *Reorder from PubCoderan for eRx and Interaction Alerts* 09/16/2014 Active Social History Social History Additional Details Category Social Info Options Details Migrated Social History Migrated Social History History of tobacco use : Current every day smoker , Smoking Status : Current every day smoker Plan Of Treatment No Information Insurance Providers Payer Name Payer Address Payer Phone Subscriber Number Group Number Insured Name Patient Relationship to Insured Coverage Start Date Coverage End Date ([facility]) [address] [place], [place] [id number] JYOTHI BELLA Self - patient is the insured
--- OUTSIDE RECORDS SUMMARY | 2025-02-02 12:42 | XMS_ITS | Encounter Summary ---
Author Organization [facility] Address [address] [place] [address] Phone Care Team Providers Care Distillery Worker Name Role Phone Bhaskar Henry MD Primary Care Provider Juan R Milton MD Unavailable [phone] Provider, None Primary Care Provider Unavailabl e Reason for Visit * Reason Comments Medication Refill Encounter Details Date Type Department Care Team (Late st Contact Info) Description 01/14/2023 Refill [facility] - [facility]rology [facility] [address] [place] [address] Juan R Milton MD [address] [place] [address] Medication Refill Social History Tobacco [...] Dept 10/15/22 Office Visit Bhaskar Henry MD [facility] [place] 10/01/22 Office Visit Juan R Milton MD [facility] [address] [facility] Showing recent visits within past 182 days and meeting all other requirements Future Appointments Date Type Provider Dept 01/21/23 Appointment Bhaskar Henry MD [facility] 03/06/23 Appointment Juan R Milton MD [facility] [address] Neurology [facility] Showing future appointments within next 90 days and meeting all other requirements documented in this encounter Plan of Treatment Upcoming Encounters Date Type Department Care Team (Late st Contact Info) Description 04/28/2025 2:15 PM ENVIRONMENTAL MONITORING TECHNICIAN Office Visit [facility] - Neurology - [place] [address] [facility] [place] [address] Juan R Milton MD [address] [facility] [place] [address] documented as of this encounter Visit Diagnoses Not on filedocumented in this encounter Additional Health Concerns Infection Onset Date Last Indicated Resolved Time Respiratory Rule-Out 05/08/2024 05/08/2024 02/03/2 025 7:48 AM ENVIRONMENTAL MONITORING TECHNICIAN Assessment Noted Time PHQ-9 Depression Total Score: 3 10/16/19 23 3:00 PM CDT documented as of this encounter Care Teams Distillery Worker Relationship Specialty Start Date End Date Bhaskar Henyr MD PCP - General Internal Medicine 09/01/15 12/08/24 Provider, None [place] PCP - General 01/12/25 Juan R Milton MD [address] [place] [address] Consulting Physician Neurology 01/20/23 documented as of this encounter
--- OUTSIDE RECORDS SUMMARY | 2025-02-02 12:42 | XMS_ITS | Clinical Summary ---
Author Organization [facility] Address [address] [facility] [address] [place] [address] Phone Care Team Providers Care Fur Stylist Name Role Phone Juan R Milton MD Unavailable [phone] Provider, None Primary Care Provider Unavailabl e Allergies Active Allergy Reactions Criticality Noted Date Comments Amoxicillin-Pot Clavulanate Rash 03/22/2021 Codeine Hives 09/05/2015 Egg Protein-Containing Drug Products Other (see Comments) 08/31/2015 WELTS Gabapentin Other (see Comments) 02/10/2024 Edema [...] Active fluticasone (FLONASE) 50 MCG/ACT Suspension 1 [place] by Nasal route in the morning and [...] Type Department Care Team Description 12/15/2024 Telephone [facility] [address] [place] [address] Bhaskar Henry MD Results 12/14/2024 Documentation Only [facility] [address] [place] [address] Bhaskar Henry MD 12/08/2024 Telephone [facility] [address] [place] [address] Bhaskar Henry MD Appointment 11/09/2024 Refill [facility] - Internal Medicine - [place] [address] [place] [address] Bhaskar Henry MD Medication Refill from Last [...] drink = 0.6 oz pur e alcohol) [facility] Utilities Answer Date Recorded In the past 12 months has e [employer], gas, oil, or water company threatened to [...] 07/31/2023 How often do you attend chur or oriental orthodox services? Never 07/31/2023 Do you belong to any clubs o r organizations such as mosque groups, unions, fraternal or athletic groups, or [...] Total Score - Questions 1-9 0 08/06 [facility] healthal Health - Occupational Stress Questionnaire Answer Date [...] CDT Respiratory Rate 18 05/21/2024 2:51 PM MICROSOFT ARCHITECT Oxygen Saturation 94% 08/31/2024 2:10 PM CDT Inhaled Oxygen Concentration - - Weight 79.8 kg (176 lb) 08/31/2024 2:10 PM CDT Height 160 cm (5' 3) 08/31/2024 2:10 PM CDT Body Mass Index 31.18 08/31/2024 2:10 PM CDT Plan of Treatment Upcoming Encounters Date Type Department Care Team (Late st Contact Info) Description 04/28/2025 2:15 PM MICROSOFT ARCHITECT Office Visit [facility] - Neurology [facility] [address] [place] [address] Juan R Milton MD [address] [place] [address] Health Maintenance Due Date Last Done Comments Hepatitis C Virus (HCV) Screening 1955 Immunochemical Fecal Occult Blood 2002 Zoster Immunization (1 of 2) 08/24/2007 Mammogram 06/19/2023 06/18/2022, 05/16/2017, 09/21/2015 Medicare Initial AWV G0438 08/06/2023 Lung Cancer Screening 09/29/2024 09/30/2023 , 06/18/2022 SARS-COV-2 Immunization ( - season) 2024 03/21/2021, 07/14/2020, 06/14/2020 DEXA Bone [...] to exams dated: 05/16/2017, 09/21/2015, and 01/06/2014 [facility]. BREAST TISSUE:The tissue of both breasts is [...] exam. Electronically signed by: Leatha funes/[email or web address]:06/18/2022 14:27:49 Clinical Evaluator(s): RT Moreno(R)(M), [facility] letter sent: Normal Exam Reading location: [facility] BI-RADS: 1 Negative Procedure Note Leatha [...] to exams dated: 05/16/2017, 09/21/2015, and 01/06/2014 [facility]. BREAST TISSUE:The tissue of both breasts is [...] exam. Electronically signed by: Leatha funes/[email or web address]:06/18/2022 14:27:49 Clinical Evaluator(s): RT Moreno(R)(M), [facility] letter sent: Normal Exam Reading location: [facility] BI-RADS: 1 Negative us Bhaskra Henry MD IMG MAMMO ORDERABLES Final Result from Last 3 Months or Most Recently Relevant to Health Maintenance Insurance MEDICARE C [facility] [place] [address] Care Teams Fur Stylist Relationship Specialty Start Date End Date Provider, None [place] PCP - General 01/12/25 Juan R Milton MD [address] [place] [address] Consulting Physician Neurology 01/20/23
--- OUTSIDE RECORDS SUMMARY | 2025-02-02 12:42 | XMS_ITS | Encounter Summary ---
Author Organization [facility] Address [address] [place] [address] Phone Care Team Providers Care Transplant Case Manager Name Role Phone Bhaskar Henry MD Primary Care Provider Jua nR Milton MD Unavailable [phone] Provider, None Primary Care Provider Unavailabl e Encounter Details Date Type Department Care Team (Late st Contact Info) Description 10/18/2022 Telephone [facility] [address] [place], [place] [address] Bhaskar Henry MD [address] [place] [address] Social History Tobacco Use Types Packs/Day Years [...] requested by Centralized Referral Management. River Cali [facility] OnCall - Centralized Referral Management 10/18/2022, 10:08 AM CDT documented in this encounter Plan of Treatment Upcoming Encounters Date Type Department Care Team (Late st Contact Info) Description 04/28/2025 2:15 PM SUPERINTENDENT CAR CONSTRUCTION Office Visit [facility] - Neurology [facility] [address] [place] [address] Juan R Milton MD [address] [place] [address] documented as of this encounter Visit Diagnoses Not on filedocumented in this encounter Additional Health Concerns Infection Onset Date Last Indicated Resolved Time Respiratory Rule-Out 05/08/2024 05/08/2024 025 7:48 AM SUPERINTENDENT CAR CONSTRUCTION Assessment Noted Time PHQ-9 Depression Total Score: 3 10/16/19 23 3:00 PM CDT documented as of this encounter Care Teams Transplant Case Manager Relationship Specialty Start Date End Date Bhaskar Henry MD PCP - General Internal Medicine 09/01/15 12/08/24 Provider, None [place] PCP - General 01/12/25 Juan R Milton MD [address] [place] [address] Consulting Physician Neurology 01/20/23 documented as of this encounter
--- NOTE | 2025-02-24 07:32 | WPDPFTINT ---
PFT Procedure Performed PFT Procedure Performed Spirometry with Pre/Post Bronchodilator Plethysmography (Lung Vol) Diffusing Cap (DLCO) Flow Vol Loop PFT Interpretation DOS: 02/02/2025 REQUESTING: Nataliya Rico REASON FOR TESTING: shortness of breath PULMONARY FUNCTION TESTS Results are reliable and reproducible. Repeatability of spirometry FEV1 maneuver pre and post bronchodilator is Grade A. The patient had excellent effort however had coughing on both pre and post bronchodilator expiratory maneuvers. Shobha Cotton Dust reference equations were used. Spirometry: The pre-bronchodilator FEV1 is 1.37 L, 60%. The pre-bronchodilator FVC is 1.91 L, 67%. The FEV1/FVC ratio is 72%, normal. After bronchodilator, the FEV1 is 1.34 L, 58%, -3%. After bronchodilator, the FVC is 2.51 L, 88%, +31%, significant improvement. The FEV1/FVC ratio is 53%. Lung volumes: The total lung capacity is 5.21 L, 103%, normal. The residual volume is 2.86 L, 144%, increased. The RV/TLC is 55%, increased. Airway resistance is increased. Diffusion: DLCO is 9.4, 43%, moderately decreased. The DLCO/VA is 2.58, 71%, mildly decreased. Flow volume loop: The flow volume loop shows coving of the expiratory limb. IMPRESSION: This study shows a moderate obstructive ventilatory impairment with excellent response to bronchodilator, normal total lung capacity with moderate air trapping, moderate diffusion impairment that corrects for alveolar volumes. There are no prior studies to compare. Jillian Rosales MD
== END 2025-02-02 11:06 | disposition home or self-care (01) ==
PROVIDERS: PCP Nurse Practitioner Family; Visit Provider Nurse Practitioner Family
DX: Z12.2 Encounter for screening for malignant neoplasm of respiratory organs (principal); Z87.891 Personal history of nicotine dependence; R16.0 Hepatomegaly, not elsewhere classified
CPT/HCPCS: 71271